=== PATIENT | female | born 1955 | race Caucasian/White ===

== ENCOUNTER → 2017-11-02 17:24 | Outpatient (CLI) | payer OTHER, SELFPAY ==
[2017-11-02 14:15] VITALS: BP 120/72; BMI 31.2
== END ==
PROVIDERS: Family Provider Family Medicine; PCP Family Medicine; Visit Provider Nurse Practitioner Women's Health
DX: Z12.4 Encounter for screening for malignant neoplasm of cervix (principal)

== ENCOUNTER → 2017-12-07 10:39 | Outpatient (CLI) | payer OTHER, SELFPAY ==
--- NOTE | 2017-12-07 10:42 | HPBI_ITS ---
MAMMOGRAPHY - BILATERAL SCREENING REASON FOR EXAM: Female, 62 years old. Routine annual screening examination. PERTINENT HISTORY: Non-contributory. TECHNIQUE: Digital bilateral breast linda (3D mammographic acquisition) in the CC and MLO projections. 2-D mediolateral oblique (MLO) and craniocaudad (CC) views of both breasts were obtained. CAD: Full Field Digital Mammography with Computer Added Detection was performed. COMPARISON: Comparison is made with prior outside examination dated October 29, 2016. FINDINGS: Breast Composition: The breasts are heterogeneously dense, which may obscure small masses. There are no dominant masses or suspicious calcifications. No other significant abnormalities are identified. There has been no significant change since the prior study. HPBI/SCREENING MAMM (CAD), BILAT IMPRESSION: Stable bilateral screening mammogram. Yearly follow-up mammogram recommended. (A) ASSESSMENT CATEGORY: BIRADS Category 1: Negative. A letter regarding these results will be sent to the patient by the facility within 30 days. Approximately 10% of breast cancers are not detected by mammography. A normal mammogram should not delay biopsy of a clinically suspicious abnormality. [id number] Electronically Signed: Rajinder Vega MD at 12:47 EDT Tel [phone], Service support ,
== END ==
PROVIDERS: Visit Provider Nurse Practitioner Women's Health
DX: Z12.31 Encounter for screening mammogram for malignant neoplasm of breast (principal)
CPT/HCPCS: 77063; 77067

== ENCOUNTER → 2018-12-26 12:40 | Outpatient (CLI) | payer OTHER, SELFPAY ==
[2018-11-22 09:48] VITALS: BMI 31.2
--- NOTE | 2018-12-26 12:44 | BI_ITS ---
MAMMOGRAPHY - BILATERAL SCREENING REASON FOR EXAM: Female, 63 years old. Routine annual screening examination. PERTINENT HISTORY: Non-contributory. TECHNIQUE: Digital bilateral breast jhonny (3D mammographic acquisition) in the CC and MLO projections. 2-D mediolateral oblique (MLO) and craniocaudad (CC) views of both breasts were obtained. CAD: Full Field Digital Mammography with Computer Added Detection was performed. COMPARISON: Comparison is made with prior study of December 07, 2017. FINDINGS: Breast Composition: The breasts are heterogeneously dense, which may obscure small masses. There are no dominant masses or suspicious calcifications. No other significant abnormalities are identified. There has been no significant change since the prior study. BI/SCREEN MAMM (CAD) W/JHONNY BILAT IMPRESSION: Stable bilateral screening mammogram. Yearly follow-up mammogram recommended. (A) ASSESSMENT CATEGORY: BIRADS Category 1: Negative. A letter regarding these results will be sent to the patient by the facility within 30 days. Approximately 10% of breast cancers are not detected by mammography. A normal mammogram should not delay biopsy of a clinically suspicious abnormality. [id number] Electronically Signed: Rajinder Vega, at 14:28 EDT , Service support ,
== END ==
PROVIDERS: Referring Provider Nurse Practitioner Women's Health; Visit Provider Nurse Practitioner Women's Health
DX: Z12.31 Encounter for screening mammogram for malignant neoplasm of breast (principal)
CPT/HCPCS: 77063; 77067

== ENCOUNTER → 2020-03-28 09:55 | Outpatient (CLI) | payer OTHER, SELFPAY ==
[2018-11-22 09:48] VITALS: BMI 31.2
[2019-12-12 10:32] VITALS: BMI 31.2
--- NOTE | 2020-03-28 09:55 | BI_ITS ---
MAMMOGRAPHY - BILATERAL SCREENING REASON FOR EXAM: Female, 65 years old. Routine annual screening examination. PERTINENT HISTORY: Non-contributory. TECHNIQUE: Digital bilateral breast jhonny (3D mammographic acquisition) in the CC and MLO projections. 2-D mediolateral oblique (MLO) and craniocaudad (CC) views of both breasts were obtained. CAD: Full Field Digital Mammography with Computer Added Detection was performed. COMPARISON: Comparison is made with prior examination dated December 26, 2018 and December 07, 2017. FINDINGS: Breast Composition: The breasts are heterogeneously dense, which may obscure small masses. There are no dominant masses or suspicious calcifications. No other significant abnormalities are identified. There has been no significant change since the prior study. BI/SCREEN MAMM (CAD) W/JHONNY BILAT IMPRESSION: Stable bilateral screening mammogram. Yearly follow-up mammogram recommended. (A) ASSESSMENT CATEGORY: BIRADS Category 1: Negative. A letter regarding these results will be sent to the patient by the facility within 30 days. Approximately 10% of breast cancers are not detected by mammography. A normal mammogram should not delay biopsy of a clinically suspicious abnormality. [id number] Electronically Signed: Rajinder Vega, at 10:47 EDT , Service support ,
== END ==
PROVIDERS: Referring Provider Nurse Practitioner Women's Health; Visit Provider Nurse Practitioner Women's Health
DX: Z12.31 Encounter for screening mammogram for malignant neoplasm of breast (principal)
CPT/HCPCS: 77063; 77067

== ENCOUNTER → 2020-10-23 16:43 | Outpatient (CLI) | payer OTHER, SELFPAY ==
[2019-12-12 10:32] VITALS: BMI 31.2
--- NOTE | 2020-10-23 16:50 | US_ITS ---
STUDY: SUPERFICIAL ULTRASOUND - LEFT NECK. REASON FOR EXAM: Female, 65 years old. PALPABLE LEFT NECK MASS INFERIOR TO LEFT EAR X 3 MONTHS. PT C/O OF TENDERNESS AND INCREASE IN SIZE. TECHNIQUE: A superficial ultrasound was performed with real-time and static blackwell-scale imaging. COMPARISON: None. FINDINGS: There are at least 4 heterogeneous hypoechoic solid masses in the left side of the neck. The largest mass measures 3.3 cm x 2.1 cm x 2.5 cm. This corresponds the palpable abnormality and most likely represents a neoplastic process. Correlation with the CT scan of the neck is recommended. US/Head/Neck Soft Tissue IMPRESSION: Multiple masses seen in the left-sided neck for which the largest measures 3.3 cm x 2.1 cm x 2.5 cm. Correlation with the CT scan of the neck is recommended for further evaluation. Electronically Signed: Rajinder Vega MD at 8:32 EST , Service support ,
== END ==
PROVIDERS: PCP Family Medicine; Referring Provider Family Medicine; Visit Provider Family Medicine
DX: R59.1 Generalized enlarged lymph nodes (principal)
CPT/HCPCS: 76536

== ENCOUNTER → 2020-11-04 09:00 | Outpatient (CLI) | payer OTHER, SELFPAY ==
[2019-12-12 10:32] VITALS: BMI 31.2
--- NOTE | 2020-11-04 | ASPOS_PTH ---
PATIENT: RODNEY PICHARDO LOC: LAB U#:[id number] AGE/SX: 70/F ROOM: RE11/04/[address]: Dr. Jan Romano MD : 1955 BED: DIS: SPEC #: [id number] RECD: 11/04/20 09:00 STATUS: PONCE ELOY #: [id number] NGOZI: 11/04/20 00:[address]: Jan Romano DEPT: CYTOLOGY RECD BY: Kayla Jane ENTERED: 11/04/20 10:56 SP TYPE: ASP HERE OTHR DR: Dr. Lacho Leavitt MD Tissues: Parotid gland, NOS Procedures: Surgery Specimen Level IV Cytology Other Fine Needle Asp on Site HEADER OPERATION: Left parotid mass FNA PRE-OP DIAGNOSIS: Left parotid mass TISSUE SUBMITTED: Left parotid mass FNA DIAGNOSIS CYTOLOGY Fine needle aspiration, left parotid mass (smears and cell block): Oncocytic neoplasm. See comment. AM:nandini 11/05/2020 COMMENT The specimen is evaluated at the time of FNA by Dr. Mccarthy. Immediate Evaluation = Consistent with oncocytic neoplasm. A Warthin's tumor is favored. Clinical correlation is suggested. Case has been reviewed in consultation with Dr. Deleon who concurs with the above diagnosis. IDC:SJ CYTOLOGY STUDY Slides are reviewed. CYTOLOGY GROSS Received is 0.25 ml of reddish-denton fluid labeled with the patient's name, and designated left parotid mass. Five imprints and one pap are made from the submitted fluid and the rest is added to CytoLyt for cell block preparation. Submitted for cytology study. / nandini 11/04/2020 TC:5 CPT: 27961, 11454, 97483, 89370 ADDENDUM ADDENDUM ADDENDUM ADDENDUM ADDENDUM ADDENDUM ADDENDUM ADDENDUM ADDENDUM ADDENDUM 10/24/2021 09:42 ADDENDUM 10/24/2021 09:42 ADDENDUM 10/24/2021 09:42 ADDENDUM 10/24/2021 09:42 ADDENDUM 10/24/2021 09:42 This addendum is added to incorporate an outside pathology consultation report. The case was examined at [facility] (#[id number]) and the following diagnosis was rendered. Left parotid mass, fine needle aspiration: Oncocytic neoplasm. Please see complete above mentioned consultation report in EMR
== END ==
PROVIDERS: PCP Family Medicine; Referring Provider Otolaryngology; Visit Provider Otolaryngology
DX: D11.0 Benign neoplasm of parotid gland (principal)
CPT/HCPCS: 10021; 88161; 88305

== ENCOUNTER 2020-12-06 20:15 | Outpatient (RCR) | payer OTHER, SELFPAY ==
[2019-12-12 10:32] VITALS: BMI 31.2
[2020-12-06] MEDS: COVID-19 VACC, MRNA(PFIZER)/PF 30 MCG/0.3 ML SYRINGE IM (14:55)
[2020-12-27] MEDS: COVID-19 VACC, MRNA(PFIZER)/PF 30 MCG/0.3 ML SYRINGE IM (14:28)
== END 2021-03-04 23:59 ==
LOC: IMMUN 20:15
PROVIDERS: PCP Family Medicine; Visit Provider Family Medicine
DX: Z23 Encounter for immunization (principal)
CPT/HCPCS: 0001A; 0002A; 91300

== ENCOUNTER → 2020-12-25 13:14 | Outpatient (CLI) | payer OTHER, SELFPAY ==
[2020-12-16 10:24] VITALS: BMI 30.9
[2020-12-18 11:35] VITALS: BMI 30.8
--- NOTE | 2020-12-25 13:22 | CT_ITS ---
STUDY: CT CHEST WITH CONTRAST REASON FOR EXAM: Female, 65 years old. Staging salivary gland cancer. RADIATION DOSAGE (If Supplied By Facility): CTDIvol = ( 12.88 ) mGy, DLP = ( 418.07 ) mGycm TECHNIQUE: Transaxial imaging was performed following intravenous administration of IV 100ML ISOVUE 300. Multiplanar coronal and sagittal images were reformatted. Individualized dose optimization techniques were used for this CT. COMPARISON: None. FINDINGS: There is a 2.7 mm noncalcified nodule in the anterior aspect of the right upper lobe as seen on axial image #56. A similar-appearing well-defined nodule measuring 3.3 mm is seen in the medial aspect of the right upper lobe as seen on axial image #54. There is evidence of a 2.7 cm x 1 cm linear nodular density along the lateral aspect of the left lower lobe. This may represent an area of scarring. This extends into the posteromedial segment of the left lower lobe. Correlation with a PET scan is recommended for further evaluation. There is no demonstrated pleural abnormality. Normal heart and pericardium. Normal mediastinum. Normal hilar regions. Normal enhanced pulmonary arteries. Normal aorta arch and descending thoracic aorta. There are multi-level degenerative changes of the thoracic spine. There is no demonstrated abnormality of the visualized upper abdomen. CT/Chest WITH Contrast IMPRESSION: 2.7 JAQUAN by 1 cm linear nodular density along the lateral aspect of the left lower lobe extending to the posterior medial segment of the left lower lobe. I suspect this to be an area of scarring and atelectasis although correlation with a PET scan is recommended. There are 2 adjacent 3 mm and 2 mm noncalcified nodule is seen in the right upper lobe as described. Electronically Signed: Rajinder Vega MD at 14:10 EDT , Service support ,
== END ==
PROVIDERS: PCP Family Medicine; Referring Provider Student in an Organized Health Care Education/Training Program; Visit Provider Student in an Organized Health Care Education/Training Program
DX: C08.9 Malignant neoplasm of major salivary gland, unspecified (principal)
CPT/HCPCS: 71260; Q9967; A4216

== ENCOUNTER → 2021-01-22 12:57 | Outpatient (CLI) | payer OTHER, SELFPAY ==
[2020-12-16 10:24] VITALS: BMI 30.9
[2021-01-08 10:12] VITALS: BMI 30.7
--- NOTE | 2021-01-22 13:50 | SP.MBSS_ITS ---
Modified Barium Swallow - Patient Information Study Date: 01/22/21 Study Time: 13:00 Direct Billable Minutes: 120 Total Minutes procedure & reportin Diagnosis: dysphagia, unspecified Referring Physician: Herb Saldana Reason for Referral: To assess oropharyngeal musculature and determine presence of aspiration. 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 The pt will be undergoing radiation treatment from 12/30/20-02/12/21, 5X/week. She reported no prior past medical history. She denies difficulty swallowing at this time, although she is consuming soft food textures due to limited ROM opening mouth. She is currently drinking through a straw, as it is hard to deliver bolus and maintain good oral containment via a cup. She is also utilizing R sided bolus placement as she has noted pocketing in L buccal cavity. She first noted food began collecting on the L side of her mouth late June 2020. Current Diet Ordered: soft textures/thin liquids Dentition: WNL Mental Status: WNL Respiratory Status: Oxygenating on Room Air - Study Findings Consistencies: Thin Liquid, [place] Thick Liquid, Honey Thick Liquid, Pudding, Cookie - Penetration-Aspiration Scale Penetration-Aspiration Scale: OBJECTIVE ASSESSMENT OF SWALLOW FUNCTION (QUANTITATIVE ? PER TRIAL): PENETRATION / ASPIRATION SCALE (LYNCH): 1 = does not enter airway 2 = enters airway/above vocal folds/ejected 3 = enters airway/above vocal folds/not ejected 4 = enters airway/contacts vocal folds/ejected 5 = enters airway/contacts vocal folds/not ejected 6 = enters airway/below vocal folds/ejected 7 = enters airway/below vocal folds/not ejected despite effort 8 = enters airway/below vocal folds/no effort - Penetration-Aspiration Scale Score Thin Liquid via teaspoon Result: 1= does not enter airway Thin Liquid via teaspoon Trial 2 Result: 1= does not enter airway Thin Liquid via single sip from straw Result: 1= does not enter airway Thin Liquid via single sip from straw Trial 2 Result: 2= enter airway/above vocal folds/ejected - large single sip via straw with penetration above the cords with ejection Thin Liquid via sequential sips from straw Result: 2= enter airway/above vocal folds/ejected [place] Thick Liquid via large single sip from cup Result: 1= does not enter airway Honey Thick Liquid via large single sip from cup Result: 1= does not enter airway Pudding via teaspoon Result: 1= does not enter airway Cookie Result: 1= does not enter airway Thin Liquid via small single sip from cup Result: 1= does not enter airway - Oral Phase Labial Seal: No Labial Escape Tongue Control During Bolus Hold: Posterior escape of less than half of bolus Bolus Preparation/Mastication: Slow prolonged chewing/mashing with complete recollection Bolus Transport/Lingual Motion: Brisk tongue motion Oral Residue: Trace residue lining oral structures - Pharyngeal Phase Initiation of Pharyngeal Swallow: Bolus head at posterior laryngeal surgace of epiglottis Soft Palate Elevation: No bolus between soft palate and pharyngeal wall Laryngeal Elevation: Partial superior movement thyroid cart/partial apprx aryt- epig petiole Anterior Hyoid Excursion: Complete anterior movement Epiglottic Movement: Complete inversion Laryngeal Vestibule Closure at Height of Swallow: Incomplete; narrow column of air/contrast in laryngeal vestibule Pharyngoesophageal Segment Opening: Parital distension and partial duration; parital obstruction of flow Tongue Base Retraction: Trace column of contrast between tongue base & post. pharyngeal wall Pharyngeal Residue: Trace residue within or on pharyngeal structures - Diagnosis/Impression Diagnosis: mild oropharyngeal dysphagia (R13.12) Impression: Oral phase primarily significant for decreased ROM of jaw for mastication. With 1/4 of solid Giselle Doone cookie patient very minimally able to open mouth to consume cookie and begin mastication. Mastication slow but effective requiring three swallows to clear oral residue. Pharyngeal phase marked by slightly incomplete laryngeal vestibule closure at height of swallow. With large single sip and sequential sips of thin liquids via straw patient presented with penetration above the vocal cords with ejection. No aspiration found at this date and time. Recommending continued skilled ST intervention at outpatient level and repeat MBS to be considered 3 months post radiation. - Recommendations Diet: Thin Liquids Comment: soft and bite sized textures Compensatory Strategies: Small Bites, Small Sips - single sips only, Sips by straw only, Alternate bites/solids and sips/liquids, Sitting upright Supervision: Assist as needed Recommend Repeat Modified Barium Swallow: Yes - 3 months post radiation Need for Skilled Speech Therapy Services: Yes - Outpatient skilled ST every other week Education Completed: 1. Described result of evaluation., 2. Pt understands evaluation & agrees with goals and treatment plan. - Status Active ST Patient: Active - Contact Information [facility] Speech Therapy:: Anjelica Carlos MA, CCC-BISQUE KILN DRAWER [address] [address] [email or web address]
== END ==
PROVIDERS: PCP Family Medicine; Referring Provider Student in an Organized Health Care Education/Training Program; Visit Provider Student in an Organized Health Care Education/Training Program
DX: C07 Malignant neoplasm of parotid gland (principal)
CPT/HCPCS: 74230; 92611

== ENCOUNTER 2021-04-16 12:30 | Outpatient (RCR) | payer OTHER, SELFPAY ==
[2020-12-16 10:24] VITALS: BMI 30.9
[2020-12-18 11:35] VITALS: BMI 30.8
--- NOTE | 2021-01-07 11:28 | HP.PTEVAL_ITS ---
Patient's Visit Information RODNEY PICHARDO is a 65 year old F referred to Physical Therapy by Out of Town Doctor with a diagnosis of L spinal accessory nerve pathology. Date of Evaluation: 01/07/21 Physical Therapist: Lui West, PT, ATC - Visit Plan Frequency: 2-3x /Week Duration: 4 Weeks Plan: L shoulder AROM, L shoulder stretching and strengthening (rot cuff, UT, serratus), scap stab ex's, UBE, and HEP - Subjective Pt is R hand dominant. She states that she had a malignant tumor taken out of saliva gland and out of her facial nerve, which in turn affected her accessory nerve of her left side. She has trouble abducting left arm. She has some pain with abducting and elevating arm. She started radiation 01/06/2021 for 6 weeks. Her sx was 11/28/2020 to take out the tumor. Her mouth is also affected, she cannot open it very wide but she has been given exercises. No previous hx of cancer in the past. She is retired. The weakness is affecting how she is getting dressed. Her biggest form of exercise is taking walks. Sleep isnt affected. She desribes the pain as feeling like a pulled muscle. the L side of her face is still numb. She has been masssaging her posterior neck and shoulder which she says helps. Patient just began gardening again and isnt sure if this will affect it yet. Her pain is the worst when she is getting an arm through a sleeve when shes getting dressed. Patient is getting radiation every day, 5 days a week. - Pain L arm Pain Intensity (Out of 10): 0 Pain Intensity Range: 0, 5 - Objective Neuro: B UE sensation is WNL to lgiht touch. B bicepital reflex 2/3. ROM: R shoulder flex= 165, abd= 170, IR WNL, ER= 85: L shoulder flex= 82, abd= 67, IR WNL, ER= 72. MMT: R shoulder 5/5 throughout: L shoulder flex= 3+/5, abd= 3/5, ER= 4-/5, IR 5/5. Observation: L shoulder is lower than the right - Goals Goal 1:: Decrease L shoulder pain x 50% to aid with IADL's Goal Time Frame: 4-6 Weeks Goal 2:: Increase L shoulder flex and abd ROM x 30 degrees to aid with overhead lifting Goal Time Frame: 4-6 Weeks Goal 3:: Increase L shoulder strength x 1 grade to aid with IADL's Goal Time Frame: 4-6 Weeks Goal 4:: I with HEP Goal Time Frame: 4-6 Weeks - Rehabilitation Potential Physical Therapy Diagnosis: Pt has L shoulder weakness, limited ROM, and pain secondary to L accessory nerve pathology Rehabilitation Potential: Good - Anticipated Interventions Patient/Client Instruction: Educate patient on: Condition, Plan of Care For the Purpose of:: To improve self management Therapeutic Exercise to Include: Strength training, Endurance training, Postural training, Flexibilty training, Active ROM, Scapular Strength/Stabilization For the Purpose of:: To decrease pain, To increase ROM, To improve muscle perfor rachelle and motor function Cryotherapy (ice pack, ice massage): Yes For the Purpose of:: To decrease pain Thank you for the opportunity to evaluate your patient. For Medicare and Medicare HMO plans, please review the plan of care and approve it. It will need to be FAXED BACK to us at [phone] for Medicare purposes. For Medicare only, by signing this I certify the plan of care. Please let me know if there are questions or concerns regarding this plan of care. Physician Signature: Date:
--- NOTE | 2021-03-12 10:03 | HP.PTREVAL ---
Dr. Tyrel Bernal MD, It has been my pleasure to treat RODNEY PICHARDO over the last 7 visits for L spinal accessory nerve pathology. Please see the progress note below for an update on the physical therapy plan of care! Subjective: Pain is still there Objective/Function: L shoulder pain 10/06. L shoulder ROM: flex= 100, abd= 60 degrees. L shoulder MMT: IR 5/5, all other measurements 4/5 throughout. Pt is progressing well toward Rx goals Plan Plan: Cont with POC Goals Goal 1:: Decrease L shoulder pain x 50% to aid with IADL's Goal Time Frame: 4-6 Weeks Goal Progress: Progressing Goal 2:: Increase L shoulder flex and abd ROM x 30 degrees to aid with overhead lifting Goal Time Frame: 4-6 Weeks Goal Progress: Progressing Goal 3:: Increase L shoulder strength x 1 grade to aid with IADL's Goal Time Frame: 4-6 Weeks Goal Progress: Progressing Goal 4:: I with HEP Goal Time Frame: 4-6 Weeks Goal Progress: Progressing Anticipated Interventions Patient/Client Instruction: Educate patient on: Condition, Plan of Care For the Purpose of:: To improve self management Therapeutic Exercise to Include: Strength training, Endurance training, Postural training, Flexibilty training, Active ROM, Scapular Strength/Stabilization For the Purpose of:: To decrease pain, To increase ROM, To improve muscle performance and motor function Cryotherapy (ice pack, ice massage): Yes For the Purpose of:: To decrease pain Please do not hesitate to contact me at [phone] by phone or if you have questions or concerns regarding this new plan of care! Sincerely, Lui West, PT, ATC
--- NOTE | 2021-06-30 15:29 | HP.PTDCNRP_ITS ---
RODNEY PICHARDO was seen in my office for initial evaluation on 01/07/21. The following Plan of Care was established for this patient: Initial Frequency: 2-3x /Week Initial Duration: 4 Weeks Patient/Client Instruction: Educate patient on: Condition, Plan of Care For the Purpose of:: To improve self management Therapeutic Exercise to Include: Strength training, Endurance training, Postural training, Flexibilty training, Active ROM, Scapular Strength/Stabilization For the Purpose of:: To decrease pain, To increase ROM, To improve muscle performance and motor function Cryotherapy (ice pack, ice massage): Yes For the Purpose of:: To decrease pain This patient was last seen in our office . Pertinent comments regarding their Physical therapy will appear below: Pt was treated for 16 visits for L shoulder disfunction through the date of 04/16/21. Pt has not returned through todays date and is discontinued at this time. At this point I will be discontinuing this patient from physical therapy. I would be happy to see this patient again in the future if found appropriate by the physician. Thank you! Lui West, PT, ATC Balance/Gait/Functional tests - Balance/Special Test Scores Quick DASH Score: [phone]
== END 2021-04-16 19:00 | disposition home or self-care (01) ==
LOC: PT 12:30
PROVIDERS: PCP Family Medicine; Referring Provider Otolaryngology; Visit Provider Otolaryngology
DX: G52.8 Disorders of other specified cranial nerves (principal)
CPT/HCPCS: 97110; 97161; 97164

== ENCOUNTER → 2021-05-14 12:04 | Outpatient (CLI) | payer OTHER, SELFPAY ==
[2020-12-16 10:24] VITALS: BMI 30.9
[2021-01-23 10:12] VITALS: BMI 30.1
--- NOTE | 2021-05-14 12:07 | BI_ITS ---
MAMMOGRAPHY - BILATERAL SCREENING REASON FOR EXAM: Female, 66 years old. Routine annual screening examination. PERTINENT HISTORY: Non-contributory. TECHNIQUE: Digital bilateral breast jhonny (3D mammographic acquisition) in the CC and MLO projections. 2-D mediolateral oblique (MLO) and craniocaudad (CC) views of both breasts were obtained. CAD: Full Field Digital Mammography with Computer Added Detection was performed. COMPARISON: Comparison is made with prior study dated 03/28/2020 and 12/26/2018. FINDINGS: Breast Composition: The breasts are heterogeneously dense, which may obscure small masses. There are no dominant masses or suspicious calcifications. No other significant abnormalities are identified. There has been no significant change since the prior study. BI/SCRN MAMM (CAD)W/JHONNY BILAT IMPRESSION: Stable bilateral screening mammogram. Yearly follow-up mammogram recommended. (A) ASSESSMENT CATEGORY: BIRADS Category 1: Negative. A letter regarding these results will be sent to the patient by the facility within 30 days. Approximately 10% of breast cancers are not detected by mammography. A normal mammogram should not delay biopsy of a clinically suspicious abnormality. [id number] Electronically Signed: Rajinder Vega MD at 12:53 EDT , Service support ,
== END ==
PROVIDERS: PCP Family Medicine; Referring Provider Nurse Practitioner Women's Health; Visit Provider Nurse Practitioner Women's Health
DX: Z12.31 Encounter for screening mammogram for malignant neoplasm of breast (principal)
CPT/HCPCS: 77063; 77067

== ENCOUNTER → 2021-05-19 12:55 | Outpatient (CLI) | payer OTHER, SELFPAY ==
[2020-12-16 10:24] VITALS: BMI 30.9
[2021-01-23 10:12] VITALS: BMI 30.1
--- NOTE | 2021-05-19 14:17 | SP.MBSS_ITS ---
Modified Barium Swallow - Patient Information Study Date: 05/19/21 Study Time: 13:00 Direct Billable Minutes: 105 Total Minutes procedure & reportin Diagnosis: Primary parotid gland malignancy (C07) Referring Physician: Herb Saldana Reason for Referral: Objectively reassess swallow function and aspiration risk 3 months s/p radiation treatment. 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 The underwent radiation treatment from 12/30/20-02/12/21, 5X/week. She reports no prior past medical history. She denies difficulty swallowing at this time, although she continues with trismus and has to eat small bites. She additionally has L facial paresis and prefers drinking through a straw to maintain good oral containment. She is also utilizing R sided bolus placement to decrease pocketing in L buccal cavity. Current Diet Ordered: Soft and Bite Sized Textures / Thin Liquids Dentition: WNL Mental Status: WNL Respiratory Status: Oxygenating on Room Air - Penetration-Aspiration Scale Penetration-Aspiration Scale: OBJECTIVE ASSESSMENT OF SWALLOW FUNCTION (QUANTITATIVE ? PER TRIAL): PENETRATION / ASPIRATION SCALE (LYNCH): 1 = does not enter airway 2 = enters airway/above vocal folds/ejected 3 = enters airway/above vocal folds/not ejected 4 = enters airway/contacts vocal folds/ejected 5 = enters airway/contacts vocal folds/not ejected 6 = enters airway/below vocal folds/ejected 7 = enters airway/below vocal folds/not ejected despite effort 8 = enters airway/below vocal folds/no effort VIDEOFLOROSCOPIC SCALE SCORE (LYNCH): Grade I = aspiration of material that has penetrated into the laryngeal vestibule, intact cough reflex Grade II = aspiration < 10 % of the bolus, intact cough reflex Grade III = aspiration of < 10 % of the bolus, reduced cough reflex or aspiration of > 10 % of the bolus, intact cough reflex Grade IV = aspiration of > 10 % of the bolus, reduced cough reflex - Penetration-Aspiration Scale Score Thin Liquid via teaspoon Result: 1= does not enter airway Thin Liquid via teaspoon Trial 2 Result: 1= does not enter airway Thin Liquid via small single sip from cup Result: 1= does not enter airway Thin Liquid via sequential sips from cup Result: 2= enter airway/above vocal folds/ejected [place] Thick Liquid via small single sip from cup Result: 1= does not enter airway Honey Thick Liquid via small single sip from cup Result: 1= does not enter airway Pudding with esophageal screen Result: 1= does not enter airway Cookie (09/30 Giselle Doone) Result: 1= does not enter airway Thin Liquid via single sip from straw Result: 2= enter airway/above vocal folds/ejected Thin Liquid via single sip from straw Trial 2 Result: 2= enter airway/above vocal folds/ejected Comment: SENIOR ASIC DESIGN ENGINEER cued pt to decrease sip size, resulting in decreased amount of contrast penetrated in laryngeal vestibule. Thin Liquid via sequential sips from straw Result: 2= enter airway/above vocal folds/ejected Thin Liquid via small single sip from cup Trial 2 Result: 2= enter airway/above vocal folds/ejected - Oral Phase Labial Seal: No Labial Escape Tongue Control During Bolus Hold: Posterior escape of less than half of bolus Bolus Preparation/Mastication: Slow prolonged chewing/mashing with complete recollection Bolus Transport/Lingual Motion: Repetitive/disorganized tongue motion - Observed with piecemeal deglutition of cookie. Oral Residue: Residue collection on oral structures - Piecemeal deglutition of pudding and cookie noted. Pt independently cleared oral cavity of residue by initiating second swallow. - Pharyngeal Phase Initiation of Pharyngeal Swallow: Bolus head at posterior laryngeal surgace of epiglottis Soft Palate Elevation: No bolus between soft palate and pharyngeal wall Laryngeal Elevation: Partial superior movement thyroid cart/partial apprx aryt- epig petiole Anterior Hyoid Excursion: Partial anterior movement Epiglottic Movement: Partial inversion Laryngeal Vestibule Closure at Height of Swallow: Incomplete; narrow column of air/contrast in laryngeal vestibule Pharyngeal Stripping Wave: Present - complete Pharyngoesophageal Segment Opening: Parital distension and partial duration; parital obstruction of flow Tongue Base Retraction: Trace column of contrast between tongue base & post. pharyngeal wall Pharyngeal Residue: Trace residue within or on pharyngeal structures - Esophageal Phase Esophageal Clearance: Esophageal retention - Min retention of contrast noted in upper esophagus. No retrograde flow observed. - Treatment Strategies Effects of treatment strategies attemped:: Decreased bolus rate = Effective in decreasing amount/depth of laryngeal penetration. Decreased bolus size = Effective in decreasing amount/depth of laryngeal penetration. - Diagnosis/Impression Diagnosis: Mild oropharyngeal phase dysphagia (R13.12) Impression: The oral phase primarily marked by decreased ROM of jaw for mastication. She presented with prolonged but effective mastication of 1/4 Giselle Doone cookie. She had piecemeal deglutition with pudding and cookie, but was able to effectively clear oral residues with a second swallow. She had mild deficits in bolus control with posterior escape of thin liquid boluses, particularly with large or sequential sips via straw. The pharyngeal phase was marked by mildly decreased laryngeal elevation and anterior hyoid excursion resulting in decreased airway closure primarily observed with thin liquid trials. Across various thin liquid trials, the patient presented with penetration above the vocal cords with ejection. Penetration increased with large sips via straw and sequential sips. No aspiration observed during the study. - Recommendations Diet: Regular Textures - Easy to Chew, Thin Liquids Compensatory Strategies: Small Bites, Small Sips, Slow Rate - Sips one at a time., Alternate bites/solids and sips/liquids, Sitting upright Recommend Repeat Modified Barium Swallow: Yes - Will plan for follow-up MBS study in 6-12 months pending adherence to oropharyngeal exercise program and continued monitoring of swallow function in OP speech therapy. Need for Skilled Speech Therapy Services: Yes Comment: Would recommend continued outpatient speech therapy for continued ongoing assessment of diet tolerance, training in recommended strategies to decrease aspiration risk, continued management of trismus, and continued training in oropharyngeal strengthening program with emphasis on exercises to improve anterior hyoid excursion and laryngeal elevation. SENIOR ASIC DESIGN ENGINEER encouraged increasing repetitions of Zahra, Donald, and Effortful swallows when completing exercise program 3-5X daily. Additionally, will monitor voice as pt notes persisting episodes of hoarseness s/p radiation. Will continue to train masseter-driven smile for optimal labial ROM and function. Education Completed: 1. Described result of evaluation., 2. Pt understands evaluation & agrees with goals and treatment plan., 7. Pt requires further education on strategies & risks. - Status Active ST Patient: Active - Contact Information [facility] Speech Therapy:: Effie Templeton M.A. CCC-SENIOR ASIC DESIGN ENGINEER Speech-Language Pathologist [facility] [address] [place] [address] [email or web address] [phone] 05/19/21 14:56
== END ==
PROVIDERS: PCP Family Medicine; Referring Provider Student in an Organized Health Care Education/Training Program; Visit Provider Student in an Organized Health Care Education/Training Program
DX: C07 Malignant neoplasm of parotid gland (principal)
CPT/HCPCS: 74230; 92611

== ENCOUNTER 2021-05-21 10:00 | Outpatient (RCR) | payer OTHER, SELFPAY ==
[2019-12-12 10:32] VITALS: BMI 31.2
[2020-12-16 10:24] VITALS: BMI 30.9
[2020-12-18 11:35] VITALS: BMI 30.8
--- NOTE | 2020-12-25 13:54 | HP.SP.AD_ITS ---
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 The pt will be undergoing radiation treatment from 12/30/20-02/12/21, 5X/week. She reported no prior past medical history. She denies difficulty swallowing at this time, although she is consuming soft food textures due to limited ROM opening mouth. She is currently drinking through a straw, as it is hard to deliver bolus and maintain good oral containment via a cup. She is also utilizing R sided bolus placement as she has noted pocketing in L buccal cavity. She first noted food began collecting on the L side of her mouth late June 2020. 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 Patient Allergies - Allergies Allergies aspirin Adverse Reaction (Mild, Verified 12/18/20 11:32) Hives Objective Oral Motor - Oral Status Dentition: WNL - Labial Impairment: Severe Observation at Rest: Left Droop Pucker: Moderate Retraction: Severe Alternating Pucker/Retraction: Severe Involuntary Movement noted: No - Lingual Impairment: Mild Protrusion: WNL Retraction: WNL Lateralization: Moderate Involuntary Movement: No - Lingual Comments Comments: The pt presents with mild-moderate lingual weakness when assessing tongue resistance bilaterally. - Jaw Impairment: Moderate Opening: Moderate Closing: WNL Involuntary Movement: No - Jaw Comments Comments: The pt presents with left facial droop, ipsilateral to facial nerve sacrifice from left total parotidectomy. Pt presented with moderately restricted jaw ROM. - Oral Motor Comments Comments: The pt denies change in taste or sensation to any part of the oral cavity. She notes decreased facial sensation progressing to numbness at the jaw from the outside of cheek. She denies changes in vocal quality at this time, but did note impaired articulation. The pt presents with mild dysarthria characterized by mildly slurred speech due to L sided facial paralysis negatively impacting pt's ability to clearly produce stop consonants consistently in conversation. CRANIAL NERVE EXAMINATION: TRIGEMINAL NERVE (V) ? impaired; mildly decreased hyolaryngeal elevation. FACIAL NERVE (VII) ? 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 VAGUS NERVE (X) ? no clinical abnormalities observed. HYPOGLOSSAL NERVE (XII) ? impaired; lingual weakness laterally when assessing L and R sided tongue resistance. - Respiratory Status Respiratory Status: Room Air Other Impressions - Comments Bedside Swallow Evluation -: The pt consumed all trials of po intake self-administered. She reported she has been avoiding tough to chew meats, such as pork chops and steak at this time due to difficulty opening mouth sufficiently. The pt consumes liquids only by straw due to difficutly with jaw opening, as well. She consumes bites and sips on R side of her mouth due to L sided facial paralysis, as she notes that pocketing can occur on the L side. Trialed sips of liquids via straw. Pt presents with mildly decreased laryngeal elevation, no anterior spillage, timely swallow, no overt s/s of aspiration, and no changes in vocal quality post deglutition. The pt consumed bites of applesauce with good oral containment, no overt s/s of aspiration, and no oral residue or buccal pocketing noted. Trialed bites of regular-textured Giselle Doone cookie. The pt independently consumed bites with small bites, prolonged but adequate mastication, no overt s/s of aspiration, and no oral residue noted after the swallow. Will recommend pt for Regular (Easy to Chew) textures / Thin liquids with aspiration precautions for liquids by straw only, deliver bolus to R side of oral cavity, small bites/sips, alternate liquids and solids, upright 90 degrees. Pt and verbalized unde rstanding and are agreeable to recommendations. Education -: Additional education provided for impact of radiation treatment on swallow function during and post treatment, including effects such as mucositis, radiation fibrosis, and trismus. Provided pt handout of prophlactic home exercise program with goal to maintain swallow function, maintain oral intake, and reduce side effects of treatment on swallow mechanism. The pt completed repetitions of each exercises with minimal verbal instruction and demonstration. The pt and , [place], verbalized understanding of purpose of exercise program, as well as recommended frequency. Additionally, RADIOLOGICAL ENGINEER recommended MBS study to objectively assess swallow function, aspiration risk, and establish further recommendations for diet textures, compensatory strategies, and aspiration precautions. Pt and agreeable to recommendation. Swallowing Scales -: Functional Oral Intake Scale: 6 - Total oral intake of multiple consistencies, but must avoid specific foods or liquid items. Performance Status Scale for Head and Neck Cancer Patients: Normalcy of Diet - 60 - Dry Bread and crackers. Public Eating - 75 - No restriction of place, but restricts diet when in public. Understandability of Speech - 75 - Understandable most of the time; occasional repetition if necessary. Plan - Plan Plan: Will recommend pt for dysphagia therapy to address oropharyngeal dysphagia related to parotid gland cancer and to provide pt further education re: prophylactic exercise program, ongoing diet assessment, aspiration precautions, and compensatory strategies to decrease risk for aspiration. Without skilled ST services, the pt is at risk for aspiration, choking, and weight loss. Additionally, will provide pt compenstory strategies to improve speech clarity due to mild dysarthria. - Recommendations MBS: Yes Treatment Warranted: Yes - Frequency Frequency: Every Other Week Duration: 12 Months - Prognosis Prognosis: Good - Goals that are Established: Determination:: Goals will be added/modified as deemed necessary and appropriate. Therapy will be discontinued when results of re-evaluation indicate therapy is no longer needed or lack of progress has been documented. - Goal #1-5 Goal #1: The pt will consume least restrictive diet textures without overt s/s of aspiration with 90% accuracy with minimal verbal cues for use of compensatory strategies to decrease risk for aspiration. Goal #2: The pt will complete an oropharyngeal exercise program during and post radiation treatment X10 repetitions, 3-5X daily independently to improve and maintain strength, ROM, and coordination of swallowing mechanism. Goal #3: The pt will complete jaw strength, coordination, and ROM exercises during and post radiation treatment X10 repetitions, 3-5X daily independently to improve and maintain mastication abilities. Goal #4: The pt will participate in MBS study to objectively assess swallow function and provide recommendations for safest, least restricitive diet and compensatory strategies to reduce risk for aspiration. Education - Patient has Indicated that the Following Identified Educational Needs: None The Patient has indicated that they have no educational or learning abilities that may effect their care.: Yes - Patient Instruction Patient Education: Diagnosis, Treatment Plan, Goals, Safety Precautions, Diet Level, Home Exercise Program Other Education: SEE Education Note above. Person Taught: Patient, Family Teaching Method: Discussion, Handout, Teach back Response to teaching: Return demonstration, Verbalize understanding
== END 2021-05-21 19:00 | disposition home or self-care (01) ==
LOC: SP 10:00
PROVIDERS: PCP Family Medicine; Referring Provider Student in an Organized Health Care Education/Training Program; Visit Provider Student in an Organized Health Care Education/Training Program
DX: C08.9 Malignant neoplasm of major salivary gland, unspecified (principal)
CPT/HCPCS: 92526; 92610

== ENCOUNTER 2021-09-09 12:25 | Day surgery (SDC) | payer OTHER, SELFPAY ==
[2020-12-16 10:24] VITALS: BMI 30.9
[2021-09-09] VITALS (7 sets, daily range): BP systolic 101–121; BP diastolic 59–73; PULSE 60–74; RESP 16; TEMP 35.9–36.6; O2SAT 97–100; BMI 25.5
[2021-09-09] MEDS: Lactated Ringers 1,000 ML 15 ML IV (13:27)
--- NOTE | 2021-09-09 13:30 | COLBX_PTH ---
PATIENT: RODNEY PICHARDO LOC: EN U#:[id number] AGE/SX: 66/F ROOM: RE09/09/[address]: Dr. Sukhi Wallis DO : 1955 BED: DIS: 09/09/2021 SPEC #: [id number] RECD: 09/09/21 16:17 STATUS: PONCE REGabbi #: [id number] NGOZI: 09/09/21 13:[address]: Sukhi Wallis DEPT: SURGICAL PATHOLOGY RECD BY: Kayla Jane ENTERED: 09/10/21 10:03 SP TYPE: COLON BX OTHR DR: Dr. Maldonado Dash MD Tissues: Sigmoid colon biopsy Procedures: Surgery Specimen Level IV HEADER OPERATION: Colonoscopy, open access PRE-OP DIAGNOSIS: Screening colonoscopy TISSUE SUBMITTED: Sigmoid colon polyp biopsy MICROSCOPIC DIAGNOSIS Sigmoid colon polyp, biopsy: Tubular adenoma. AM:nandini 09/11/2021 MICROSCOPIC DESCRIPTION Slides are reviewed. GROSS DESCRIPTION Received in fixative is one container labeled with the patient's name and designated polyp sigmoid colon biopsy. The specimen consists of one irregular fragment of light denton soft tissue that measures 0.5 x 0.3 x 0.1 cm. The specimen is totally submitted in one cassette. / AM:nandini 09/10/21 TC:5 CPT: 27350
--- NOTE | 2021-09-09 13:47 | HP.PCM_ITS ---
History and Physical Date of Admission: 09/09/21 RODNEY PICHARDO, is a 66 F who presents to the office today to establish care. No acute concerns at this time. She has a history of primary parotid gland malignancy status post surgery and radiotherapy. Currently in speech therapy to help with swallowing. There is also plan for reconstructive facial surgery due to facial nerve sacrifice following parotid gland surgery. For the most part, up-to-date with her age-appropriate screening. She states that she is due for colon cancer screening and believes that her last colon cancer screening was [facility]. ROS Const Constitutional: No body ache, chills, excessive sweating, fatigue, fever(s), frequent falls, headache(s), snoring, weakness, weight change, sleep problems or change in appetite Eyes Eyes: No blurry vision, change in vision, eye pain or Light sensitivity ENT ENT: No abnormal hearing, ear or mastoid pain, tinnitus, nasal congestion, headache(s) or neck pain Resp Respiratory: No cough, shortness of breath, snoring or wheezing Cardio Cardiology: No chest pain at rest, chest pain with exertion, excessive sweating, shortness of breath, dyspnea on exertion, lightheadedness, orthopnea or palpitations Gastro GI: No abdominal pain, change in bowel habits, constipation, cramping, diarrhea, nausea/dyspepsia or vomiting Genitourinary-Female: No burning urination, painful urination, urinary incontinence, urinary frequency or abnormal vaginal bleeding Musc Musculoskeletal: No abnormal gait, joint pain, back pain, limited range of motion, neck pain, numbness or tingling Skin Skin: No dry skin, redness, lesions, itchy eyes, rash or wounds Neuro Neurology: No abnormal gait, abnormal hearing, abnormal speech, dizziness, weakness, frequent falls, headache(s), memory loss, numbness or tingling Psych Psychiatric: No anxiety, No change in appetite, No depression, No memory loss and No Thoughts of harming yourself/Others Endo Endocrine: No cold intolerance, excessive sweating, fatigue, flushing, heat intolerance, increased thirst/drinking, increased hunger or weight change Aller/Imm Allergy/Immunologic: No itchy eyes, seasonal allergy symptoms, hives or wheezing Kayden/Lymp Hematologic/Lymphatic: No easy bleeding, easy bruising or enlarged lymph nodes Exam Const General: cooperative and comfortable Orientation: alert, awake and oriented x3 [facility] Head: normal to inspection, normocephalic and atraumatic Ears: hearing grossly normal bilaterally Neck Neck: normal visual inspection, full ROM, no lymphadenopathy and supple Neck mass: No Thyroid: thyroid normal Resp Effort & Inspection: normal respiratory effort and able to speak in complete sentences Auscultation: Bilateral: Clear to Auscultation Cardio Rate: regular rate Rhythm: regular rhythm Heart Sounds: S1 normal and S2 normal GI Palpation: soft (Nontender, no palpable organomegaly) Neuro General: patient alert, patient awake, patient oriented x3, moves all extremities and CN's II-XI intact bilaterally Extrem General: no clubbing, cyanosis or edema Psych Appearance: grossly normal Mental Status: mental status grossly normal Mood: congruent mood Affect: normal affect Assessment and Plan (1) screening colonoscopy. She was explained alternatives, risk, benefits including not withstanding bleeding, infection, sepsis, perforation, need for emergent . She will have an ASA of 1.
--- NOTE | 2021-09-09 14:21 | OP.COLON_ITS ---
Patient Name: Kymberly Sahu Procedure Date: 09/09/2021 1:52 PM Date of : 1955 Age: 66 Procedure: Colonoscopy Indications: Screening for colorectal malignant neoplasm Providers: Sukhi Wallis DO Medicines: See the Anesthesia note for documentation of the administered medications Patient Profile: This is a 66 year old female. Refer to note in patient chart for documentation of history and physical. Last Colonoscopy: 5 years ago. Complications: No immediate complications. Procedure: Pre-Anesthesia Assessment: - Prior to the procedure, a History and Physical was performed, and patient medications and allergies were reviewed. The patient is competent. The risks and benefits of the procedure and the sedation options and risks were discussed with the patient. All questions were answered and informed consent was obtained. Patient identification and proposed procedure were verified by the physician in the pre-procedure area. Mental Status Examination: alert and oriented. Airway Examination: normal oropharyngeal airway and neck mobility. Respiratory Examination: clear to auscultation. CV Examination: normal. Prophylactic Antibiotics: The patient does not require prophylactic antibiotics. Prior Anticoagulants: The patient has taken no previous anticoagulant or antiplatelet agents. ASA Grade Assessment: II - A patient with mild systemic disease. After reviewing the risks and benefits, the patient was deemed in satisfactory condition to undergo the procedure. The anesthesia plan was to use moderate sedation / analgesia (conscious sedation). Immediately prior to administration of medications, the patient was re-assessed for adequacy to receive sedatives. The heart rate, respiratory rate, oxygen saturations, blood pressure, adequacy of pulmonary ventilation, and response to care were monitored throughout the procedure. The physical status of the patient was re-assessed after the procedure. After I obtained informed consent, the scope was passed under direct vision. Throughout the procedure, the patient's blood pressure, pulse, and oxygen saturations were monitored continuously. The Colonoscope was introduced through the anus and advanced to the cecum, identified by appendiceal orifice and ileocecal valve. The colonoscopy was performed without difficulty. The patient tolerated the procedure well. The quality of the bowel preparation was good. Moderate Sedation: Moderate (conscious) sedation was administered by the endoscopy nurse and supervised by the endoscopist. The patient's oxygen saturation, heart rate, blood pressure and response to care were monitored. Total physician intraservice time was 15 minutes. Moderate (conscious) sedation was administered by the endoscopy nurse and supervised by the endoscopist. The patient's oxygen saturation, heart rate, blood pressure and response to care were monitored. Total physician intraservice time was 15 minutes. Scope In: 2:00:22 PM Scope Withdrawal Time 0 hours 9 minutes 7 seconds Scope Out: 2:13:06 PM Total Procedure Duration Time 0 hours 12 minutes 44 seconds Findings: A 5 mm polyp was found in the sigmoid colon. The polyp was sessile. The polyp was removed with a jumbo cold forceps. Resection and retrieval were complete. Verification of patient identification for the specimen was done. Estimated blood loss was minimal. The exam was otherwise without abnormality on direct and retroflexion views. Impression: - One 5 mm polyp in the sigmoid colon, removed with a jumbo cold forceps. Resected and retrieved. - The examination was otherwise normal on direct and retroflexion views. Recommendation: - Discharge patient to home. - Resume previous diet. - Continue present medications. - Await pathology results. - Return to my office PRN. - Repeat colonoscopy in 5 years for surveillance based on pathology results. Procedure Code(s): --- Professional --- 52081, Colonoscopy, flexible; with biopsy, single or multiple G0500, Moderate sedation services provided by the same physician or other qualified health rn care manager performing a gastrointestinal endoscopic service that sedation supports, requiring the presence of an independent trained observer to assist in the monitoring of the patient's level of consciousness and physiological status; initial 15 minutes of intra-service time; patient age 5 years or older (additional time may be reported with 44215, as appropriate) G0500, Moderate sedation services provided by the same physician or other qualified health rn care manager performing a gastrointestinal endoscopic service that sedation supports, requiring the presence of an independent trained observer to assist in the monitoring of the patient's level of consciousness and physiological status; initial 15 minutes of intra-service time; patient age 5 years or older (additional time may be reported with 13983, as appropriate) CPT copyright 2017 [employer]. All rights reserved. The codes documented in this report are preliminary and upon thread pulling machine attendant review may be revised to meet current compliance requirements. Sukhi aWllis DO 09/09/2021 2:21:29 PM This report has been signed electronically. Number of Addenda: 1 Note Initiated On: 09/09/2021 1:52 PM Addendum Number: 1 Addendum Date: 06/03/2022 7:11:03 AM MAC was used instead of moderate sedation for the patient. Sukhi Wallis DO 06/03/2022 7:11:07 AM This report has been signed electronically.
--- NOTE | 2021-09-09 14:22 | OP.CCLET_ITS ---
06/03/2022 Maldonado Dash MD [address] [place] [address] [place] [address] Re : Colonoscopy procedure for Kymberly Sahu Dear Dr. Dash This procedure was performed on Thursday, September 09, 2021. My impressions and recommendations are as follows: Impressions : - One 5 mm polyp in the sigmoid colon, removed with a jumbo cold forceps. Resected and retrieved. - The examination was otherwise normal on direct and retroflexion views. Recommendations : - Discharge patient to home. - Resume previous diet. - Continue present medications. - Await pathology results. - Return to my office PRN. - Repeat colonoscopy in 5 years for surveillance based on pathology results. My findings are described in the full procedure note, which is enclosed. If I can be of further assistance, please feel free to contact me at . Sincerely, Sukhi Friend, 09/09/2021 2:21:29 PM This report has been signed electronically.
== END 2021-09-09 15:24 | disposition home or self-care (01) ==
LOC: EN 12:26 → AC 12:27
PROVIDERS: PCP Internal Medicine; Referring Provider Internal Medicine; Visit Provider Internal Medicine Gastroenterology
PROC: 0DJD8ZZ Inspection of Lower Intestinal Tract, Via Natural or Artificial Opening Endoscopic (ICD-10-PCS; CPT 45378; principal; 2021-09-09 13:25)
DX: Z12.11 Encounter for screening for malignant neoplasm of colon (principal); D12.5 Benign neoplasm of sigmoid colon
CPT/HCPCS: 45380; 88305; J7120; J2405

== ENCOUNTER 2021-11-11 10:00 | Outpatient (RCR) | payer OTHER, SELFPAY ==
[2020-12-16 10:24] VITALS: BMI 30.9
== END 2021-11-11 19:00 | disposition home or self-care (01) ==
LOC: SP 10:00
PROVIDERS: PCP Internal Medicine; Referring Provider Student in an Organized Health Care Education/Training Program; Visit Provider Student in an Organized Health Care Education/Training Program
DX: C08.9 Malignant neoplasm of major salivary gland, unspecified (principal); C07 Malignant neoplasm of parotid gland
CPT/HCPCS: 92526

== ENCOUNTER 2022-02-10 10:35 | Outpatient (RCR) | payer OTHER, SELFPAY ==
[2020-12-16 10:24] VITALS: BMI 30.9
== END 2022-02-10 10:37 | disposition home or self-care (01) ==
LOC: SP 10:35
PROVIDERS: PCP Internal Medicine; Visit Provider Student in an Organized Health Care Education/Training Program
DX: Z00.00 Encounter for general adult medical examination without abnormal findings (principal)

== ENCOUNTER → 2022-05-18 | Outpatient (CLI) | payer MEDICARE, SELFPAY ==
[2020-12-16 10:24] VITALS: BMI 30.9
--- NOTE | 2022-05-18 10:02 | BI_ITS ---
MAMMOGRAPHY - BILATERAL SCREENING REASON FOR EXAM: Female, 67 years old. Routine annual screening examination. PERTINENT HISTORY: Non-contributory. TECHNIQUE: Digital bilateral breast jhonny (3D mammographic acquisition) in the CC and MLO projections. 2-D mediolateral oblique (MLO) and craniocaudad (CC) views of both breasts were obtained. CAD: Full Field Digital Mammography with Computer Added Detection was performed. COMPARISON: Comparison is made with prior study 05/14/2021 and 03/28/2020. FINDINGS: Breast Composition: The breasts are heterogeneously dense, which may obscure small masses. There are no dominant masses or suspicious calcifications. No other significant abnormalities are identified. There has been no significant change since the prior study. BI/SCRN MAMM (CAD)W/JHONNY BILAT IMPRESSION: Stable bilateral screening mammogram. Yearly follow-up mammogram recommended. (A) ASSESSMENT CATEGORY: BIRADS Category 1: Negative. A letter regarding these results will be sent to the patient by the facility within 30 days. Approximately 10% of breast cancers are not detected by mammography. A normal mammogram should not delay biopsy of a clinically suspicious abnormality. [id number] Electronically Signed: Rajinder Vega MD at 11:23 EDT ,
== END | disposition home or self-care (01) ==
LOC: OPBI 10:01
PROVIDERS: PCP Internal Medicine; Visit Provider Nurse Practitioner Women's Health
DX: Z12.31 Encounter for screening mammogram for malignant neoplasm of breast (principal)
CPT/HCPCS: 77063; 77067

== ENCOUNTER → 2022-05-26 | Outpatient (CLI) | payer MEDICARE, SELFPAY ==
[2020-12-16 10:24] VITALS: BMI 30.9
--- NOTE | 2022-05-26 15:40 | SP.MBSS_ITS ---
Modified Barium Swallow - Patient Information Study Date: 05/26/22 Study Time: 13:00 Direct Billable Minutes: 65 Total Minutes procedure & reportin Diagnosis: Primary parotid gland malignancy (C07) Referring Physician: Herb Saldana Reason for Referral: Objectively assess swallow function, risk for aspiration, and determine recommendations for least restrictive diet textures and compensatory strategies to improve safety of swallow. 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 The underwent radiation treatment from 12/30/20-02/12/21, 5X/week. She reports no prior past medical history. She denies difficulty swallowing at this time, although she continues with trismus and has to eat small bites. She additionally has L facial paresis and prefers drinking through a straw to maintain good oral containment. She is also utilizing R sided bolus placement to decrease pocketing in L buccal cavity. 05/19/2021 was most recent MBSS. She was recommended for Easy to Chew textures / Thin liquids, continued dysphagia therapy to train in oropharyngeal exercise program. She followed quarterly with OP ST and we referred for repeat MBSS to monitor pt's risk for worsening dysphagia and aspiration risk s/p radiation treatment. Current Diet Ordered: Regular textures / Thin liquids Dentition: WNL Mental Status: WNL Respiratory Status: Oxygenating on Room Air - Penetration-Aspiration Scale Penetration-Aspiration Scale: OBJECTIVE ASSESSMENT OF SWALLOW FUNCTION (QUANTITATIVE ? PER TRIAL): PENETRATION / ASPIRATION SCALE (LYNCH): 1 = does not enter airway 2 = enters airway/above vocal folds/ejected 3 = enters airway/above vocal folds/not ejected 4 = enters airway/contacts vocal folds/ejected 5 = enters airway/contacts vocal folds/not ejected 6 = enters airway/below vocal folds/ejected 7 = enters airway/below vocal folds/not ejected despite effort 8 = enters airway/below vocal folds/no effort VIDEOFLOROSCOPIC SCALE SCORE (LYNCH): Grade I = aspiration of material that has penetrated into the laryngeal vestibule, intact cough reflex Grade II = aspiration < 10 % of the bolus, intact cough reflex Grade III = aspiration of < 10 % of the bolus, reduced cough reflex or aspiration of > 10 % of the bolus, intact cough reflex Grade IV = aspiration of > 10 % of the bolus, reduced cough reflex - Penetration-Aspiration Scale Score Thin Liquid via teaspoon Result: 1= does not enter airway Thin Liquid via teaspoon Trial 2 Result: 1= does not enter airway Thin Liquid via small single sip from cup Result: 1= does not enter airway [place] Thick Liquid via small single sip from cup Result: 1= does not enter airway [place] Thick Liquid via small single sip from cup Result: 1= does not enter airway Pudding via teaspoon with esophageal screen Result: 1= does not enter airway 1/2 Cookie Result: 1= does not enter airway Thin Liquid via single sip from straw Result: 2= enter airway/above vocal folds/ejected - trace Thin Liquid via sequential sips from straw Result: 2= enter airway/above vocal folds/ejected - Oral Phase Labial Seal: No Labial Escape Tongue Control During Bolus Hold: Posterior escape of less than half of bolus Bolus Preparation/Mastication: Slow prolonged chewing/mashing with complete recollection Bolus Transport/Lingual Motion: Delayed initiation of tongue motion Oral Residue: Residue collection on oral structures - Pharyngeal Phase Initiation of Pharyngeal Swallow: Bolus head in pyriforms Soft Palate Elevation: No bolus between soft palate and pharyngeal wall Laryngeal Elevation: Partial superior movement thyroid cart/partial apprx aryt- epig petiole Anterior Hyoid Excursion: Partial anterior movement Epiglottic Movement: Complete inversion Laryngeal Vestibule Closure at Height of Swallow: Incomplete; narrow column of air/contrast in laryngeal vestibule Pharyngeal Stripping Wave: Present - complete Pharyngoesophageal Segment Opening: Parital distension and partial duration; parital obstruction of flow Tongue Base Retraction: Trace column of contrast between tongue base & post. pharyngeal wall Pharyngeal Residue: Trace residue within or on pharyngeal structures - Esophageal Phase Esophageal Clearance: Complete clearance - Diagnosis/Impression Diagnosis: Mild oropharyngeal phase dysphagia (R13.12) Impression: The oral phase is primarily marked by... -Moderate-severe trismus, which impacts bite size. The patient demonstrated adequate mastication of regular textured cookie. -Decreased bolus control with premature posterior loss to the pyriform sinuses prior to swallow onset for certain trials. -Mildly delayed tongue motion for A-P transport, improved from disorganized/repetitive tongue motion observed on previous MBSS. The pharyngeal phase is primarily marked by... -Mildly decreased airway closure during the swallow due to decreased laryngeal elevation and anterior hyoid excursion. Improved epiglottic inversion from previous MBSS. -Trace pharyngeal residue. -Laryngeal penetration of thin liquids by straw with full ejection from the laryngeal vestibule. The patient had improved PAS scores with thin liquid trial by cup as compared to previous MBSS. -No aspiration observed during the study. - Recommendations Diet: Regular Textures - Solids prepared small bite size due to persisting trismus, Thin Liquids Comment: Continue sips by straw per pt preference due to deficits in labial seal Compensatory Strategies: Small Bites, Small Sips, Slow Rate - Sips one at a time, Sitting upright Recommend Repeat Modified Barium Swallow: Yes - Repeat MBSS in 12 months to monitor swallow function s/p radiation, as pt is at increased risk for worsening dysphagia and aspiration risk related to chcf effects of radiation. Need for Skilled Speech Therapy Services: Yes Comment: Will recommend continuing with home oropharyngeal exercise program 3-5X daily from OP speech therapy. Pt plans to continue to follow with OP speech therapy for rehabilitation of facial muscles 1X/quarter. Education Completed: 1. Described result of evaluation., 2. Pt understands evaluation & agrees with goals and treatment plan., 5. Patient demonstrates recommended strategies. - Status Active ST Patient: Active - Contact Information [facility] Speech Therapy:: Effie Templeton M.A. [facility] ENGAG[facility] MANAGER Speech-Language Pathologist [facility] [address] [place] [address] [email or web address] [phone] 05/26/22 16:01
== END | disposition home or self-care (01) ==
LOC: RAD 12:44
PROVIDERS: PCP Internal Medicine; Referring Provider Student in an Organized Health Care Education/Training Program; Visit Provider Student in an Organized Health Care Education/Training Program
DX: C07 Malignant neoplasm of parotid gland (principal)
CPT/HCPCS: 74230; 92611

== ENCOUNTER → 2022-08-06 | Outpatient (CLI) | payer MEDICARE, SELFPAY ==
[2020-12-16 10:24] VITALS: BMI 30.9
--- NOTE | 2022-08-06 09:17 | BD_ITS ---
STUDY: DUAL ENERGY X-RAY ABSORPTIOMETRY / DXA REASON FOR EXAM: Female, 67 years old. Postmenopausal TECHNIQUE: Bone Mineral Density (BMD) measurements of lumbar spine and bilateral hips were obtained. COMPARISON: None. FINDINGS: Lumbar Spine (L1-L4): g/cm2 (1.048) / T-score (0.0) / Z-score (1.8) Findings are suggestive of normal bone density with a low fracture risk. Left Femur Total: g/cm2 (0.824) / T-score (-1.0) / Z-score (0.3) Left Femoral Neck: g/cm2 (0.6 by) / T-score (-1.7) / Z-score (-0.2) Right Femur Total: g/cm2 (0.854) / T-score (-0.7) / Z-score (0.5) Right Femoral Neck: g/cm2 (0.683) / T-score (-1.5) / Z-score (0.0) BD/Dexa Bone Density Study IMPRESSION: The patient is considered osteopenic as outlined below according to World Shane Organization (WHO) criteria with a moderate fracture risk. Reference Information: The T-score is the number of standard deviations above or below the standard which is normal for young adults at their peak bone mineral density. The World Health Organization (WHO) interprets the T-scores as follows: Above -1 Normal bone density Between -1 and -2.5 Osteopenia Equal to / or below -2.5 Osteoporosis As a practical clinical guideline, osteopenia may be graded as follows: Mild -1 through -1.5 Moderate -1.6 through -2.0 Severe -2.1 through -2.4 The Z-score is the number of standard deviations above or below age-matched controls. A Z-score of less than -1.5 would be considered abnormal. References: 1. NIH Osteoporosis and Related Bone Diseases www osteo.org 2. International Society for Clinical Densitometry www iscd.org 3. National Osteoporosis Foundation www nof.org Electronically Signed: Rajinder Vega MD at 9:01 EST ,
== END | disposition home or self-care (01) ==
LOC: OPBD 09:16
PROVIDERS: PCP Internal Medicine; Referring Provider Nurse Practitioner Women's Health; Visit Provider Nurse Practitioner Women's Health
DX: Z78.0 Asymptomatic menopausal state (principal)
CPT/HCPCS: 77080

== ENCOUNTER 2022-10-26 10:30 | Outpatient (RCR) | payer MEDICARE, SELFPAY ==
[2020-12-16 10:24] VITALS: BMI 30.9
--- NOTE | 2022-04-06 17:11 | HP.SP.REEV ---
History - History Date of Eval: 04/06/22 Smoking Status: Never smoker Hx Tobacco Use: No - Pain Is pain an issue with your current prescribed condition?: No Patient Allergies - Allergies Allergies aspirin Adverse Reaction (Mild, Verified 12/22/21 10:12) Hives Previous/Current Goals - Goals 1-5 Previous Goal #1: The pt will consume least restrictive diet textures without overt s/s of aspiration with 90% accuracy with minimal verbal cues for use of compensatory strategies to decrease risk for aspiration. Goal 1 Status: PROGRESSING - The patient is tolerating a Regular textured / Thin liquids diet with use of compensatory strategies to decrease aspiration risk. She does present with mild mastication deficits due to severity of trismus. She also requires liquids by straw due to poor lip seal with cups with L facial palsy. Previous Goal #2: The pt will complete an oropharyngeal exercise program during and post radiation treatment X10 repetitions, 3-5X daily independently to improve and maintain strength, ROM, and coordination of swallowing mechanism. Goal 2 Status: PROGRESSING - Pt continues with phone alarms as an external reminder to do oropharyngeal exercises. She reports completing 2-3X daily. Pt completed effortful X10 reps, Zahra X10 reps, Donald X10 reps. She required sips of water between repetitions intermittently to complete exercises. Previous Goal #3: The pt will complete jaw strength, coordination, and ROM exercises during and post radiation treatment X10 repetitions, 3-5X daily independently to improve and maintain mastication abilities. Goal 3 Status: LIMITED PROGRESS - Pt utilizes jaw opening device to maintain jaw opening. Due to recent facial surgery for raising L eyebrow, cheek, and lip she has not been able to use the device. The patient currently has 14mm of jaw opening from teeth to teeth. Previous Goal #4: The pt will participate in MBS study to objectively assess swallow function and provide recommendations for safest, least restrictive diet and compensatory strategies to reduce risk for aspiration. Goal 4 Status: Planned for 05/11/2022. Frequency of upcoming dysphagia sessions TBD following MBS study. Previous Goal #5: The patient will engage light bite down to smile during simple conversational samples (e.g. greetings, basic exchanges) in 80% of trials to promote participation in social exchanges in the patient?s home and community environments. Goal 5 Status: PROGRESSING - 40% acc for achieving symmetrical and equal timing for lip retraction/smile. 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 Without skilled ST services, the patient is at increased risk for aspiration, weight loss, and malnutrition. - Recommendations MBS: Yes Treatment Warranted: Yes Treatment Warranted: Dysphagia - Progress Prognosis: Good - Frequency Frequency: 1x/Week Duration: 12 Months Visits in this POC: No visit limit based on medical necessity - Patient/Family Goal Patient/Family Goal: Improve lip retraction for improved smile symmetry and labial seal for consuming liquids. - Goal #1-5 Goal #1: The pt will consume least restrictive diet textures without overt s/s of aspiration with 90% accuracy with minimal verbal cues for use of compensatory strategies to decrease risk for aspiration. Goal #2: The pt will complete an oropharyngeal exercise program during and post radiation treatment X10 repetitions, 3-5X daily independently to improve and maintain strength, ROM, and coordination of swallowing mechanism. Goal #3: The pt will complete jaw strength, coordination, and ROM exercises during and post radiation treatment X10 repetitions, 3-5X daily independently to improve and maintain mastication abilities. Goal #4: The pt will participate in MBS study to objectively assess swallow function and provide recommendations for safest, least restrictive diet and compensatory strategies to reduce risk for aspiration. Goal #5: The patient will engage light bite down to smile during simple conversational samples (e.g. greetings, basic exchanges) in 80% of trials to promote participation in social exchanges in the patient?s home and community environments.
--- NOTE | 2022-11-02 13:02 | HP.SP.DC_ITS ---
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 The underwent radiation treatment from 12/30/20-02/12/21, 5X/week. She followed with ST during and following radiation treatment for management of diet textures, implementation of oropharyngeal and jaw exercises, and implementation of strategies to improve oral phase and decrease risk for aspiration. She has participated in 3 MBSS, most recently 04/2022 which recommended Regular textures / Thin liquids and continued use of home exercise program. She was also seen during POC for facial rehabilitation with training in masseter-driven smile. Pt is currently managing trismus and able to complete exercises independently, although she admits to not always completing oropharyngeal strengthening. She wishes to discontinue ST at this time. 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 Will plan for yearly MBSS to monitor risk for worsening dysphagia s/p radiation treatment for parotid cancer.
== END 2022-10-26 19:00 | disposition home or self-care (01) ==
LOC: SP 10:30
PROVIDERS: PCP Internal Medicine; Referring Provider Student in an Organized Health Care Education/Training Program; Visit Provider Student in an Organized Health Care Education/Training Program
DX: C07 Malignant neoplasm of parotid gland; R13.12 Dysphagia, oropharyngeal phase
CPT/HCPCS: 92526

== ENCOUNTER → 2023-04-12 | Outpatient (CLI) | payer MEDICARE, SELFPAY ==
[2020-12-16 10:24] VITALS: BMI 30.9
--- NOTE | 2023-04-12 13:30 | ST.MBS ---
Modified Barium Swallow Patient Information Study Date: 04/12/23 Study Time: 13:00 Direct Billable Minutes: 62 Total Minutes procedure & reportin Diagnosis: Primary parotid gland malignancy (C07) Referring Physician: Herb Saldana Reason for Referral: Objectively assess swallow function, risk for aspiration, and determine recommendations for least restrictive diet textures and compensatory strategies to improve safety of swallow. 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 The underwent radiation treatment from 12/30/20-02/12/21, 5X/week. She reports no prior past medical history. Previously, alpesh reported hx of trismus, resulting in use of small bites. Patient denies difficulty swallowing at this time, and no longer uses small bites as compensatory atrategy. She additionally has L facial paresis and prefers drinking through a straw to maintain good oral containment. She is also utilizing R sided bolus placement to decrease pocketing in L buccal cavity. 05/26/2022 was most recent MBSS. She was recommended for Regular textures / Thin liquids, continued dysphagia therapy to train in oropharyngeal exercise program. She followed quarterly with OP ST and we referred for repeat MBSS to monitor pt's risk for worsening dysphagia and aspiration risk s/p radiation treatment. Patient discharged from speech therapy in October,, as pt felt she could manage trismus and complete oropharyngeal exercise program independently. Patient reported she has since not completed exercise program as much as she should. Current Diet Ordered: Regular Textures/ Thin Liquids Dentition: WNL Mental Status: WNL Respiratory Status: Oxygenating on Room Air Penetration-Aspiration Scale Penetration-Aspiration Scale: OBJECTIVE ASSESSMENT OF SWALLOW FUNCTION (QUANTITATIVE ? PER TRIAL): PENETRATION / ASPIRATION SCALE (LYNCH): 1 = does not enter airway 2 = enters airway/above vocal folds/ejected 3 = enters airway/above vocal folds/not ejected 4 = enters airway/contacts vocal folds/ejected 5 = enters airway/contacts vocal folds/not ejected 6 = enters airway/below vocal folds/ejected 7 = enters airway/below vocal folds/not ejected despite effort 8 = enters airway/below vocal folds/no effort VIDEOFLOROSCOPIC SCALE SCORE (LYNCH): Grade I = aspiration of material that has penetrated into the laryngeal vestibule, intact cough reflex Grade II = aspiration < 10 % of the bolus, intact cough reflex Grade III = aspiration of < 10 % of the bolus, reduced cough reflex or aspiration of > 10 % of the bolus, intact cough reflex Grade IV = aspiration of > 10 % of the bolus, reduced cough reflex Penetration-Aspiration Scale Score Thin Liquid via teaspoon: Result: 1= does not enter airway Thin Liquid via teaspoon Trial 2: Result: 1= does not enter airway Thin Liquid via single cup sip: Result: 1= does not enter airway [place] Thick Liquid by single cup sip: Result: 1= does not enter airway Thin Liquid by single straw sip: Result: 2= enter airway/above vocal folds/ejected Pudding by tsp w/esophageal screen : Result: 1= does not enter airway 1/2 Cookie: Result: 1= does not enter airway Thin Liquid by sequential straw sip : Result: 2= enter airway/above vocal folds/ejected Oral Phase Labial Seal: Escape progressing to mid-chin Tongue Control During Bolus Hold: Posterior escape of less than half of bolus Bolus Preparation/Mastication: Timely and efficient chewing and mashing Bolus Transport/Lingual Motion: Delayed initiation of tongue motion Oral Residue: Residue collection on oral structures Pharyngeal Phase Initiation of Pharyngeal Swallow: Bolus head in pyriforms Soft Palate Elevation: No bolus between soft palate and pharyngeal wall Laryngeal Elevation: Partial superior movement thyroid cart/partial apprx aryt-epig petiole Anterior Hyoid Excursion: Partial anterior movement Epiglottic Movement: Complete inversion Laryngeal Vestibule Closure at Height of Swallow: Incomplete; narrow column of air/contrast in laryngeal vestibule Pharyngeal Stripping Wave: Present - complete Pharyngoesophageal Segment Opening: Parital distension and partial duration; parital obstruction of flow Tongue Base Retraction: Trace column of contrast between tongue base & post. pharyngeal wall Pharyngeal Residue: Trace residue within or on pharyngeal structures Esophageal Phase Esophageal Clearance: Complete clearance Diagnosis/Impression Diagnosis: Mild Oropharyngeal Dysphagia (R13.12) Impression: The oral phase is primarily marked by... -Moderate L-sided facial weakness, with resulting moderately decreased labial seal. -Decreased bolus control with premature posterior loss to the pyriform sinuses prior to swallow onset for certain trials. -Mildly delayed tongue motion for A-P transport. The pharyngeal phase is primarily marked by... -Mildly decreased airway closure during the swallow due to decreased laryngeal elevation and anterior hyoid excursion. -Trace pharyngeal residue. -Laryngeal penetration of thin liquids by straw with full ejection from the laryngeal vestibule. -No aspiration observed during the study. The esophageal phase is grossly within normal limits. Recommendations Diet: Regular Textures and Thin Liquids Comment: Continue sips by straw per pt preference due to deficits in labial seal. Compensatory Strategies: Small Bites, Small Sips, Slow Rate and Sitting upright Recommend Repeat Modified Barium Swallow: Yes Comment: Repeat MBSS in 12 months to monitor swallow function s/p radiation, as pt is at increased risk for worsening dysphagia and aspiration risk related to detention effects of radiation. Need for Skilled Speech Therapy Services: No Comment: Skilled speech therapy services not warranted at this time, as patient feels she can manage trismus, and oropharyngeal exercise program independently. Will recommend patient re-consult with speech therapy if worsening symptoms occur. Will recommend pt continue strict at home otopharyngeal exercise program to manage dysphagia and aspiration risk related to technician terminal and repeater effects of radiation. Education Completed: 1. Described result of evaluation., 2. Pt understands evaluation & agrees with goals and treatment plan. and 5. Patient demonstrates recommended strategies. Status Active ST Patient: Active Contact Information [facility] Speech Therapy:: Marshall Sepulveda M.A. [employer] Speech-Language Pathologist [facility] [address] [place] [address]
== END | disposition home or self-care (01) ==
PROVIDERS: PCP Internal Medicine; Referring Provider Student in an Organized Health Care Education/Training Program; Visit Provider Student in an Organized Health Care Education/Training Program
DX: C07 Malignant neoplasm of parotid gland (principal)
CPT/HCPCS: 74230; 92611

== ENCOUNTER → 2023-05-25 | Outpatient (CLI) | payer MEDICARE, SELFPAY ==
[2020-12-16 10:24] VITALS: BMI 30.9
--- NOTE | 2023-05-25 09:54 | BI_ITS ---
MAMMOGRAPHY - BILATERAL SCREENING REASON FOR EXAM: Female, 68 years old. Routine annual screening examination. PERTINENT HISTORY: Non-contributory. TECHNIQUE: Digital bilateral breast jhonny (3D mammographic acquisition) in the CC and MLO projections. 2-D mediolateral oblique (MLO) and craniocaudad (CC) views of both breasts were obtained. CAD: Full Field Digital Mammography with Computer Added Detection was performed. COMPARISON: Comparison is made with prior study May 18, 2022 and May 14, 2021. FINDINGS: Breast Composition: The breasts are heterogeneously dense, which may obscure small masses. There are no dominant masses or suspicious calcifications. No other significant abnormalities are identified. There has been no significant change since the prior study. BI/SCRN MAMM (CAD)W/JHONNY BILAT IMPRESSION: Stable bilateral screening mammogram. Yearly follow-up mammogram recommended. (A) ASSESSMENT CATEGORY: BIRADS Category 1: Negative. A letter regarding these results will be sent to the patient by the facility within 30 days. Approximately 10% of breast cancers are not detected by mammography. A normal mammogram should not delay biopsy of a clinically suspicious abnormality. [id number] Electronically Signed: Rajinder Vega MD at 9:09 EDT ,
== END | disposition home or self-care (01) ==
LOC: OPBI 09:51
PROVIDERS: PCP Internal Medicine; Referring Provider Nurse Practitioner Women's Health; Visit Provider Nurse Practitioner Women's Health
DX: Z12.31 Encounter for screening mammogram for malignant neoplasm of breast (principal)
CPT/HCPCS: 77063; 77067

== ENCOUNTER → 2023-07-02 | Outpatient (CLI) | payer MEDICARE, SELFPAY ==
[2020-12-16 10:24] VITALS: BMI 30.9
[2023-07-02 12:16] LABS: Absolute Neutrophil Count 2.9 X10^3/uL (2.0-7.7); Basophil# 0.03 X10^3/uL; Basophil% 0.7 % (0-1); Eosinophil# 0.27 X10^3/uL; Hematocrit 39.9 % (37-47); Hemoglobin 12.6 g/dL (12.0-15.0); Mean Corp Hgb Conc 31.6 g/dL (32-36); Mean Corpuscular Hgb 30.3 pg (27.0-32.0); Mean Corpuscular Volume 95.9 fL (81-99); Mean Platelet Vol. 10.1 fl (6.2-12.0); Monocyte# 0.44 X10^3/uL; Monocyte% 9.8 % (0-10); NRBC Flagged by Analyzer 0 % (0-5); Neutrophil # 2.85 X10^3/uL (2.7-7.7); Neutrophil % 63.3 % (47-70); Platelet Count 274 K/mm3 (150-450); RBC Distribution Width CV 13.1 % (11.6-14.6); RBC Distribution Width SD 46.5 fl (35.1-43.9); Red Blood Count 4.16 M/mm3 (4.2-5.4); White Blood Count 4.5 K/mm3 (4.4-11.0)
[2023-07-02 13:09] LABS: ALB/GLOB Ratio 0.9 RATIO (0.9-2.4); AST(SGOT) 10 U/L (15-37); Alanine Aminotransfer ALT/SGPT 20 U/L (13-56); Albumin, Serum 3.5 g/dL (3.2-5.0); Alkaline Phosphatase 86 U/L (45-117); Anion Gap 3 (5-15); BUN 13 mg/dL (7-18); BUN/Creat Ratio 13.8 RATIO (10-20); Calcium,Total 9.4 mg/dL (8.5-10.1); Chloride 109 mmol/L (98-107); Cholesterol 238 mg/dL (200); Creatinine, Serum 0.94 mg/dL (0.55-1.02); EST Glomerular Filtration Rate 63 mL/min (>60); Est Glom Filt Rate - Afr Amer 76 mL/min (>60); Globulin 3.8 g/dL (2.2-4.2); Glucose 95 mg/dL (74-106); High Density Lipoprotein 85 mg/dL; Potassium 4.2 mmol/L (3.5-5.1); Protein, Total 7.3 g/dL (6.4-8.2); Sodium Level 140 mmol/L (136-145); Triglycerides 85 mg/dL; Very Low Density Lipoprotein 17 mg/dL (5-40)
== END | disposition home or self-care (01) ==
LOC: BIMLAB 09:51
PROVIDERS: PCP Internal Medicine; Referring Provider Internal Medicine; Visit Provider Internal Medicine
DX: E78.5 Hyperlipidemia, unspecified (principal)
CPT/HCPCS: 36415; 80053; 80061; 85025

== ENCOUNTER → 2024-04-26 | Outpatient (CLI) | payer MEDICARE, SELFPAY ==
[2020-12-16 10:24] VITALS: BMI 30.9
--- NOTE | 2024-04-26 13:45 | SP.MBSS_ITS ---
Modified Barium Swallow Patient Information Study Date: 04/26/24 Study Time: 13:00 Direct Billable Minutes: 70 Total Minutes procedure & reportin Diagnosis: Primary parotid gland malignancy C07 Referring Physician: Herb Saldana Reason for Referral: Objectively assess swallow function, risk for aspiration, and determine recommendations for least restrictive diet textures and compensatory strategies to improve safety of swallow. 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 The patient underwent radiation treatment from 12/30/20-02/12/21. Patient followed with ST during and following cancer treatment to address dysph agia and trismus secondary to L parotid gland malignancy, surgery, and cancer treatment. Several MBSS have been completed during and following treatment to monitor risk for worsening dysphagia (01/22/2021, 05/19/2021, 05/26/2022, 04/12/2023). Most recent MBSS on 04/12/2023 recommended Diet: Regular Textures and Thin Liquids; Comment: Continue sips by straw per pt preference due to deficits in labial seal. Compensatory Strategies: Small Bites, Small Sips, Slow Rate and Sitting upright; Recommend Repeat Modified Barium Swallow: Yes; Comment: Repeat MBSS in 12 months to monitor swallow function s/p radiation, as pt is at increased risk for worsening dysphagia and aspiration risk related to technician terminal and repeater effects of radiation. She returns for annual MBSS to monitor swallow function. Patient denies current difficulty swallowing; however, she continues to use small bites d/t continued trismus, which she manages with a jaw opening device used 3-4X/week. She additionally has L facial paresis and prefers drinking through a straw to maintain good oral containment. She is also utilizing R sided bolus placement to decrease pocketing in L buccal cavity. She has mild dysgeusia. Current Diet Ordered: Regular textures / Thin liquids Dentition: WNL and Natural Teeth Mental Status: WNL Respiratory Status: Oxygenating on Room Air Penetration-Aspiration Scale Penetration-Aspiration Scale: OBJECTIVE ASSESSMENT OF SWALLOW FUNCTION (QUANTITATIVE ? PER TRIAL): PENETRATION / ASPIRATION SCALE (LYNCH): 1 = does not enter airway 2 = enters airway/above vocal folds/ejected 3 = enters airway/above vocal folds/not ejected 4 = enters airway/contacts vocal folds/ejected 5 = enters airway/contacts vocal folds/not ejected 6 = enters airway/below vocal folds/ejected 7 = enters airway/below vocal folds/not ejected despite effort 8 = enters airway/below vocal folds/no effort VIDEOFLOROSCOPIC SCALE SCORE (LYNCH): Grade I = aspiration of material that has penetrated into the laryngeal vestibule, intact cough reflex Grade II = aspiration < 10 % of the bolus, intact cough reflex Grade III = aspiration of < 10 % of the bolus, reduced cough reflex or aspiration of > 10 % of the bolus, intact cough reflex Grade IV = aspiration of > 10 % of the bolus, reduced cough reflex Penetration-Aspiration Scale Score Thin Liquid via teaspoon: Result: 2= enter airway/above vocal folds/ejected Thin Liquid via teaspoon Trial 2: Result: 1= does not enter airway Thin Liquid via small single sip: cup: Result: 2= enter airway/above vocal folds/ejected [place] Thick Liquid via small single sip: cup: Result: 1= does not enter airway Pudding via teaspoon: Result: 1= does not enter airway Comment: Esophageal screen - Complete clearance. 1/2 Cookie: Result: 1= does not enter airway Thin Liquid via sequential sips:straw: Result: 2= enter airway/above vocal folds/ejected Oral Phase Labial Seal: No Labial Escape Tongue Control During Bolus Hold: Posterior escape of less than half of bolus Bolus Preparation/Mastication: Timely and efficient chewing and mashing Bolus Transport/Lingual Motion: Repetitive/disorganized tongue motion Oral Residue: Residue collection on oral structures Pharyngeal Phase Initiation of Pharyngeal Swallow: Bolus head in pyriforms Soft Palate Elevation: No bolus between soft palate and pharyngeal wall Laryngeal Elevation: Comp. Superior move thyroid cart w/comp. apprx arytenoid cart-epig pet Anterior Hyoid Excursion: Partial anterior movement Epiglottic Movement: Complete inversion Laryngeal Vestibule Closure at Height of Swallow: Incomplete; narrow column of air/contrast in laryngeal vestibule Pharyngeal Stripping Wave: Present - complete Pharyngoesophageal Segment Opening: Parital distension and partial duration; parital obstruction of flow (trace retention of thin and mildly thick barium in the UES, no retrograde flow) Tongue Base Retraction: Trace column of contrast between tongue base & post. pharyngeal wall Pharyngeal Residue: Trace residue within or on pharyngeal structures Esophageal Phase Esophageal Clearance: Complete clearance (trace retention of thin and mildly thick barium in the UES, no retrograde flow) Diagnosis/Impression Diagnosis: Mild oral dysphagia R13.11 Impression: The oral phase is primarily marked by... -Decreased bolus control with premature posterior loss of liquids to the pharynx prior to swallow onset. -Delayed and repetitive tongue motion for A-P transport. -Mild oral residues, which fully cleared with independent initiation of a second swallow as needed. The pharyngeal phase is grossly WNL. Mildly delayed swallow onset, trace retention of liquids in UES, mildly decreased anterior hyoid excursion. However, the patient maintains good airway closure throughout the study with only trace laryngeal penetration of thin liquids 3X, which fully ejected. No aspiration. Pt has excellent pharyngeal contraction with only trace pharyngeal residues after the swallow. Recommendations Diet: Regular Textures and Thin Liquids Comment: R sided bolus placement Compensatory Strategies: Small Bites, Small Sips, Sips by straw only (Patient preference), Slow Rate and Sitting upright Recommend Repeat Modified Barium Swallow: Yes Need for Skilled Speech Therapy Services: No Comment: [employer]PER[employer]OR recommended continued use of jaw opening device, as well as continued completion of maintenance oropharyngeal exercises 3-5X/week. Pt verbalized good understanding of recommendations and further dysphagia treatment is not recommended at this time. Education Completed: 1. Described result of evaluation. Status Active ST Patient: Active Contact Information [facility] Speech Therapy:: Effie Templeton M.A. [facility]3]-[employer] SUPER[employer] Speech-Language Pathologist [facility] [address] [place] [address] [email or web address] [phone]
== END | disposition home or self-care (01) ==
LOC: RAD 13:05
PROVIDERS: PCP Internal Medicine; Referring Provider Student in an Organized Health Care Education/Training Program; Visit Provider Student in an Organized Health Care Education/Training Program
DX: C07 Malignant neoplasm of parotid gland (principal)
CPT/HCPCS: 74230; 92611

== ENCOUNTER → 2024-07-04 | Outpatient (CLI) | payer MEDICARE, SELFPAY ==
[2020-12-16 10:24] VITALS: BMI 30.9
--- NOTE | 2024-07-04 09:53 | BI_ITS ---
MAMMOGRAPHY - BILATERAL SCREENING REASON FOR EXAM: Female, 69 years old. Routine annual screening examination. PERTINENT HISTORY: Non-contributory. TECHNIQUE: Digital bilateral breast jhonny (3D mammographic acquisition) in the CC and MLO projections. 2-D mediolateral oblique (MLO) and craniocaudad (CC) views of both breasts were obtained. CAD: Full Field Digital Mammography with Computer Added Detection was performed. COMPARISON: Comparison is made with prior study May 25, 2023 and May 18, 2022. FINDINGS: Breast Composition: The breasts are heterogeneously dense, which may obscure small masses. There are no dominant masses or suspicious calcifications. No other significant abnormalities are identified. There has been no significant change since the prior study. BI/SCRN MAMM (CAD)W/JHONNY BILAT IMPRESSION: Stable bilateral screening mammogram. Yearly follow-up mammogram recommended. (A) ASSESSMENT CATEGORY: BIRADS Category 1: Negative. A letter regarding these results will be sent to the patient by the facility within 30 days. Approximately 10% of breast cancers are not detected by mammography. A normal mammogram should not delay biopsy of a clinically suspicious abnormality. [id number] Electronically Signed: Rajinder Vega MD at 11:08 EDT ,
== END | disposition home or self-care (01) ==
LOC: OPBI 09:53
PROVIDERS: PCP Internal Medicine; Referring Provider Nurse Practitioner Women's Health; Visit Provider Nurse Practitioner Women's Health
DX: Z12.31 Encounter for screening mammogram for malignant neoplasm of breast (principal)
CPT/HCPCS: 77063; 77067

== ENCOUNTER → 2024-08-10 | Outpatient (CLI) | payer MEDICARE, SELFPAY ==
[2020-12-16 10:24] VITALS: BMI 30.9
[2024-08-04 08:29] VITALS: BMI 30.9
== END | disposition home or self-care (01) ==
LOC: OPBD 10:25
PROVIDERS: PCP Internal Medicine; Referring Provider Nurse Practitioner Women's Health; Visit Provider Nurse Practitioner Women's Health
DX: Z78.0 Asymptomatic menopausal state (principal); E78.5 Hyperlipidemia, unspecified
CPT/HCPCS: 77080

== ENCOUNTER → 2025-06-04 | Outpatient (CLI) | payer MEDICARE, SELFPAY ==
[2024-08-04 08:29] VITALS: BMI 30.9
[2025-06-04 12:13] LABS: Hematocrit 38.7 % (37-47); Hemoglobin 12.7 g/dL (12.0-15.0); Immature Granulocytes Count 0.020 X10^3/uL (0.0-0.0); Mean Corp Hgb Conc 32.8 g/dL (32-36); Mean Corpuscular Volume 91.7 fL (81-99); Mean Platelet Vol. 10.4 fl (6.2-12.0); NRBC Flagged by Analyzer 0 % (0-5); Platelet Count 283 K/mm3 (150-450); RBC Distribution Width CV 13.5 % (11.6-14.6); RBC Distribution Width SD 45.6 fl (35.1-43.9); Red Blood Count 4.22 M/mm3 (4.2-5.4); White Blood Count 4.2 K/mm3 (4.4-11.0)
[2025-06-04 13:01] LABS: AST(SGOT) 14 U/L (<=31); Alanine Aminotransfer ALT/SGPT 13 U/L (<=34); Albumin, Serum 4.1 g/dL (3.4-4.8); Alkaline Phosphatase 81 U/L (35-104); Anion Gap 12 (5-15); BUN 15 mg/dL (4-19); BUN/Creat Ratio 15.5 RATIO (10-20); Calcium,Total 9.5 mg/dL (7.6-11.0); Carbon Dioxide 22.0 mmol/L (21.0-32.0); Chloride 107 mmol/L (98-108); Cholesterol 228 mg/dL (<=200); Globulin 2.8 g/dL (2.2-4.2); Glucose 108 mg/dL (70-99); Low Density Lipoprotein Calc. 125 mg/dL; Potassium 4.0 mmol/L (3.3-5.1); Triglycerides 77 mg/dL; Very Low Density Lipoprotein 15 mg/dL (5-40); Vitamin D,25 Hydroxy 25.2 ng/mL (30-100); cholesterol:hdl ratio screen 2.60
== END | disposition home or self-care (01) ==
LOC: BIMLAB 08:27
PROVIDERS: PCP Internal Medicine; Referring Provider Internal Medicine; Visit Provider Internal Medicine
DX: E78.5 Hyperlipidemia, unspecified (principal); M85.80 Other specified disorders of bone density and structure, unspecified site
CPT/HCPCS: 36415; 80053; 80061; 82306; 85025

== ENCOUNTER → 2025-06-11 | Outpatient (CLI) | payer MEDICARE, SELFPAY ==
[2024-08-04 08:29] VITALS: BMI 30.9
--- NOTE | 2025-06-11 12:58 | SP.MBSS_ITS ---
Modified Barium Swallow Patient Information Study Date: 06/11/25 Study Time: 13:00 Direct Billable Minutes: 60 Total Minutes procedure & reportin Diagnosis: Primary parotid gland malignancy C07 Referring Physician: Herb Saldana Reason for Referral: Objectively assess swallow function, risk for aspiration, and determine recommendations for least restrictive diet textures and compensatory strategies to improve safety of swallow. 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 From 01/06/2021 ? 02/19/2021 she received adjuvant radiation therapy. 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 Pt also participated in facial rehabilitation for training in masseter-driven smile. Several MBSS have been completed during and following treatment to monitor risk for worsening dysphagia (01/22/2021, 05/19/2021, 05/26/2022, 04/12/2023, 04/26/2024). Most recent MBSS 04/26/2024 revealed, Mild oral dysphagia...Diet: Regular Textures and Thin Liquids; Comment: R sided bolus placement; Compensatory Strategies: Small Bites, Small Sips, Sips by straw only (Patient preference), Slow Rate and Sitting upright. She is planned for this repeat MBSS to monitor risk for aspiration and worsening dysphagia s/p radiation treatment for hx of HNC. Of note, pt denies current difficulty swallowing Regular textures / Thin liquids. She denies changes in taste, odynophagia, or xerostomia. She reports continued use of jaw opening device and participation in weekly massage to maintain trismus. Current Diet Ordered: Regular textures / Thin liquids Dentition: WNL and Natural Teeth Mental Status: WNL Respiratory Status: Oxygenating on Room Air Penetration-Aspiration Scale Penetration-Aspiration Scale: OBJECTIVE ASSESSMENT OF SWALLOW FUNCTION (QUANTITATIVE ? PER TRIAL): PENETRATION / ASPIRATION SCALE (LYNCH): 1 = does not enter airway 2 = enters airway/above vocal folds/ejected 3 = enters airway/above vocal folds/not ejected 4 = enters airway/contacts vocal folds/ejected 5 = enters airway/contacts vocal folds/not ejected 6 = enters airway/below vocal folds/ejected 7 = enters airway/below vocal folds/not ejected despite effort 8 = enters airway/below vocal folds/no effort VIDEOFLOROSCOPIC SCALE SCORE (LYNCH): Grade I = aspiration of material that has penetrated into the laryngeal vestibule, intact cough reflex Grade II = aspiration < 10 % of the bolus, intact cough reflex Grade III = aspiration of < 10 % of the bolus, reduced cough reflex or aspiration of > 10 % of the bolus, intact cough reflex Grade IV = aspiration of > 10 % of the bolus, reduced cough reflex Penetration-Aspiration Scale Score Thin Liquid via teaspoon: Result: 1= does not enter airway Thin Liquid via teaspoon Trial 2: Result: 1= does not enter airway Thin Liquid via small single sip: cup: Result: 2= enter airway/above vocal folds/ejected [place] Thick Liquid via small single sip: cup: Result: 1= does not enter airway Pudding via teaspoon: Result: 1= does not enter airway Comment: Esophageal screen - Complete clearance. 09/28 Cookie: Result: 1= does not enter airway Thin Liquid via sequential sips:straw: Result: 2= enter airway/above vocal folds/ejected Oral Phase Labial Seal: No Labial Escape Tongue Control During Bolus Hold: Posterior escape of less than half of bolus Bolus Preparation/Mastication: Timely and efficient chewing and mashing Bolus Transport/Lingual Motion: Repetitive/disorganized tongue motion Oral Residue: Residue collection on oral structures Pharyngeal Phase Initiation of Pharyngeal Swallow: Bolus head in pyriforms Soft Palate Elevation: Trace column of contrast/air between soft palate and pharyngeal wall Laryngeal Elevation: Comp. Superior move thyroid cart w/comp. apprx arytenoid cart-epig pet Anterior Hyoid Excursion: Partial anterior movement Epiglottic Movement: Complete inversion Laryngeal Vestibule Closure at Height of Swallow: Incomplete; narrow column of air/contrast in laryngeal vestibule Pharyngeal Stripping Wave: Present - complete Pharyngoesophageal Segment Opening: Complete distension and complete duration; no obstruction of flow Tongue Base Retraction: Narrow column of contrast between tongue base & post. pharyngeal wall Pharyngeal Residue: Trace residue within or on pharyngeal structures Esophageal Phase Esophageal Clearance: Complete clearance Diagnosis/Impression Diagnosis: Mild oral dysphagia R13.11 MBS Impressions: The oral phase is primarily marked by... -Mildly decreased bolus control with premature posterior loss of <1/2 of some thin liquid trials to the pharynx prior to swallow onset. -Repetitive tongue motion for A-P transport of cookie. -Mild oral residue of cookie, which fully cleared with independent initiation of a second swallow. The pharyngeal phase is grossly WNL. Recommendations Diet: Regular Textures and Thin Liquids Compensatory Strategies: Small Bites, Small Sips (By straw per pt preference), Slow Rate and Sitting upright Recommend Repeat Modified Barium Swallow: Yes Comment: Repeat MBSS recommended in 12 months to monitor risk for worsening dysphagia s/p radiation treatment for parotid gland malignancy. Need for Skilled Speech Therapy Services: No Comment: Continue maintenance home exercise programs to maintain optimal swallow function and to address chronic trismus. Education Completed: 1. Described result of evaluation. Status Active ST Patient: Active Contact Information [facility] Speech Therapy:: Effie Templeton M.A. [facility] [employer] Speech-Language Pathologist [facility] [address] [place] [address] [email or web address] [phone]
== END | disposition home or self-care (01) ==
LOC: RAD 12:52
PROVIDERS: PCP Internal Medicine; Referring Provider Student in an Organized Health Care Education/Training Program; Visit Provider Student in an Organized Health Care Education/Training Program
DX: C07 Malignant neoplasm of parotid gland (principal)
CPT/HCPCS: 74230; 92611

== ENCOUNTER 2025-06-17 09:54 | Emergency (ER) | payer MEDICARE, SELFPAY ==
[2024-08-04 08:29] VITALS: BMI 30.9
[2025-06-17 09:54] VITALS: BP 137/69; PULSE 72; RESP 18; TEMP 36.2; O2SAT 98; BMI 30.9
--- NOTE | 2025-06-17 10:07 | ED.VIS.LOWEX ---
HPI History of Present Illness Chief Complaint: Lower Extremity Injury Narrative Narrative: Patient is a 70-year-old female presenting to the emergency department for acute on chronic left knee pain. Patient has a past medical history of hyperlipidemia, parotid gland malignancy, HLD. Patient states that she has had issues with her left knee since she was young. States a few weeks ago she twisted her knee and it caused pain for a few days. States wednesday when she was getting out of the pool she started to have left lateral knee pain again. Tried to rest yesterday and use crutches with continued pain. Has been taking childrens tylenol for pain control at home. [facility] Medical History Health care maintenance Hyperlipidemia Osteopenia Alcohol use Trismus Non-smoker Head and neck cancer Back pain Knee pain Home Medications ?Medication ?Instructions ?Recorded ?Last Taken ?Type calcium 600 mg (as 1 cap PO DAILY 11/22/18 Unknown History carbonate)-vitamin D3 10 mcg (400 unit) capsule (Calcium with Vitamin D3) multivitamin 1 tab PO DAILY 11/22/18 Unknown History Allergy/AdvReac Type Severity Reaction Status Date / Time aspirin AdvReac Mild Hives Verified 06/17/25 09:54 Family History Mother Diabetes Colon cancer Father Leukemia Surgical History S/P colonoscopy H/O plastic surgery History of parotidectomy Social History adopted: No household members: spouse number of children: 3 current occupational status: retired pets and animals: Yes (1,2) pets and animals: cat(s) and dog(s) sexually active: Yes Smoking Status: Never smoker alcohol intake: current alcohol intake frequency: a few times a week Alcohol type: beer and wine details: social, <5 in 1 sitting substance use type: does not use caffeine: Yes (2qd) Type: coffee and tea what type of physical activity do you participate in: walking frequency: 1-2 times per week seatbelt use: always do you feel safe at home: Yes additional social history: 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 ROS ROS ED ROS Narrative see HPI EXAM Physical Exam Narrative Exam Narrative: Vital signs: Reviewed General: Alert and orientedx3. No acute distress HEENT: Head is normocephalic and atraumatic, sinuses nontender, pupils equal round and reactive. Nares are patent. Oropharynx and throat exams normal. Neck: Supple without lymphadenopathy nontender Cardiovascular: Regular rate and rhythm, no murmurs. No rubs or gallops. Normal S1 and S2 Respiratory: Clear to auscultation bilaterally. No wheezes, rales, rhonchi Abdominal: Soft and nontender. Normal bowel sounds. No guarding or rebound. Nonsurgical abdomen Extremities: No tenderness to palpation of the left femur, anterior or posterior knee, medial or lateral knee, tib fib, ankle or foot. DP and PT pulses intact bilaterally. Sensation intact. Able to flex and extend the knee actively without significant pain. No erythema, warmth or swelling of the knee. No posterior calf tenderness to palpation, no swelling of the calf. Negative anterior and posterior drawer test. Negative Tamara test. Soft compartments. Skin: No rash or redness. The rest of the physical exam is unremarkable Const Vital Signs: 06/17/25 09:54 06/17/25 11:03 Temperature 97.1 F L 97.9 F Temperature Source Temporal Pulse Rate 72 84 Respiratory Rate 18 16 Blood Pressure 137/69 H 139/74 H Blood Pressure Mean 91 95 Pulse Ox 98 100 MDM MDM MDM Narrative Medical decision making narrative: Patient is a 70-year-old female presenting to the emergency department for left knee pain. Patient was seen and examined. Vitals are stable. Patient resting bed comfortably no acute distress. Differential includes but is not limited to: Knee sprain, fracture, less likely dislocation, septic joint, gout Based on the history it seems patient has acute on chronic left knee pain after an injury about 3 weeks ago her knee pain worsened again. She is able to ambulate with crutches that she had at home. She is able to actively range the knee with flexion and extension, no erythema, warmth or swelling of the knee. I do not think this is a septic joint. Do not think it is gout. There is no obvious abnormality, no evidence of dislocation. No calf pain or tenderness do not think this is DVT. X-ray ordered to evaluate for any fracture. Knee x-ray reviewed by myself and shows degenerative changes. Radiology read with no acute findings, degenerative osteoarthrosis. Patient and at bedside updated on the negative knee x-rays. I explained that I will give orthopedic follow-up for patient to have an MRI if she continues to have pain and orthopedics thinks this is necessary. She has crutches and she has an Ricardo bandage for comfort at home. Encouraged take Tylenol for pain control. Patient discharged from the Emergency Department. I do not feel that the patient's evaluation reveals any acute reason for admission at this time. I instructed them to either follow-up with their primary care physician or promptly return to the Emergency Department for reevaluation should symptoms worsen or new symptoms develop. I explained what symptoms would indicate the need to return to the emergency department. Shared decision making was used. The patient voiced understanding of the treatment plan and is agreeable with it. Clinical impression Acute on chronic left knee pain History & Record Review Discussion w/independent historian: Patient and Significant other Additional record(s) reviewed:: Prior outpatient record Radiography X-Ray: Read by ED Physician and No Fracture Diagnostic Testing: Clinical Impression(s) from Imaging Studies Knee X-Ray 06/17/25 10:15 IMPRESSION: DEGENERATIVE OSTEOARTHROSIS. NO ACUTE FINDINGS. Reading Location: [facility] Discharge Plan Triage Chief Complaint: Lower Extremity Injury ED Provider: Julia Pollard Dx/Rx/DC Orders Clinical Impression: Pain in left knee Instructions: ED RICE, ED Knee Sprain Ligaments Prescriptions: No Action calcium carbonate-vitamin D3 [Calcium 600 with Vitamin D3] 600 mg(1,500mg) -400 unit capsule 1 cap PO DAILY multivitamin tablet 1 tab PO DAILY Primary Care Provider: Maldonado Dash Referrals: Maldonado Dash MD [Primary Care Provider, Internal Medicine] Karlos Gomes MD [Med Staff - Active Staff, Orthopedics] - As soon as possible Activity Restrictions/Additional Instructions: Please refer to the [facility] instructions on pain and swelling control. Please follow-up with the orthopedic doctor below as soon as possible, call the office tomorrow morning to schedule. Your evaluation in the Emergency Department did not reveal any acute reason for admission. However, I want to emphasize that you may be early in the course of a disease process or illness even if it is not present. For this reason you should follow-up within 24 hours for reevaluation with either your primary care physician or if necessary back here in the Emergency Department. You should return to the Emergency Department immediately if your symptoms worsen or new symptoms develop. Print Language: Emirati Disposition Disposition: Home, Self Care Discharge Date/Time: 06/17/25 11:05
--- NOTE | 2025-06-17 10:15 | RAD_ITS ---
PROCEDURE: KNEE 4 OR MORE VIEWS 06/17/2025 REASON FOR EXAM: PAIN TECHNIQUE: Procedure Code: RADKN Modality: DX Procedure: KNEE 4 OR MORE VIEWS Laterality: Left COMPARISON: None. FINDINGS: BONES: No acute fracture or focal osseous lesion. Small superior patellar enthesophyte. JOINTS: No significant joint effusion. No dislocation. Arthritic changes in the patellofemoral joint. Tricompartmental marginal osteophytes. SOFT TISSUES: The soft tissues are unremarkable. RAD/Knee 4 or More Views IMPRESSION: DEGENERATIVE OSTEOARTHROSIS. NO ACUTE FINDINGS. Reading Location: [id number]
--- OUTSIDE RECORDS SUMMARY | 2025-06-17 10:35 | XMS RPT_ITS | CCD ---
Author Organization [facility] Providers Care Medicinal Plant Picker Name Role Phone AnisaAzul Unavailable Unavailable Breezy Huddleston Unavailable Unavailable Lacho Leavitt Unavailable Unavailable Contreras Smart Unavailable Unavailable Lele Saldana Unavailable Unavailable Jan Romano Unavailable Unavailable Lacho Leavitt Unavailable Unavailable Unavailable Dr. Lacho Leavitt Referring Provider Dr. Herb Saldana Attending Provider Dr. Maldonado Dash Primary Care Provider [phone] Maldonado Dash Unavailable Unavailable Unavailable Dr. Maldonado Dash Primary Care Provider [phone] Dr. Maldonado Dash Referring Provider [phone] Dr. Herb Saldana Attending Provider Reinaldo CORNELL, DREW Ray Attending Provider Dr. Maldonado Dash Primary Care Provider [phone] Dr. Maldonado Dash Referring Provider [phone] Dr. Herb Saldana Attending Provider Ashley, Dr. Jc Linares Referring Unava ilable Ashley, Dr. Jc Linares Attending Unava ilable Dr. Maldonado Dash Primary Care Unavailable Ashley, Dr. Jc Linares Admitting Unava ilable Ashley, Dr. Jc Linares Attending Unava ilable MD CONTRERAS SMART Referring Unavailable Hardy, Dr. Maldonado Johnson Primary Care Unavailable Ashley, Dr. Jc Linares Attending Unava ilable Oleghe, Dr. Maldonado Johnson Primary Care Unavailable Oleghe, Dr. Maldonado Johnson Primary Care Unavailable LAVERTRiki, MD TYREL Conde Attending Unavailable LAVERTU, MD TYREL Conde Referring Unavailable LAVERTU, MD TYREL Conde Attending Unavailable LAVMATY, MD TYREL Conde Referring Unavailable Oleghe, Dr. Maldonado Johnson Primary Care Unavailable Ashley, Dr. Jc Linares Referring Unava ilable Ashley, Dr. Jc Linares Attending Unava ilable Oleghe, Dr. Maldonado Johnson Primary Care Unavailable Thuener, Dr. Breezy Lopez Attending Unavaila ble Thuener, Dr. Breezy Lopez Referring Unavaila ble Oleghe, Dr. Maldonado Johnson Primary Care Unavailable Tree, Dr. Lacho Carreno Primary Care Unava ilable LAVMATY, MD TYREL Conde Attending Unavailable LAVERTU, MD TYREL Conde Referring Unavailable LAVERTRiki, MD TYREL Conde Attending Unavailable Oleghe, Dr. Maldonado Johnson Primary Care Unavailable Ashley, Dr. Jc Linares Referring Unava ilable Tree, Dr. Lacho Carreno Primary Care Unava ilable Ashley, Dr. Jc Linares Attending Unava ilable Oleeboniee Maldonado NEGRON Primary Care Prov ider [facility] Karlos A Unavailable Jan Romano MD Unavailable Ronny Mcguire MD Unavailable [facility], Karlos A Unavailable Maldonado Dash MD Primary Care Prov ider [facility], Karlos A Unavailable [phone] Jan Romano MD Unavailable Ronny Mcguire MD Unavailable TYREL CHRISTINA Referring Unavailable OLEGHE, EFEWONGBE HENRY Primary Care Unav ailable TYREL CHRISTINA Attending Unavailable OLEGHE, EFEWONGBE HENRY Primary Care Unav ailable Hardy NEGRON, Dr. Okeefe Primary Care Provider Nick NEGRON, Dr. Ferrell Attending Provider Hardy NEGRON, Dr. Okeefe Referring Provider [phone] Alise CATTLE DEALER-CSimran Attending Provider [phone] Nick NEGRON, Dr. Ferrell Attending Provider Hardy NEGRON, Dr. Okeefe Attending Provider [phone] Hardy NEGRON, Dr. Okeefe Primary Care Physician Nick NEGRON, Dr. Ferrell Attending Physician Alise CATTLE DEALER-C, Simran Attending Physician Hardy NEGRON, Dr. Okeefe Attending Physician [phone] Dr. Herb Saldana DO Attending Physician Dr. Herb Saldana DO Referring Provider Herb Saldana Referring Unavailable Herb Saldana Attending Unavailable Oleghe, Efewongbe Primary Care Unavailable Oleghe, Efewongbe Primary Care Unavailable Oleghe, Efewongbe Referring Unavailable Maikel Martin Attending Unavailable Flor Najera Attending Unavailable Oleghe, Efewongbe Primary Care Unavailable Oleghe, Efewongbe Referring Unavailable Herb Saldana Attending Unavailable Oleghe, Efewongbe Primary Care Unavailable Oleghe, Efewongbe Referring Unavailable Oleghe, Efewongbe Attending Unavailable Oleghe, Efewongbe Primary Care Unavailable Oleghe, Efewongbe Referring Unavailable Oleghe, Efewongbe Primary Care Unavailable Simran Carrero Attending Unavailable Oleghe, Efewongbe Primary Care Unavailable Flor Najera Referring Unavailable Flor Najera Attending Unavailable Oleghe, Efewongbe Referring Unavailable Oleghe, Efewongbe Attending Unavailable Oleghe, Efewongbe Primary Care Unavailable Flor Najera Attending Unavailable Maldonado Dash Primary Care Unavailable Flor Najera Referring Unavailable Allergies Allergy Classification Reported Allergen(s) Allergy Type Date of Onset Reaction(s) Facility Aspirin (4 sources) Aspirin; Translations: [aspirin] Drug Allergy [facility]Otolaryngolo [facility] Work Phone: (20 sources) Aspirin; Translations: [aspirin] Drug Allergy 12-22-2021 [facility] (5 sources) Azithromycin; Translations: [AZITHROMYCIN] Drug Allergy 07-21-2006 Unknown [facility] Medications Current Medications Medication Drug Class(es) Dates Sig (Normalized) Sig (Original) Calcium (20 sources) Phosphate Binder, Calcium CALCIUM ORAL Take by mouth. Active CALCIUM ORAL Neptali e by mouth. 0 Active Calcium TABS Alvaro ntity: 0 Refills: 0 Ordered: 15-Nov-2020 DO Active Calcium TABS Ref ills: 0 Active calcium carbonate 1500 mg / cholecalciferol 0.01 mg oral capsule (7 sources) Vitamin D Start: 11-22-2018 Start: 11-22-2018 take 1 capsule by mo [facility] once daily Calcium Carbonate-Vitamin D3 (Calcium 600 With Vitamin D3) 600 mg(1,500mg) -400 unit capsule Active 1 CAP PO DAILY November 22, 2018 12:00am Multivitamin preparation (4 sources) Start: 11-22-2018 take 1 tablet by mouth once daily Multivitamin Active 1 TABLET PO DAILY November 22, 2018 10:36am Start: 11-22-2018 take 1 tablet by ele once daily Multivitamin Active 1 TABLET PO DAILY November 22, 2018 12:00am Start: 11-22-2018 take 1 tablet by ele th once daily Multivitamin Active 1 TABLET PO DAILY November 22, 2018 1:00am Multivitamin tablet (3 sources) Start: 11-22-2018 Start: 11-22-2018 Multivitamin t ablet Active 1 {tbl} PO DAILY November 22, 2018 1:00am mv-min/iron/folic/calcium/vi tK (WOMEN'S MULTIVITAMIN ORAL) (4 sources) mv-min/iron/foli c/calcium/vitK (WOMEN'S MULTIVITAMIN ORAL) Take by mouth. Active mv-min/iron/foli c/calcium/vitK (WOMEN'S MULTIVITAMIN ORAL) Take by mouth. 0 Active Completed/Discontinued Medications Medication Drug Class(es) Dates Sig (Normalized) Sig (Original) Multivitamin Women TABS (1 source) Vitamin C Multivitamin Wom en TABS Refills: 0 Active chlorhexidine gluconate 40 mg/ml medicated liquid soap (10 sources) Start: 03-02-2022 End: 03-27-2022 Hibiclens 4 % External Liquid USE DIRECTED. Quantity: 1 Refills: 0 Ordered: 02-Mar-2022 Giselle Calloway Start : 02-Mar-2022 End : 27-Mar-2022 Complete Start: 03-02-2022 End: 03-27-2022 take 15 mL by mouth in the morning Chlorhexidine Gluconate 0.12 % Mouth/Throat Solution RINSE MOUTH WITH 15ML (1 CAPFUL) FOR 30 SECONDS AM AND PM AFTER TOOTHBRUSHING. EXPECTORATE AFTER RINSING, DO NOT SWALLOW Quantity: 473 Refills: 0 Ordered: 02-Mar-2022 Giselle Calloway Start : 02-Mar-2022 End : 27-Mar-2022 Complete Multivitamin Women TABS (20 sources) Multivitamin Wom en TABS Quantity: 0 Refills: 0 Ordered: 15-Nov-2020 DO Active mupirocin 0.02 mg/mg topical ointment (2 sources) RNA Synthetase Inhibitor Antibacterial Start: 11-15-2020 Mupirocin 2 % External Ointment APPLY SPARINGLY TO AFFECTED AREA(S) TWICE DAILY Quantity: 1 Refills: 0 Ordered: 15-Nov-2020 Azul Dillard Start : 15-Nov-2020 Active Start: 11-15-2020 Mupirocin 2 % External Ointment APPLY SPARINGLY TO AFFECTED AREA(S) TWICE DAILY Quantity: 1 Refills: 0 Azul Dillard Start : 15-Nov-2020 Active 15 GM Tube oxyCODONE hydrochloride 5 mg oral tablet (3 sources) Opioid Agonist Start: 03-10-2022 End: 03-27-2022 oxyCODONE HCl - 5 MG Oral Tablet Quantity: 28 Refills: 0 Ordered: 10-Mar-2022 DO Start : 10-Mar-2022 End : 27-Mar-2022 Complete triamcinolone acetonide 40 mg/ml injectable suspension (1 source) Corticosteroid Start: 02-14-2018 End: 02-14-2018 inject 40 mg by intramuscular injection once Kenalog (triamcinolone acetonide) 10 mg/mL suspension for injection Discontinued 40 MG IM ONCE 1 February 14, 2018 2:02pm February 14, 2018 2:29pm Problems Active Problems Problem Classification Problem Date Documented Date Episodic/Chronic Allergic reactions (5 sources) Contact dermatitis; Translations: [Unspecified contact dermatitis, unspecified cause] 05-03-2025 Episodic Cancer of head and neck (20 sources) Malignant tumor of parotid gland; Translations: [Malignant neoplasm of parotid gland] Onset: 07-21-2022 Chronic Disorders of lipid metabolism (5 sources) Hyperlipidemia; Translations: [Hyperlipidemia, unspecified] Onset: 06-13-2025 07-02-2023 Chronic Menopausal disorders (2 sources) Postmenopausal atrophic vaginitis; Translations: [Postmenopausal atrophic vaginitis] Chronic Other bone disease and musculoskeletal deformities (6 sources) Osteopenia; Translations: [Other specified disorders of bone density and structure, unspecified site] 08-10-2022 Episodic Other bone disease and musculoskeletal deformities (1 source) Other specified disorders of bone density and structure, unspecified site; Translations: [Other specified disorders of bone density and structure, unspecified site] Onset: 06-04-2025 Episodic Other congenital anomalies (14 sources) Facial asymmetry; 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, face, and jaw] Onset: 06-20-2023 06-20-2023 Chronic Other ear and sense organ disorders (20 sources) Impacted cerumen; Translations: [Impacted cerumen] Episodic Other hereditary and degenerative nervous system conditions (14 sources) Blepharospasm; 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] Onset: 06-20-2023 06-20-2023 Chronic Other hereditary and degenerative nervous system conditions (1 source) Blepharospasm; 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] Onset: 03-02-2022 Chronic Other injuries and conditions due to external causes (1 source) Radiation injury; Translations: [Radiation sickness, unspecified, sequela] 01-18-2024 Episodic Other nervous system disorders (10 sources) Seventh cranial nerve finding; Translations: [Other facial nerve disorders] Episodic Other upper respiratory infections (3 sources) Nasopharyngitis; Translations: [Acute nasopharyngitis [common cold]] 08-04-2024 Episodic Residual codes; unclassified (20 sources) History finding; Translations: [Other specified conditions influencing health status] Episodic Residual codes; unclassified (7 sources) Family history of cancer of colon; Translations: [Family history of malignant neoplasm of digestive organs] 12-18-2020 Episodic Residual codes; unclassified (5 sources) History of cosmetic plastic surgery; Translations: [Other specified postprocedural states] 07-20-2022 Episodic Comment on above: Facial surgery follo wing tumor removal. Residual codes; unclassified (3 sources) Viral syndrome; Translations: [Other general symptoms and signs] 08-04-2024 Episodic Residual codes; unclassified (3 sources) Postmenopausal state; Translations: [Asymptomatic menopausal state] 08-02-2024 Episodic Thyroid disorders (1 source) Disorder of thyroid gland; Translations: [Other specified disorders of thyroid] 01-18-2024 Episodic Past or Other Problems Problem Classification Problem Date Documented Da te Episodic/Chronic Cancer; other and unspecified primary (1 source) Personal history of malignant neoplasm of other organs and systems; Translations: [Personal history of malignant neoplasm of organs and systems] Onset: 07-21-2022 Episodic Neoplasms of unspecified nature or uncertain behavior (20 sources) Neoplasm of parotid gland; Translations: [Neoplasm of unspecified nature of digestive system] Onset: 06-20-2023 06-20-2023 Episodic Other connective tissue disease (20 sources) Trismus; Translations: [Abnormal involuntary movements] Onset: 06-20-2023 06-20-2023 Episodic Other ear and sense organ disorders (6 sources) Impacted cerumen in left ear; Translations: [Impacted cerumen, left ear] Onset: 06-20-2023 06-20-2023 Episodic Other eye disorders (14 sources) Disorder of eyelid; Translations: [Lid retraction or lag] Onset: 06-20-2023 06-20-2023 Episodic Other eye disorders (15 sources) Ptosis of left eyebrow; Translations: [Other specified hypertrophic and atrophic conditions of skin] Onset: 03-10-2022 Episodic Other eye disorders (1 source) Brow ptosis, left; Translations: [Brow ptosis, left] Onset: 03-10-2022 Episodic Other injuries and conditions due to external causes (15 sources) Adverse effect of radiation therapy; Translations: [Effects of radiation, unspecified] Onset: 06-20-2023 06-20-2023 Episodic Other injuries and conditions due to external causes (2 sources) Radiation sickness, unspecified, initial encounter; Translations: [Effects of radiation, unspecified] Onset: 06-20-2023 06-20-2023 Episodic Other nervous system disorders (20 sources) Disorder of accessory nerve; Translations: [Disorders of accessory [11th] nerve] Onset: 06-20-2023 06-20-2023 Episodic Other nervous system disorders (20 sources) Facial palsy; 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] Onset: 06-20-2023 06-20-2023 Episodic Other nervous system disorders (14 sources) Synkinesis; Translations: [Abnormal involuntary movements] Onset: 06-20-2023 06-20-2023 Episodic Other nervous system disorders (4 sources) Jurado's palsy; 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] Onset: 03-10-2022 Episodic Other nervous system disorders (2 sources) Disorder of facial nerve, unspecified; Translations: [Disorder of facial nerve, unspecified] Onset: 03-10-2022 Episodic Other nervous system disorders (4 sources) Seventh cranial nerve abnormal; Translations: [Disorder of facial nerve, unspecified] Onset: 06-20-2023 06-20-2023 Episodic Other screening for suspected conditions (not mental disorders or infectious disease) (7 sources) Suspected malignancy; Translations: [Observation for suspected malignant neoplasm] Onset: 07-21-2022 Episodic Residual codes; unclassified (1 source) Asymptomatic menopausal state; Translations: [Asymptomatic menopausal state] Onset: 08-28-2024 Episodic Residual codes; unclassified (1 source) Other general symptoms and signs; Translations: [Other general symptoms and signs] Onset: 08-04-2024 Episodic Unclassified (1 source) History finding; Translations: [History of No pertinent past surgical history] Unclassified (20 sources) History of No significant past medical history; Translations: [No significant past medical history] Unclassified (4 sources) Onset: 07-20-2023 07-20-2023 NEGATED: Highlighted row has not occurred!Residual codes; unclassified (5 sources) Disease Episodic Results Test Name Value Interpretation Reference Range Facility Modified Barium Swallow Stud [facility] 06-11-2025 Modified Barium Swallow Study [facility] Speech Pathology [address] [place] [address] Modified Barium Swallow Study MR#: [id number] Acct: [id number] Name: KYMBERLY PICHARDO Rep #: [id number] : [id number] 70 From: Effie Templeton M.A., [facility]NA[facility] Modified Barium Swallow Patient Information Study Date: 06/11/25 Study Time: 13:00 Direct Billable Minutes: 60 Total Minutes procedure reportin Diagnosis: Primary parotid gland malignancy C07 Referring Physician: Herb Saldana Reason for Referral: Objectively assess swallow function, risk for aspiration, and determine recommendations for least restrictive diet textures and compensatory strategies to improve safety of swallow. 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 From 01/06/2021 ??? 02/19/2021 she received adjuvant radiation therapy. 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 Pt also participated in facial rehabilitation for training in masseter-driven smile. Several MBSS have been completed during and following treatment to monitor risk for worsening dysphagia (01/22/2021, 05/19/2021, 05/26/2022, 04/12/2023, 04/26/2024). Most recent MBSS 04/26/2024 revealed, Mild oral dysphagia...Diet: Regular Textures and Thin Liquids; Comment: R sided bolus placement; Compensatory Strategies: Small Bites, Small Sips, Sips by straw only (Patient preference), Slow Rate and Sitting upright. She is planned for this repeat MBSS to monitor risk for aspiration and worsening dysphagia s/p radiation treatment for hx of HNC. Of note, pt denies current difficulty swallowing Regular textures / Thin liquids. She denies changes in taste, odynophagia, or xerostomia. She reports continued use of jaw opening device and participation in weekly massage to maintain trismus. Current Diet Ordered: Regular textures / Thin liquids Dentition: WNL and Natural Teeth Mental Status: WNL Respiratory Status: Oxygenating on Room Air Penetration-Aspiration Scale Penetration-Aspiration Scale: OBJECTIVE ASSESSMENT OF SWALLOW FUNCTION (QUANTITATIVE ??? PER TRIAL): PENETRATION / ASPIRATION SCALE (LAYTON): 1 = does not enter airway 2 = enters airway/above vocal folds/ejected 3 = enters airway/above vocal folds/not ejected 4 = enters airway/contacts vocal folds/ejected 5 = enters airway/contacts vocal folds/not ejected 6 = enters airway/below vocal folds/ejected 7 = enters airway/below vocal folds/not ejected despite effort 8 = enters airway/below vocal folds/no effort VIDEOFLOROSCOPIC SCALE SCORE (LAYTON): Grade I = aspiration of material that has penetrated into the laryngeal vestibule, intact cough reflex Grade II = aspiration < 10 % of the bolus, intact cough reflex Grade III = aspiration of < 10 % of the bolus, reduced cough reflex or aspiration of > 10 % of the bolus, intact cough reflex Grade IV = aspiration of > 10 % of the bolus, reduced cough reflex Penetration-Aspiration Scale Score Thin Liquid via teaspoon: Result: 1= does not enter airway Thin Liquid via teaspoon Trial 2: Result: 1= does not enter airway Thin Liquid via small single sip: cup: Result: 2= enter airway/above vocal folds/ejected Mabel Thick Liquid via small single sip: cup: Result: 1= does not enter airway Pudding via teaspoon: Result: 1= does not enter airway Comment: Esophageal screen - Complete clearance. /2 Cookie: Result: 1= does not enter airway Thin Liquid via sequential sips:straw: Result: 2= enter airway/above vocal folds/ejected Oral Phase Labial Seal: No Labial Escape Tongue Control During Bolus Hold: Posterior escape of less than half of bolus Bolus Preparation/Mastication : Timely and efficient chewing and mashing Bolus Transport/Lingual Motion: Repetitive/disorganized tongue motion Oral Residue: Residue collection on oral structures Pharyngeal Phase Initiation of Pharyngeal Swallow: Bolus head in pyriforms Soft Palate Elevation: Trace column of contrast/air between soft palate and pharyngeal wall Laryngeal Elevation: Comp. Superior move thyroid cart w/comp. apprx arytenoid cart-epig pet Anterior Hyoid Excursion: Partial anterior movement Epiglottic Movement: Complete inversion Laryngeal Vestibule Closure at Height of Swallow: Incomplete; narrow column of air/contrast in laryngeal vestibule Pharyngeal Stripping Wave: Present - complete Pharyngoesophageal Segment Opening: Complete distension and complete duration; no obstruction of flow Tongue Base Retraction: Narrow column of contrast between tongue base (more content not included)... Normal [facility] Absolute lymphocyte countOrd ered By: Maldonado Dash on 06-04-2025 Lymphocytes Auto (Unsp spec) [#/Vol] 1.06 10*3/uL 0.83-4.51 [facility] Absolute neutrophil countOrd ered By: mariajoserichfieldjohnny Dash on 06-04-2025 Neutrophils (Bld) [#/Vol] 2.3 10*3/uL 2.0-7.7 [facility] Anion gap in Serum or Plasma Ordered By: Maldonado Dash on 06-04-2025 Anion gap [Moles/Vol] 12 mmol/L 5-15 [facility] Automated lymphocyte count a s percentage of total leukocytesOrdered By: josé miguel Dash on 06-04-2025 Lymphocytes/100 WBC Auto (Unsp spec) 25.1 % 19-41 [facility] BUN/creatinine ratioOrdered By: mariajoserichfieldjohnny Dash on 06-04-2025 Urea nitrogen/Creatinine [Mass ratio] 15.5 mg/mg 10-20 [facility] Basophil percentageOrdered B y: Maldonado Dash on 06-04-2025 Basophils/100 WBC (Bld) 0.7 % 0-1 [facility] Bilirubin, totalOrdered By: mariajoserichfieldjohnny Dash on 06-04-2025 Bilirubin [Mass/Vol] 0.64 mg/dL 0.00-1.30 [facility] CBC W/Diff, Automatedon Absolute Lymph 1.06 X10 3/uL Normal 0.83-4.51 [facility] Comment on above: Performed By: #### L 506.1001, L500.4100, L100.0100, L500.4050 #### [facility] Laboratory [address] [place], [address] Absolute Neut 2.3 X10 3/uL Normal 2.0-7.7 [facility] Comment on above: Performed By: #### L 506.1001, L500.4100, L100.0100, L500.4050 #### [facility] [address] [place], [address] Basophils/100 WBC (Bld) 0.7 % Normal 0-1 [facility] Comment on above: Performed By: #### L 506.1001, L500.4100, L100.0100, L500.4050 #### [facility] [address] [place], [address] Eosinophils/100 WBC (Bld) 8.0 % High 0-5 [facility] Comment on above: Performed By: #### L 506.1001, L500.4100, L100.0100, L500.4050 #### [facility] [address] [place], [address] Erythrocyte distribution width (RBC) [Ratio] 13.5 % Normal 11.6-14.6 [facility] Comment on above: Performed By: #### L 506.1001, L500.4100, L100.0100, L500.4050 #### [facility] [address] [place], [address] Hematocrit (Bld) [Volume fraction] 38.7 % Normal 37-47 [facility] Comment on above: Performed By: #### L 506.1001, L500.4100, L100.0100, L500.4050 #### [facility] [address] [place], [address] Hemoglobin (Bld) [Mass/Vol] 12.7 g/dL Normal 12.0-15.0 [facility] Comment on above: Performed By: #### L 506.1001, L500.4100, L100.0100, L500.4050 #### [facility] [address] [place], [address] IG% 0.500 Normal 0.0-0.9 [facility] Comment on above: Result Comment: IG% - Immature Granulocytes (promyelocytes, myelocytes and metamyelocytes) > 1% indicates that a LEFT SHIFT is Present. Performed By: #### L 506.1001, L500.4100, L100.0100, L500.4050 #### [facility] [address] [place], [address] Lymphocytes/100 WBC (Bld) 25.1 % Normal 19-41 [facility] Comment on above: Performed By: #### L 506.1001, L500.4100, L100.0100, L500.4050 #### [facility] [address] [place], [address] MCH (RBC) [Entitic mass] 30.1 pg Normal 27.0-32.0 [facility] Comment on above: Performed By: #### L 506.1001, L500.4100, L100.0100, L500.4050 #### [facility] [address] [place], [address] MCHC (RBC) [Mass/Vol] 32.8 g/dL Normal 32-36 [facility] Comment on above: Performed By: #### L 506.1001, L500.4100, L100.0100, L500.4050 #### [facility] [address] [place], [address] MCV (RBC) [Entitic vol] 91.7 fL Normal 81-99 [facility] Comment on above: Performed By: #### L 506.1001, L500.4100, L100.0100, L500.4050 #### [facility] [address] [place], [address] Monocytes/100 WBC (Bld) 10.4 % High 0-10 [facility] Comment on above: Performed By: #### L 506.1001, L500.4100, L100.0100, L500.4050 #### [facility] [address] [place], [address] Neutrophils/100 WBC (Bld) 55.3 % Normal 47-70 [facility] Comment on above: Performed By: #### L 506.1001, L500.4100, L100.0100, L500.4050 #### [facility] [address] [place], [address] Nucleated RBC (Bld) [#/Vol] 0 10*3/uL Normal 0-5 [facility] Comment on above: Performed By: #### L 506.1001, L500.4100, L100.0100, L500.4050 #### [facility] [address] [place], [address] Platelet mean volume (Bld) [Entitic vol] 10.4 fL Normal 6.2-12.0 [facility] Comment on above: Performed By: #### L 506.1001, L500.4100, L100.0100, L500.4050 #### [facility] [address] [place], [address] Platelets (Bld) [#/Vol] 283 10*3/uL Normal 150-450 [facility] Comment on above: Performed By: #### L 506.1001, L500.4100, L100.0100, L500.4050 #### [facility] [address] [place], [address] RBC (Bld) [#/Vol] 4.22 10*6/uL Normal 4.2-5.4 [facility] Comment on above: Performed By: #### L 506.1001, L500.4100, L100.0100, L500.4050 #### [facility] [address] [place], [address] RDW SD 45.6 fl High 35.1-43.9 [facility] Comment on above: Performed By: #### L 506.1001, L500.4100, L100.0100, L500.4050 #### [facility] [address] [place], [address] WBC (Bld) [#/Vol] 4.2 10*3/uL Low 4.4-11.0 [facility] Comment on above: Performed By: #### L 506.1001, L500.4100, L100.0100, L500.4050 #### [facility] [address] [place], [address] Calculated very low density lipoprotein (VLDL) cholesterol measurementOrdered By: Maldonado Dash on 06-04-2025 Calculated very low density lipoprotein (VLDL) cholesterol measurement 15 mg/dL 5-40 [facility] Carbon dioxide, total [Moles /volume] in Central venous bloodOrdered By: Maldonado Dash on 06-04-2025 CO2 [Moles/Vol] 22.0 mmol/L 21.0-32.0 [facility] Chloride assayOrdered By: Joceline Dash on 06-04-2025 Chloride [Moles/Vol] 107 mmol/L 98-108 [facility] Comprehensive Metabolic Prof ilon 06-04-2025 Albumin [Mass/Vol] 4.1 g/dL Normal 3.4-4.8 [facility] Comment on above: Performed By: #### L 506.1001, L500.4100, L100.0100, L500.4050 #### [facility] [address] [place], [address] Albumin/Globulin [Mass ratio] 1.4 {ratio} Normal 0.9-2.4 [facility] Comment on above: Performed By: #### L 506.1001, L500.4100, L100.0100, L500.4050 #### [facility] [address] [place], [address] ALK PHOS 81 U/L Normal 35-104 [facility] Comment on above: Performed By: #### L 506.1001, L500.4100, L100.0100, L500.4050 #### [facility] [address] [place], [address] ALT [Catalytic activity/Vol] 13 U/L Normal <=34 [facility] Comment on above: Performed By: #### L 506.1001, L500.4100, L100.0100, L500.4050 #### [facility] [address] [place], [address] AST [Catalytic activity/Vol] 14 U/L Normal <=31 [facility] Comment on above: Performed By: #### L 506.1001, L500.4100, L100.0100, L500.4050 #### [facility] [address] [place], [address] Bilirubin [Mass/Vol] 0.64 mg/dL Normal 0.00-1.30 [facility] Comment on above: Performed By: #### L 506.1001, L500.4100, L100.0100, L500.4050 #### [facility] [address] [place], [address] BUN/CRE 15.5 RATIO Normal 10-20 [facility] Comment on above: Performed By: #### L 506.1001, L500.4100, L100.0100, L500.4050 #### [facility] [address] [place], [address] Calcium [Mass/Vol] 9.5 mg/dL Normal 7.6-11.0 [facility] Comment on above: Performed By: #### L 506.1001, L500.4100, L100.0100, L500.4050 #### [facility] [address] [place], [address] Chloride [Moles/Vol] 107 mmol/L Normal 98-108 [facility] Comment on above: Performed By: #### L 506.1001, L500.4100, L100.0100, L500.4050 #### [facility] [address] [place], [address] CO2 [Moles/Vol] 22.0 mmol/L Normal 21.0-32.0 [facility] Comment on above: Performed By: #### L 506.1001, L500.4100, L100.0100, L500.4050 #### [facility] [address] [place], [address] Creatinine [Mass/Vol] 0.97 mg/dL Normal 0.70-1.20 [facility] Comment on above: Performed By: #### L 506.1001, L500.4100, L100.0100, L500.4050 #### [facility] [address] [place], [address] GAP 12 Normal 5-15 [facility] Comment on above: Performed By: #### L 506.1001, L500.4100, L100.0100, L500.4050 #### [facility] [address] [place], [address] GFR/1.73 sq M.predicted among non-blacks MDRD (S/P/Bld) [Vol rate/Area] 64 mL/min/{1.73_m2} Normal >60 [facility] Comment on above: Result Comment: mL/m in/1.73m2 CKD-EPI Creatinine Equation (2020) Performed By: #### L 506.1001, L500.4100, L100.0100, L500.4050 #### [facility] [address] [place], [address] Globulin (S) [Mass/Vol] 2.8 g/dL Normal 2.2-4.2 [facility] Comment on above: Performed By: #### L 506.1001, L500.4100, L100.0100, L500.4050 #### [facility] [address] [place], [address] Glucose [Mass/Vol] 108 mg/dL High 70-99 [facility] Comment on above: Performed By: #### L 506.1001, L500.4100, L100.0100, L500.4050 #### [facility] [address] [place], [address] Potassium [Moles/Vol] 4.0 mmol/L Normal 3.3-5.1 [facility] Comment on above: Performed By: #### L 506.1001, L500.4100, L100.0100, L500.4050 #### [facility] [address] [place], [address] Sodium [Moles/Vol] 140 mmol/L Normal 133-145 [facility] Comment on above: Performed By: #### L 506.1001, L500.4100, L100.0100, L500.4050 #### [facility] [address] [place], [address] T PROT 6.9 g/dL Normal 5.9-8.4 [facility] Comment on above: Performed By: #### L 506.1001, L500.4100, L100.0100, L500.4050 #### [facility] [address] [place], [address] Urea nitrogen [Mass/Vol] 15 mg/dL Normal 4-19 [facility] Comment on above: Performed By: #### L 506.1001, L500.4100, L100.0100, L500.4050 #### [facility] [address] [place], [address] Eosinophil percentageOrdered By: josé miguel Dash on 06-04-2025 Eosinophils/100 WBC (Bld) 8.0 % High 0-5 [facility] Erythrocyte distribution wid th ratioOrdered By: [facility] Mikegonzalo on 06-04-2025 Erythrocyte distribution width (RBC) [Ratio] 13.5 % 11.6-14.6 [facility] Erythrocyte distribution wid th standard deviationOrdered By: [facility] Center[facility]ny Dash on 06-04-2025 Erythrocyte distribution width (RBC) [Ratio] 45.6 fl High 35.1-43.9 [facility] Glomerular filtration rate ( GFR) estimation/1.73 sq m using serum, plasma, or whole bOrdered By: mariajoserichfieldjohnny Dash on 06-04-2025 GFR/1.73 sq M.predicted among non-blacks MDRD (S/P/Bld) [Vol rate/Area] 64 mL/min/{1.73_m2} >60 [facility] Comment on above: mL/min/1.73m2 CKD-EP I Creatinine Equation (2020) Hematocrit Auto (Bld) [Volum e fraction]Ordered By: mariajoserichfieldjohnny Mckeongonzalo on 06-04-2025 Hematocrit (Bld) [Volume fraction] 38.7 % 37-47 [facility] Hemoglobin measurementOrdere d By: mariajoserichfieldjohnny Dash on 06-04-2025 Hemoglobin (Bld) [Mass/Vol] 12.7 g/dL 12.0-15.0 [facility] Immature granulocytes/100 WB C Auto (Bld)Ordered By: Maldonado Dash on 06-04-2025 Immature granulocytes/100 WBC (Bld) 0.500 % 0.0-0.9 [facility] Comment on above: IG% - Immature Granu locytes (promyelocytes, myelocytes and metamyelocytes) > 1% indicates that a LEFT SHIFT is Present. Internal Medicine Office Vis itoamaya 06-04-2025 Internal Medicine Office Visit [facility] [address] [place] [address] [place] [address] OFFICE VISIT Date of Service: 06/04/25 MR#: [id number] Acct: [id number] Name: KYMBERLY PICHARDO Rep #: [id number] : 1955 Provider: Dr. Maldonado canales MD Age/Sex: 70/F Location: [facility] [place] Status: Signed Intake Vital Signs 05/03/25 16:11 06/04/25 08:11 Height 5 ft 10 in 5 ft 10 in Weight: 216 lb 210 lb BMI 30.9 30.1 BP 118/74 118/70 Blood Pressure Location Lt brachial Lt brachial Position Sitting Sitting Respiration 14 16 Pulse 72 64 Pulse Source Monitor Monitor Temp 97.9 F 97.1 F L Temp Source Temporal Temporal Pulse Oximetry (%) 98 96 Oxygen Delivery Method room air room air Intake Visit Reasons: YEARLY Chief Complaint: Follow-up chronic conditions/yearly Senior Software Analyst Required: No Is patient in pain?: No Allergies aspirin Adverse Reaction (Mild, Verified 06/04/25 08:03) Hives Medications ???Medication ???Instructions ???Recorded ???Confirmed ???Type calcium 600 mg (as 1 cap PO DAILY 11/22/18 06/04/25 H istory carbonate)-vitamin D3 10 mcg (400 unit) capsule (Calcium with Vitamin D3) multivitamin 1 tab PO DAILY 11/22/18 06/04/25 H istory Have you fallen in the past year?: No PFSH Medical History (Updated 06/04/25 @ 16:[address] Maldonado Dash MD) Health care maintenance Hyperlipidemia Osteopenia Alcohol use Trismus Non-smoker Head and neck cancer Back pain Knee pain Surgical History (Updated 06/04/25 @ 08:08 by Madelin Rosen MA) S/P colonoscopy H/O plastic surgery History of parotidectomy Family History Mother Diabetes Colon cancer Father Leukemia Social History (Updated 06/04/25 @ 08:10 by Madelin Rosen MA) adopted: No household members: spouse number of children: 3 current occupational status: retired pets and animals: Yes (1,2) pets and animals: cat(s) and dog(s) sexually active: Yes Smoking Status: Never smoker alcohol intake: current alcohol intake frequency: a few times a week Alcohol type: beer and wine details: social, <5 in 1 sitting substance use type: does not use caffeine: Yes (2qd) Type: coffee and tea what type of physical activity do you participate in: walking frequency: 1-2 times per week seatbelt use: always do you feel safe at home: Yes 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 HPI HPI Chief Complaint: Follow-up chronic conditions/yearly Details: KYMBERLY PICHARDO, is a 70-year-old female presenting for her yearly visit/follow-up. Her last physical examination was approximately two years ago. She reports a history of encountering poison bob, for which she received appropriate treatment, and has since completely resolved. Additionally, the patient has been diagnosed with osteopenia, with a moderate fracture risk, identified during a bone density scan in July of the previous year. There were no new complaints relevant to this condition. Prior history of elevated cholesterol, currently not on medication for this. She has had a mamogram last June, with no noted changes in her family medical history. Furthermore, she received a pneumonia vaccine in 2021 and a shingles vaccine previously as well. Her last colonoscopy was completed in 2020, and she reports no current gastrointestinal symptoms. Attestation: Documentation on this patient encounter was supported using ambient scribe technology/ voice AI technology. The patient consented to recording for the purpose of documenting the encounter. Provider reviewed content of the generated note prior to signature. ROS Const Constitutional: No body ache, chills, excessive sweating, fatigue, fever(s), frequent falls, headache(s), snoring, weakness, sleep problems or change in appetite Eyes Eyes: No blurry vision, change in vision, vision loss, dry eyes, eye pain or Light sensitivity ENT ENT: No abnormal hearing, ear or mastoid pain, tinnitus, nasal congestion, headache(s), neck pain or sore throat Resp Respiratory: No cough, excessive phlegm production, hemoptysis, shortness of breath, snoring or wheezing Cardio Cardiology: No chest pain at rest, chest pain with exertion, excessive sweating, shortness of breath, dyspnea on exertion, lightheadedness, orthopnea or palpitations Gastro GI: No abdominal pain, change in bowel habits, constipation, cramping, diarrhea, nausea/dyspepsia or vomiting Genitourinary-Female: No burning urination, painful urination, urinary incontinence, urinary frequency, abnormal vaginal bleeding or pelvic pain Musc Musculoskeletal: No abnormal gait, joint pain, back pain, limited range of motion, neck pain or numbness Skin Skin: No dry skin, redness, lesions, i (more content not included)... Normal [facility] LDL calc ser/plasOrdered By: Maldonado Dash on 06-04-2025 Cholesterol in LDL [Mass/Vol] 125 mg/dL [facility] Comment on above: Fwnvagbhxf=238-219 m g/dL & Higher Ewbf=950 mg/dL or greaterFriedwald Equation for LDL-C Laboratory - Chemistry and C hemistry - challengeOrdered By: Maldonado Dash on 06-04-2025 AST [Catalytic activity/Vol] 14 U/L <32 [facility] Lipid Profileon 06-04-2025 CHOL:HDL 2.60 Normal [facility] Comment on above: Performed By: #### L 506.1001, L500.4100, L100.0100, L500.4050 #### [facility] [address] [place], [place], [id number] Cholesterol [Mass/Vol] 228 mg/dL High <=200 [facility] Comment on above: Result Comment: Chol esterol level, Desirable <200 mg/dL Borderline high cholesterol 200-239 mg/dL High cholesterol >=240 mg/dL Recommendations of the NCEP Adult Treatment Panel for the following risk-cutoff thresholds for the [place] population. Performed By: #### L 506.1001, L500.4100, L100.0100, L500.4050 #### [facility] [address] [place], [place], [address] Cholesterol in HDL [Mass/Vol] 88 mg/dL Normal [facility] Comment on above: Result Comment: [place]ow onal Cholesterol Education Program (NCEP) guidelines: <40 mg/dL: Low HDL-cholesterol (major risk factor for CHD) >= 60 mg/dL: High HDL-cholesterol (negative risk factor for CHD) HDL-cholesterol is affected by a number of factors, e.g. smoking, exercise, hormones, sex and age. Performed By: #### L 506.1001, L500.4100, L100.0100, L500.4050 #### [facility] [address] [place], [address] Cholesterol in LDL [Mass/Vol] 125 mg/dL Normal [facility] Comment on above: Result Comment: Bord olikvc=647-839 mg/dL Higher Kynk=880 mg/dL or greater Friedwald Equation for LDL-C Performed By: #### L 506.1001, L500.4100, L100.0100, L500.4050 #### [facility] [address] [place], [address] Cholesterol in VLDL [Mass/Vol] 15 mg/dL Normal 5-40 [facility] Comment on above: Performed By: #### L 506.1001, L500.4100, L100.0100, L500.4050 #### [facility] [address] [place], [address] Triglyceride [Mass/Vol] 77 mg/dL Normal [facility] Comment on above: Result Comment: The drugs N-Acetylcysteine and Metamizole may falsely depress this assay. Normal range: <150 mg/dL Borderline High: 150-199 mg/dL High: 200-499 mg/dL Very High: >500 mg/dL Performed By: #### L 506.1001, L500.4100, L100.0100, L500.4050 #### [facility] [address] [place], [address] MCV (mean corpuscular volume ) determinationOrdered By: Maldonado Dash on 06-04-2025 MCV (RBC) [Entitic vol] 91.7 fL 81-99 [facility] Mean corpuscular hemoglobin (MCH) determinationOrdered By: Maldonado Dash on 06-04-2025 MCH (RBC) [Entitic mass] 30.1 pg 27.0-32.0 [facility] Mean corpuscular hemoglobin concentration (MCHC) determinationOrdered By: Maldonado Dash on 06-04-2025 MCHC (RBC) [Mass/Vol] 32.8 g/dL 32-36 [facility] Mean platelet volume determi nationOrdered By: Maldonado Dash on 06-04-2025 Platelet mean volume (Bld) [Entitic vol] 10.4 fL 6.2-12.0 [facility] Monocyte percentageOrdered B y: Maldonado Dash on 06-04-2025 Monocytes/100 WBC (Bld) 10.4 % High 0-10 [facility] Neutrophil percentageOrdered By: Maldonado Dash on 06-04-2025 Neutrophils/100 WBC (Bld) 55.3 % 47-70 [facility] Nucleated red blood cell per centageOrdered By: Maldonado Dash on 06-04-2025 Nucleated RBC/100 WBC (Bld) [Ratio] 0 % 0-5 [facility] Platelet countOrdered By: Joceline Dash on 06-04-2025 Platelets (Bld) [#/Vol] 283 10*3/uL 150-450 [facility] Potassium measurement (mass/ volume)Ordered By: Maldonado Dash on 06-04-2025 Potassium (Unsp spec) [Mass/Vol] 4.0 mmol/L 3.3-5.1 [facility] RBC Auto (Bld) [#/Vol]Ordere d By: Maldonado Dash on 06-04-2025 RBC (Bld) [#/Vol] 4.22 10*6/uL 4.2-5.4 [facility] Screening total cholesterol/ high density lipoprotein (HDL) cholesterol ratioOrdered By: Maldonado Dash on 06-04-2025 Cholesterol.total/Cho lesterol in HDL [Mass ratio] 2.60 {ratio} [facility] Serum creatinine measurement (mass/volume)Ordered By: Maldonado Dash on 06-04-2025 Creatinine [Mass/Vol] 0.97 mg/dL 0.70-1.20 [facility] Serum globulin measurementOr dered By: Maldonado Dash on 06-04-2025 Globulin (S) [Mass/Vol] 2.8 g/dL 2.2-4.2 [facility] Serum glucose measurement (m ass/volume)Ordered By: Maldonado Dash on 06-04-2025 Glucose [Mass/Vol] 108 mg/dL High 70-99 [facility] Serum or plasma alanine jules otransferase (ALT) measurementOrdered By: Maldonado Dash on 06-04-2025 ALT [Catalytic activity/Vol] 13 U/L <35 [facility] Serum or plasma albumin rufino urement (mass/volume)Ordered By: Maldonado Dash on 06-04-2025 Albumin [Mass/Vol] 4.1 g/dL 3.4-4.8 [facility] Serum or plasma albumin/glob ulin mass ratioOrdered By: Maldonado Dash on 06-04-2025 Albumin/Globulin [Mass ratio] 1.4 {ratio} 0.9-2.4 [facility] Serum or plasma alkaline abraham sphatase measurementOrdered By: Maldonado Dash on 06-04-2025 ALP [Catalytic activity/Vol] 81 U/L 35-104 [facility] Serum or plasma calcium rufino urement (mass/volume)Ordered By: Maldonado Dash on 06-04-2025 Calcium [Mass/Vol] 9.5 mg/dL 7.6-11.0 [facility] Serum or plasma cholesterol in HDL measurement (mass/volume)Ordered By: Maldonado Dash on 06-04-2025 Cholesterol in HDL [Mass/Vol] 88 mg/dL >40 [facility] Comment on above: National Cholesterol Education Program (NCEP) guidelines:<40 mg/dL: Low HDL-cholesterol (major risk factor for CHD)>= 60 mg/dL: High HDL-cholesterol (negative risk factor for CHD)HDL-cholesterol is affected by a number of factors, e.g. smoking, exercise, hormones, sex and age. Serum or plasma cholesterol measurement (mass/volume)Ordered By: Maldonado Dash on 06-04-2025 Cholesterol [Mass/Vol] 228 mg/dL High <201 [facility] Comment on above: Cholesterol level, D esirable <200 mg/dLBorderline high cholesterol 200-239 mg/dLHigh cholesterol >=240 mg/dLRecommendations of the NCEP Adult Treatment Panel for the following risk-cutoff thresholds for the [place] population. Serum or plasma urea nitroge n measurement (mass/volume)Ordered By: Maldonado Dash on 06-04-2025 Urea nitrogen [Mass/Vol] 15 mg/dL 4-19 [facility] Sodium levelOrdered By: Benito kemplisethgonzalo Dash on 06-04-2025 Sodium [Moles/Vol] 140 mmol/L 133-145 [facility] Total proteinOrdered By: Casper Dash on 06-04-2025 Protein [Mass/Vol] 6.9 g/dL 5.9-8.4 [facility] Triglycerides measurementOrd ered By: Maldonado Dash on 06-04-2025 Triglyceride [Mass/Vol] 77 mg/dL <199 [facility] Comment on above: The drugs N-Acetylcy steine and Metamizole may falsely depress this assay. Normal range: <150 mg/dLBorderline High: 150-199 mg/dLHigh: 200-499 mg/dLVery High: >500 mg/dL Vitamin D,25 Hydroxyon 06-04 Vitamin D 25-OH 25.2 ng/mL Low 30-100 [facility] Comment on above: Result Comment: Faye min D Status Deficiency: <20 ng/mL (50nmol/L) Insufficiency: 20-30 ng/mL (50-75 nmol/L) Sufficiency: 30-100 ng/mL (75-250 nmol/L) Toxicity: >100 ng/mL (>250 nmol/L) Performed By: #### L 506.1001, L500.4100, L100.0100, L500.4050 #### [facility] [address] [place], [address] White blood cell (WBC) count Ordered By: Maldonado Dash on 06-04-2025 WBC (Bld) [#/Vol] 4.2 10*3/uL Low 4.4-11.0 [facility] Internal Medicine Office Vis iton 05-03-2025 Internal Medicine Office Visit [facility] [address] [place] [address] OFFICE VISIT Date of Service: 05/03/25 MR#: [id number] Acct: [id number] Name: KYMBERLY PICHARDO Rep #: [id number] : 1955 Provider: DREW muniz Age/Sex: 70/F Location: [facility] [place] Status: Signed Intake Vital Signs 08/04/24 08:29 05/03/25 16:11 Height 5 ft 10 in 5 ft 10 in Weight: 210 lb 8 oz 216 lb BMI 30.2 30.9 BP 120/60 118/74 Blood Pressure Location Lt brachial Lt brachial Position Sitting Sitting Respiration 16 14 Pulse 70 72 Pulse Source Monitor Monitor Temp 97.8 F 97.9 F Temp Source Temporal Temporal Pulse Oximetry (%) 98 98 Oxygen Delivery Method room air room air Intake Visit Reasons: POISON BOB - ARM AND STOMACH Senior Software Analyst Required: No Is patient in pain?: No Allergies aspirin Adverse Reaction (Mild, Verified 05/03/25 16:06) Hives Medications ???Medication ???Instructions ???Recorded ???Confirmed ???Type calcium 600 mg (as 1 cap PO DAILY 11/22/18 05/03/25 H istory carbonate)-vitamin D3 10 mcg (400 unit) capsule (Calcium with Vitamin D3) multivitamin 1 tab PO DAILY 11/22/18 05/03/25 H istory Have you fallen in the past year?: No PFSH Medical History Hyperlipidemia Osteopenia Alcohol use Trismus Non-smoker Head and neck cancer Back pain Knee pain Surgical History H/O plastic surgery History of parotidectomy Family History Mother Diabetes Colon cancer Father Leukemia Social History Smoking Status: Never smoker alcohol intake: current details: social substance use type: does not use caffeine: Yes what type of physical activity do you participate in: walking frequency: 1-2 times per week seatbelt use: always do you feel safe at home: Yes 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 HPI HPI Details: KYMBERLY PICHARDO, is a 70 F who presents to the office today for evaluation of a rash. Pt states she thinks she got into poison bob about a week ago while doing yardwork, she states it is spreading, it is on torso, both arms, on L side of face causing redness and swelling. Pt has been using antihistamines, calamine, and hydrocortisone. Pt states she has gotten this in the past and typically needs a shot and prednisone. It is red, swollen and very itchy. No fever or chills no shortness of breath. ROS Const Constitutional: No body ache, chills, excessive sweating, fatigue, fever(s), frequent falls, headache(s), snoring, weakness, sleep problems or change in appetite Eyes Eyes: No blurry vision, change in vision, eye pain or Light sensitivity ENT ENT: No abnormal hearing, ear or mastoid pain, tinnitus, nasal congestion, headache(s), neck pain or sore throat Resp Respiratory: No cough, shortness of breath, snoring or wheezing Cardio Cardiology: No chest pain at rest, chest pain with exertion, excessive sweating, shortness of breath, dyspnea on exertion, lightheadedness, orthopnea or palpitations Gastro GI: No abdominal pain, change in bowel habits, constipation, cramping, diarrhea, nausea/dyspepsia or vomiting Genitourinary-Female: No burning urination, painful urination, urinary incontinence, urinary frequency, abnormal vaginal bleeding or pelvic pain Musc Musculoskeletal: No abnormal gait, joint pain, back pain, limited range of motion, neck pain or numbness Skin Skin: Positive for change in skin color, redness, itchy eyes, rash and skin swelling; No dry skin, lesions or wounds Neuro Neurology: No abnormal gait, abnormal hearing, weakness, frequent falls, headache(s), memory loss or numbness Psych Psychiatric: No anxiety, No change in appetite, No depression, No memory loss and No Thoughts of harming yourself/Others Endo Endocrine: No cold intolerance, excessive sweating, fatigue, flushing, heat intolerance, increased thirst/drinking or increased hunger Aller/Imm Allergy/Immunologic: Positive for itchy eyes; No seasonal allergy symptoms, hives or wheezing Kayden/Lymp Hematologic/Lymphatic: No easy bleeding, easy bruising, enlarged lymph nodes or other Exam Const General: cooperative, healthy appearing and well groomed Nutritional Appearance: average body habitus Orientation: alert and oriented x3 HENMT Head: normal to inspection Ears: hearing grossly normal bilaterally, TM's abnormal bilaterally, right TM abnormal and left TM abnormal Nose: mucous membranes and turbinates abnormal Face and sinus: sinuses tender and sinus tenderness Mouth: oral mucosae normal and lip normal 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 Normal [facility] TSHon 01-17-2025 TSH Qn 1.41 m[IU]/L Normal 0.40-4.50 [facility] Comment on above: Performed By: #### 8 [id number] #### [facility] [address], [address] [place] [id number] Ore Feeder: Pa Sheffield MD XR CHEST 2 VIEWSon XR CHEST 2 VIEWS Interpreted By: Abdulkadir Acharya, STUDY: XR CHEST 2 VIEWS; 01/16/2025 12:42 pm INDICATION: Signs/Symptoms:hx head and neck cancer; assess for pulm mets. COMPARISON: 07/20/2023 ACCESSION NUMBER(S): [id number] ORDERING CLINICIAN: TYREL CHRISTINA FINDINGS: Heart size within normal limits. Lungs are clear without consolidation, effusion or pneumothorax. IMPRESSION: No acute cardiopulmonary process. MACRO: None Signed by: Abdulkadir Acharya 01/17/2025 6:57 PM Dictation workstation: [id number] [facility] Dexa Bone Density Studyon Dexa Bone Density Study [facility] Imaging Services [address] [place] [id number] Dexa Bone Density Study MR#: [id number] Acct: [id number] Name: KYMBERLY PICHARDO Rep #: [id number] : 1955 F 69 From: Rajinder rockwell MD PCP: Dr. Maldonado Dash MD Status: [facility] Study: Dexa Bone Density Study Date of Exam: 08/10/24 Exam# [id number] Ordering Dr: Flor Najera NP [place]ATTLE [place] -[id number] STUDY: DUAL ENERGY X-RAY ABSORPTIOMETRY / DXA REASON FOR EXAM: Female, 69 years old. Osteopenia/postmenopaus al TECHNIQUE: Bone Mineral Density (BMD) measurements of lumbar spine and bilateral hips were obtained. COMPARISON: Comparison is made with prior study dated August 06, 2022. FINDINGS: Lumbar Spine (L1-L4): g/cm2 (1.079) / T-score (-0.2) / Z-score (1.8) Findings are suggestive of normal bone density with a low fracture risk. Left Femur Total: g/cm2 (0.885) / T-score (-0.5) / Z-score (0.9) Left Femoral Neck: g/cm2 (0.66) / T-score (-1.6) / Z-score (0.0) Right Femur Total: g/cm2 (0.847) / T-score (-0.8) / Z-score (0.6) Right Femoral Neck: g/cm2 (0.655) / T-score (-1.7) / Z-score (-0.1) The T-Scores on the most recent prior examination were: Lumbar Spine (L1-L4): There has been improvement of bone density since the previous examination. Left Femur Total: which represents an improvement of 7.4%. Right Femur Total: which represents a worsening of 0.9%. BD/Dexa Bone Density Study IMPRESSION: The patient is considered osteopenic as outlined below according to World Shane Organization (WHO) criteria with a moderate fracture risk. There has been improvement of bone density since the previous examination. Reference Information: The T-score is the number of standard deviations above or below the standard which is normal for young adults at their peak bone mineral density. The World Health Organization (WHO) interprets the T-scores as follows: Above -1 Normal bone density Between -1 and -2.5 Osteopenia Equal to / or below -2.5 Osteoporosis As a practical clinical guideline, osteopenia may be graded as follows: Mild -1 through -1.5 Moderate -1.6 through -2.0 Severe -2.1 through -2.4 The Z-score is the number of standard deviations above or below age-matched controls. A Z-score of less than -1.5 would be considered abnormal. References: 1. NIH Osteoporosis and Related Bone Diseases www osteo.org 2. International Society for Clinical Densitometry www iscd.org 3. National Osteoporosis Foundation www nof.org Electronically Signed: Rajinder Vega MD at 13:34 EST Reading Location ID and State: [facility] / [place] , Service support , CC: DREW Najera; Dr. Maldonado Dash MD Public Relations Sales Marketing: Signed Normal [facility] Internal Medicine Office Vis lilliana 08-04-2024 Internal Medicine Office Visit [facility] [place], [place] [address] OFFICE VISIT Date of Service: 08/04/24 MR#: [id number] Acct: [id number] Name: KYMBERLY PICHARDO Rep #: [id number] : 1955 Provider: VIRIDIANA Padron Age/Sex: 69/F Location: [facility] [place] [facility] Status: Signed Intake Vital Signs 08/02/24 09:22 08/04/24 08:29 Height 5 ft 10 in 5 ft 10 in Weight: 210 lb 8 oz BMI 30.2 BP 120/60 Blood Pressure Location Lt brachial Position Sitting Respiration 16 Pulse 70 Pulse Source Monitor Temp 97.8 F Temp Source Temporal Pulse Oximetry (%) 98 Oxygen Delivery Method room air Intake Visit Reasons: ACUTE COLD SYMPTOMS X3 DAYS 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 Accompanied by: Self Is patient in pain?: No Allergies aspirin Adverse Reaction (Mild, Verified 08/04/24 10:56) Hives Medications ???Medication ???Instructions ???Recorded ???Confirmed ???Type calcium 600 mg (as 1 cap PO DAILY 11/22/18 08/04/24 History carbonate)-vitamin D3 10 mcg (400 unit) capsule (Calcium with Vitamin D3) multivitamin 1 tab PO DAILY 11/22/18 08/04/24 History Have you fallen in the past year?: No PFSH Medical History Hyperlipidemia Osteopenia Alcohol use Trismus Non-smoker Head and neck cancer Back pain Knee pain Surgical History H/O plastic surgery History of parotidectomy Family History Mother Diabetes Colon cancer Father Leukemia Social History Smoking Status: Never smoker alcohol intake: current details: social substance use type: does not use caffeine: Yes what type of physical activity do you participate in: walking frequency: 1-2 times per week seatbelt use: always do you feel safe at home: Yes 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 HPI HPI Chief Complaint: cold sx Details: KYMBERLY PICHARDO, is a 69 F who presents to the office today for some URI symptoms x 3-4 days. She states that she started with symptoms wednesday including runny nose and lots of sneezing. She states that she started to cough Wednesday during the evening. She states that the cough sounds deep but she is not getting any production with the cough. She states that she coughs more when she is out in the cold but in the warm at home she is not coughing much. She has not had any fevers or chills and has not noticed any shortness of breath or wheezing. She did do a home covid test and it was negative. She had her flu shot this year as well as the most recent round of covid shots. Her granddaughter had pneumonia at the same time is not around her but only a few hours last week. She has taken some OTC medications which have been somewhat helpful. ROS Const Constitutional: No body ache, chills, excessive sweating, fatigue, fever(s), frequent falls, headache(s), snoring, weakness or change in appetite Eyes Eyes: No blurry vision, change in vision, eye pain or Light sensitivity ENT ENT: Positive for nasal congestion; No abnormal hearing, ear or mastoid pain, tinnitus, headache(s), neck pain or sore throat Resp Respiratory: Positive for cough, chest congestion and wheezing; No shortness of breath or snoring Cardio Cardiology: No chest pain at rest, chest pain with exertion, excessive sweating, dyspnea on exertion, lightheadedness, orthopnea or palpitations Gastro GI: No abdominal pain, change in bowel habits, constipation, cramping, diarrhea, nausea/dyspepsia or vomiting Genitourinary-Female: No burning urination, painful urination, urinary incontinence or urinary frequency Musc Musculoskeletal: No abnormal gait, joint pain, back pain, limited range of motion, muscle weakness, neck pain or numbness Skin Skin: No dry skin, redness, lesions, itchy eyes, rash or wounds Neuro Neurology: No abnormal gait, abnormal hearing, weakness, frequent falls, headache(s), memory loss or numbness Psych Psychiatric: No anxiety, No change in appetite, No depression, No memory loss and No Thoughts of harming yourself/Others Endo Endocrine: No cold intolerance, excessive sweating, fatigue, flushing, heat intolerance, increased thirst/drinking or increased hunger Aller/Imm Allergy/Immunologic: Positive for wheezing; No itchy eyes, seasonal allergy symptoms or hives Kayden/Lymp Hematologic/Lymphatic: No easy bleeding or easy bruising Exam Const General: cooperative, healthy appearing, comfortable, no acute distress and well developed Nutritional Appearance: average body habitus and overweight Orientation: alert, awake and oriented x3 HENMT Ears: external ears normal and TM's normal bilater (more content not included)... Normal [facility] Survey Analyst Office Visit Reporton 08-02-2024 Survey Analyst Office Visit Report [facility] [address], [address] [place] [address] OFFICE VISIT Date of Service: 08/02/24 MR#: [id number] Acct: [id number] Name: KYMBERLY PICHARDO Rep #: [id number] : 1955 Provider: DREW reid Age/Sex: 69/F [place] [facility] [place]: Signed Intake Vital Signs 10/25/23 10:34 07/10/24 10:16 08/02/24 09:18 08/02/24 09:22 Height 5 ft 10 in 5 ft 10 in 5 ft 10 in 5 ft 10 in Weight: 208 lb 4 oz 211 lb BMI 29.9 30.2 BP 127/76 H 122/74 H Blood Pressure Location Rt brachial Position Sitting Respiration 16 Pulse 67 Pulse Source Monitor Temp 97.5 F L Temperature Source Temporal Artery Pulse Oximetry (%) 96 Oxygen Delivery Method room air 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: 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 Is patient in pain?: No Allergies aspirin Adverse Reaction (Mild, Verified 08/02/24 09:18) Hives Medications ???Medication ???Instructions ???Recorded ???Confirmed ???Type calcium 600 mg (as 1 cap PO DAILY 11/22/18 08/02/24 History carbonate)-vitamin D3 10 mcg (400 unit) capsule (Calcium with Vitamin D3) multivitamin 1 tab PO DAILY 11/22/18 08/02/24 History Is last menstrual period known: No Post menopausal: Yes Patient : No : No PFSH Medical History Hyperlipidemia Osteopenia Alcohol use Trismus Non-smoker Head and neck cancer Back pain Knee pain Surgical History H/O plastic surgery History of parotidectomy Family History Mother Diabetes Colon cancer Father Leukemia Social History Smoking Status: Never smoker alcohol intake: current details: social substance use type: does not use caffeine: Yes what type of physical activity do you participate in: walking frequency: 1-2 times per week seatbelt use: always do you feel safe at home: Yes 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 Date Name GA/Weeks Outcome Route Bth Weight Infant Gen Labor Lgth Anesthesia Del Locatn Provider FOB Unknown 1983 Aditya Unknown 1986 Rakesh Unknown 1987 [facility] Encounter for routine gynecological examination Details: KYMBERLY PICHARDO is a 69 year old who presents for annual exam. Denies concerns. Just returned from [facility]. Last PAP: na History of abnormal PAP: no Last mammogram: 06/2024 History of abnormal mammogram: no Colon cancer screenin Other preventative health care screenings: Hardy GOMEZ Const Constitutional: Denies fatigue, weight gain or weight loss Cardio Card: Denies chest pain Resp Resp: Denies cough or dyspnea on exertion GI GI: Denies abdominal pain, bloating, change in stool character, constipation or vomiting : Reports as per HPI; Denies difficulty voiding, pelvic pain, urinary frequency, urinary incontinence, urinary urgency, vaginal discharge or vaginal pruritus Exam Const General: cooperative, healthy appearing, no acute distress and well developed Orientation: alert, oriented to person and oriented to place HENGA Head: normal to inspection Neck Neck: normal visual inspection Thyroid: thyroid normal Lymphatic: no lymphadenopathy noted Chest Breast inspection: normal inspection of the breasts and normal inspection of the axillae Breast palpation: normal palpation of the breasts, normal palpation of the axillae and no axillary lymphadenopathy Resp Effort Inspection: normal respiratory effort GI Palpation: soft, no masses and nontender Rectal Exam: deferred External Female Exam: normal external appearance and normal appearance of the urethra Urethra: normal appearance of the urethra and normal palpation Speculum Exam - Vagina: normal appearance of the vagina and normal vaginal discharge Speculum Exam - Cervix: normal appearance of the cervix Bimanual Exam- Vagina Uterus: normal bimanual exam, uterine size normal, uterine shape normal and non-tender Bimanual Exam- Adnexa, other: normal adnexae, no masses, normal and non-tender Pelvic Support: normal Neuro General: patient alert and patient oriented x3 Psych Affect: normal affect Coding Level of Care Code MC Pelvic/Breast Diagnoses Encounter for gynecological examination without abnormal finding Z01.419 Gynecological examination findings: abnormal findings ABSENT Osteopenia, unspecifi (more content not included)... Normal [facility] Radiation Oncology Visiton 1 Radiation Oncology Visit [facility] [place] [address] OFFICE VISIT Date of Service: 07/10/24 1016 MR#: [id number] Acct: [id number] Name: KYMBERLY PICHARDO Rep #: [id number] : 1955 From: Herb Saldana DO Age/Sex: 69/F Location: [facility] [place] Status: Signed Intake Vital Signs 10/25/23 10:34 07/10/24 10:16 Height 5 ft 10 in 5 ft 10 in Weight: 205 lb 4 oz 208 lb 4 oz BMI 29.4 29.9 BP 121/78 H 127/76 H Blood Pressure Location Rt brachial Rt brachial Position Sitting Sitting Respiration 16 16 Pulse 68 67 Pulse Source Monitor Monitor Temp 97.5 F L 97.5 F L Temperature Source Temporal Artery Temporal Artery Pulse Oximetry (%) 95 96 Oxygen Delivery Method room air room air Intake Visit Reasons: 6 MONTH F/U H/N Chief Complaint: Annual Is patient in pain?: No Allergies aspirin Adverse Reaction (Mild, Verified 07/10/24 10:16) Hives Medications ???Medication ???Instructions ???Recorded ???Confirmed ???Type calcium 600 mg (as 1 cap PO DAILY 11/22/18 07/10/24 History carbonate)-vitamin D3 10 mcg (400 unit) capsule (Calcium with Vitamin D3) multivitamin 1 tab PO DAILY 11/22/18 07/10/24 History Have you fallen in the past year?: No PFSH PFSH Medical History Hyperlipidemia Osteopenia Alcohol use Trismus Non-smoker Head and neck cancer Back pain Knee pain Home Medications ???Medication ???Instructions ???Recorded ???Last Taken ???Type calcium 600 mg (as 1 cap PO DAILY 11/22/18 Unknown History carbonate)-vitamin D3 10 mcg (400 unit) capsule (Calcium with Vitamin D3) multivitamin 1 tab PO DAILY 11/22/18 Unknown History Allergy/AdvReac Type Severity Reaction Status Date / Time aspirin AdvReac Mild Hives Verified 07/10/24 10:16 Family History Mother Diabetes Colon cancer Father Leukemia Surgical History H/O plastic surgery History of parotidectomy Social History Smoking Status: Never smoker alcohol intake: current details: social substance use type: does not use caffeine: Yes what type of physical activity do you participate in: walking frequency: 1-2 times per week seatbelt use: always do you feel safe at home: Yes 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 From 01/06/2021 ??? 02/19/2021 she received adjuvant radiation therapy. History of Present Illness: 10/23/2020: Left neck ultrasound was performed. This demonstrated multiple masses in the left-sided neck with the largest measuring 3.3 x 2.1 x 2.5 cm. 10/29/2020: CT neck with contrast was performed. This demonstrated a lobulated heterogeneously enhancing soft tissue mass located in the superficial and deep left parotid gland measuring 2.3 x 2.8 x 2.9 cm. There are couple mildly enlarged left neck lymph nodes in level 2. No other abnormalities are identified. 11/04/2020: Left parotid mass FNA was completed and pathology was consistent with oncocytic neoplasm. 11/15/2020: Chest x-ray was performed which demonstrated no evidence of abnormality. 11/28/2020: Patient underwent left total parotidectomy with facial nerve sacrifice and left selective neck dissection levels 2 through 4. Pathology demonstrated high-grade salivary duct carcinoma measuring 3.1 cm, lymph vascular invasion present, perineural invasion present, 3/10 lymph nodes were positive within the parotidectomy specimen with extranodal extension focally present, 6/18 lymph nodes were present within the left neck level 2 with focal extranodal extension present, 1/5 lymph nodes contained metastatic disease within the left 1B without evidence of extranodal extension, 0/15 lymph nodes contained metastatic disease in level 3 and 0/18 lymph nodes contained metastatic disease and level 4. Multiple margins are close at 1 mm or less. pT2 pN3b 12/03/2020: Patient was evaluated by ENT. [place] to be healing well following surgery and drains were removed. 12/25/2020: CT chest with contrast was performed. This demonstrated a 2.7 mm noncalcified nodule in the anterior aspect of the right upper lobe. A similar-appearing well-defined nodule measuring 3.3 mm is seen in the medial aspect of the right upper lobe. There is evidence of a 2.7 x 1 cm linear nodular density along the lateral aspect of the left lower (more content not included)... Normal [facility] SCRN MAMM (CAD)W/JHONNY BILATo n 07-04-2024 SCRN MAMM (CAD)W/JHONNY BILAT [facility] Imaging Services [address] [place] [id number] SCRN MAMM (CAD)W/JHONNY BILAT MR#: [id number] Acct: [id number] Name: KYMBERLY PICHARDO Rep #: [id number] : 1955 F 69 From: Rajinder rockwell MD PCP: Dr. 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 Routine annual screening examination. PERTINENT HISTORY: Non-contributory. TECHNIQUE: Digital bilateral breast jhonny (3D mammographic acquisition) in the CC and MLO projections. 2-D mediolateral oblique (MLO) and craniocaudad (CC) views of both breasts were obtained. CAD: Full Field Digital Mammography with Computer Added Detection was performed. COMPARISON: Comparison is made with prior study May 25, 2023 and May 18, 2022. FINDINGS: Breast Composition: The breasts are heterogeneously dense, which may obscure small masses. There are no dominant masses or suspicious calcifications. No other significant abnormalities are identified. There has been no significant change since the prior study. BI/SCRN MAMM (CAD)W/JHONNY BILAT IMPRESSION: Stable bilateral screening mammogram. Yearly follow-up mammogram recommended. (A) ASSESSMENT CATEGORY: BIRADS Category 1: Negative. A letter regarding these results will be sent to the patient by the facility within 30 days. Approximately 10% of breast cancers are not detected by mammography. A normal mammogram should not delay biopsy of a clinically suspicious abnormality. [id number] Electronically Signed: Rajinder Vega MD at 11:08 EDT , CC: DREW Najera; Dr. Maldonado Dash MD Public Relations Sales Marketing: Signed Normal [facility] Established Visit (Otolaryng ology)on 01-19-2023 Established Visit (Otolaryngology) Diagnoses/Problems Cancer of parotid gland (142.0) (C07) Patient Discussion/Summary Status post parotidectomy and neck 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 She has no evidence of any recurrence. A TSH will be obtained today. Significant improvement of the facial asymmetry following surgery. I will see her in 6 months. 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 She has no evidence of any recurrence. A TSH will be obtained today. Significant improvement of the facial asymmetry following surgery. I will see her in 6 months. 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 History of Present IllnessThis patient was seen in October 2020 at the request of a local colleague. In late June 2020 she noticed a lump on the left side of her neck and preauricular area. She had some discomfort over the area and she also had some tightness of her face and some difficulty with eating. She had a CT scan that I personally reviewed that showed a large mass involving the superficial and deep lobe of the left parotid. On November 28, 2020 she underwent a radical parotidectomy and neck dissection with reconstruction. 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 She had 9 positive nodes. She completed her radiation therapy on February 19, 2021. She had a PET scan in May 2021. I personally reviewed that scan and it is definitely negative for anything worrisome in the head neck area or at distant sites. She had a chest x-ray in June 2022 which was negative. 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 She has no significant complaints. 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) Synkinesis (781.0) (R25.8) Trismus (781.0) (R25.2) Cancer of parotid gland (142.0) (C07) Past Medical History History of No pertinent past surgical history (V49.89) (Z78.9) History of No significant past medical history Family History Family history of diabetes mellitus (V18.0) (Z83.3) Family history of malignant neoplasm of colon (V16.0) (Z80.0) Family history of Family history of leukemia (V16.6) (Z80.6) Social History Lives with Non-smoker (V49.89) (Z78.9) Pets/Animals: Cat Pets/Animals: Dog Retired from employment Allergies aspirin Recorded By: Michelle Albert; 11/05/2020 9:32:52 AM No Known Environmental Allergies Recorded By: Michelle Albert; 11/05/2020 9:32:52 AM No Known Food Allergies Recorded By: Michelle Albert; 11/05/2020 9:32:52 AM Current Meds Medication NameInstruction Calcium TABS Multivitamin Women TABS Physical Exam Examination of the parotid, neck, and thyroid field shows no obvious evidence of any masses or adenopathies. He does have some left facial weakness mainly of the upper division. The intraoral exam is negative. The ear examination is negative. 'Scores and Scales' Signatures Electronically signed by : Tyrel Christina MD; Jan 19 2023 12:44PM EST (Author) [facility]23 TSH Qn 1.99 m[IU]/L Normal 0.44 - 3.98 [facility] Comment on above: Result Comment: TSH testing is performed using different testing methodology at [facility] than at other [facility]. Direct result comparisons should only be made within the same method. Performed By: #### T [facility] #### [address] [id number] Tobacco Screening.on 023 Adult depression screening assessment No [facility] Work Phone: Fall risk assessment a) No falls within the last year [facility]-Otolaryngol [facility] Work Phone: Tobacco use status CPHS b) No [facility]-Otolaryngol [facility] Work Phone: CHEST 2 VIEW PA AND LATon CHEST 2 VIEW PA AND LAT Patient Name: KYMBERLY PICHARDO STUDY: TH CHEST 2 VIEW PA AND LAT; 07/21/2022 1:41 pm INDICATION: hx head and neck cancer; assess for pulm mets C07: Cancer of parotid gland Z03.89: Observation for suspected neoplasm. COMPARISON: 11/15/2020 ACCESSION NUMBER(S): [id number] ORDERING CLINICIAN: TYREL CHRISTINA FINDINGS: PA and lateral radiographs of the chest were provided. CARDIOMEDIASTINAL SILHOUETTE: Cardiomediastinal silhouette is stable in size and configuration. LUNGS: Lungs are clear. No definite focal pulmonary nodule or mass. ABDOMEN: No remarkable upper abdominal findings. BONES: No acute osseous changes. IMPRESSION: 1. No evidence of acute cardiopulmonary process. No definite radiographic evidence of focal pulmonary nodule or mass. CT of the chest can be considered for more sensitive characterization if indicated. Electronically signed by: RYAN DELGADO MD [facility] Established Visit (Otolaryng ology)on 07-21-2022 Established Visit (Otolaryngology) Diagnoses/Problems Cancer of parotid gland (142.0) (C07) Patient Discussion/Summary Status post parotidectomy and neck 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 She has no evidence of any recurrence. A chest x-ray will be obtained today. Significant improvement of the facial asymmetry following surgery. I will see her in 6 months. 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 She has no evidence of any recurrence. A chest x-ray will be obtained today. Significant improvement of the facial asymmetry following surgery. I will see her in 6 months. 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 History of Present IllnessThis patient was seen in October 2020 at the request of a local colleague. In late June 2020 she noticed a lump on the left side of her neck and preauricular area. She had some discomfort over the area and she also had some tightness of her face and some difficulty with eating. She had a CT scan that I personally reviewed that showed a large mass involving the superficial and deep lobe of the left parotid. On November 28, 2020 she underwent a radical parotidectomy and neck dissection with reconstruction. 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 She had 9 positive nodes. She completed her radiation therapy on February 19, 2021. She had a PET scan in May 2021. I personally reviewed that scan and it is definitely negative for anything worrisome in the head neck area or at distant sites. The patient is feeling fairly good. 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) Synkinesis (781.0) (R25.8) Trismus (781.0) (R25.2) Past Medical History History of No pertinent past surgical history (V49.89) (Z78.9) History of No significant past medical history Family History Family history of diabetes mellitus (V18.0) (Z83.3) Family history of malignant neoplasm of colon (V16.0) (Z80.0) Family history of Family history of leukemia (V16.6) (Z80.6) Social History Lives with Non-smoker (V49.89) (Z78.9) Pets/Animals: Cat Pets/Animals: Dog Retired from employment Allergies aspirin Recorded By: Michelle Albert; 11/05/2020 9:32:52 AM No Known Environmental Allergies Recorded By: Michelle Albert; 11/05/2020 9:32:52 AM No Known Food Allergies Recorded By: Michelle Albert; 11/05/2020 9:32:52 AM Current Meds Medication NameInstruction Calcium TABS Multivitamin Women TABS Physical Exam Examination of the parotid, neck, and thyroid field shows no obvious evidence of any masses or adenopathies. He does have some left facial weakness mainly of the upper division. The intraoral exam is negative. The ear examination is negative. 'Scores and Scales' Signatures Electronically signed by : Tyrel Christina MD; Jul 21 2022 1:26PM EST (Author) Normal [facility] 07-21-2022 XR Chest 2 Views Please click on the link to view the study images Normal [facility] Work Phone: XR Chest 2 Views Normal [facility]Otola ryngol [facility] Work Phone: Tobacco Screening.on 022 Adult depression screening assessment No [facility] Work Phone: Fall risk assessment a) No falls within the last year [facility] Work Phone: Tobacco use status CPHS b) No [facility] Work Phone: Established Visit (Otolaryng ology)on 07-10-2022 Established Visit (Otolaryngology) Diagnoses/Problems Brow ptosis, left (701.8) (H57.812) Facial asymmetries (754.0) (Q67.0) Synkinesis (781.0) (R25.8) History of Present Illness s/p selective neurectomy, browlift, fascia suspension (fascia annabelle), muscle transposition Doing well, very happy with facial symmetry after browlfit and facial suspension healing well facial contour approriate brows symmetric synkinesis present, eyelid closure with bite recommend prn follow up further facial symmetry concerns may be addressed as needed 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) Synkinesis (781.0) (R25.8) Trismus (781.0) (R25.2) Past Medical History History of No pertinent past surgical history (V49.89) (Z78.9) History of No significant past medical history Family History Family history of diabetes mellitus (V18.0) (Z83.3) Family history of malignant neoplasm of colon (V16.0) (Z80.0) Family history of Family history of leukemia (V16.6) (Z80.6) Social History Lives with Non-smoker (V49.89) (Z78.9) Pets/Animals: Cat Pets/Animals: Dog Retired from employment Allergies aspirin Recorded By: Michelle Albert; 11/05/2020 9:32:52 AM No Known Environmental Allergies Recorded By: Michelle Albert; 11/05/2020 9:32:52 AM No Known Food Allergies Recorded By: Michelle Albert; 11/05/2020 9:32:52 AM Current Meds Medication NameInstruction Calcium TABS Multivitamin Women TABS Vitals Vital Signs Recorded: 10Jul2022 10:35AM Height5 ft 10 in Jvdyht575 lb 7 oz BMI Yhlvyvkbah50.46 kg/m2 BSA Calculated2.02 Tobacco Useb) No PHQ-2 #1. Over the last 2 weeks have you felt down, depressed or hopeless? (If yes, answer PHQ-9 below)No PHQ-2 #2. Over the last 2 weeks have you felt little interest or pleasure in doing things? (If yes, answer PHQ-9 below)No Falls Screening (Age 18+)a) No falls within the last year Pain Scale0/10 'Scores and Scales' Signatures Electronically signed by : Jc Nick MD; Jul 10 2022 1:00PM EST (Author) Normal [facility] Tobacco Screening.on 022 Adult depression screening assessment No [facility] Work Phone: Fall risk assessment a) No falls within the last year [facility]tolaryngol [facility] Work Phone: Tobacco use status CPHS b) No [facility]tolaryngol [facility] Work Phone: Established Visit (Otolaryng ology)on 03-27-2022 Established Visit (Otolaryngology) Diagnoses/Problems Abnormality of facial nerve (351.8) (G51.9) Brow ptosis, left (701.8) (H57.812) Provider Impressions Sutures removed today. She will follow-up with Dr. Nick as scheduled Chief Complaint Suture removal History of Present IllnessPatient presents today for suture removal. Patient of Dr. Nick's. Had surgery a little over 2 weeks ago Review of Systems ENT and Constitutional systems have been reviewed and are negative for complaint except what is stated in the HPI and/or Past Medical History. 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) Synkinesis (781.0) (R25.8) Trismus (781.0) (R25.2) Past Medical History History of No pertinent past surgical history (V49.89) (Z78.9) History of No significant past medical history Family History Family history of diabetes mellitus (V18.0) (Z83.3) Family history of malignant neoplasm of colon (V16.0) (Z80.0) Family history of Family history of leukemia (V16.6) (Z80.6) Social History Lives with Non-smoker (V49.89) (Z78.9) Pets/Animals: Cat Pets/Animals: Dog Retired from employment Allergies aspirin Recorded By: Michelle Albert; 11/05/2020 9:32:52 AM No Known Environmental Allergies Recorded By: Michelle Albert; 11/05/2020 9:32:52 AM No Known Food Allergies Recorded By: Michelle Albert; 11/05/2020 9:32:52 AM Current Meds Medication NameInstruction Calcium TABS Chlorhexidine Gluconate 0.12 % Mouth/Throat SolutionRINSE MOUTH WITH 15ML (1 CAPFUL) FOR 30 SECONDS AM AND PM AFTER TOOTHBRUSHING. EXPECTORATE AFTER RINSING, DO NOT SWALLOW Hibiclens 4 % External LiquidUSE DIRECTED. Multivitamin Women TABS Vitals Vital Signs Recorded: 27Mar2022 10:42AM Kxypcyzhjfg17.4 F Height5 ft 10 in Ubqwpb695 lb 6 oz BMI Kfdhrjxqes59.74 kg/m2 BSA Calculated1.99 Tobacco Useb) No Falls Screening (Age 18+)a) No falls within the last year Pain Scale0/10 Physical Exam Prolene sutures removed from left brow All incisions checked and no sign of infection 'Scores and Scales' Signatures Electronically signed by : Breezy Elliott MD; Mar 30 2022 8:22AM EST (Author) Normal [facility] Tobacco Screening.on 022 Fall risk assessment a) No falls within the last year [facility] Work Phone: Tobacco use status CPHS b) No [facility]Otolaryngol [facility] Work Phone: Established Visit (Otolaryng ology)on 03-16-2022 Established Visit (Otolaryngology) Diagnoses/Problems Facial asymmetries (754.0) (Q67.0) Chief Complaint POV surgery 03/10 History of Present Illnesss/p selective neurectomy, browlift, fascia suspension (fascia annabelle), muscle transposition Doing well, expected swelling incisions c/d/i, healing well facial contour approriate swelling present as expected recommend follow up 2-3 months incision care discussed scar care discussed 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) Synkinesis (781.0) (R25.8) Trismus (781.0) (R25.2) Past Medical History History of No pertinent past surgical history (V49.89) (Z78.9) History of No significant past medical history Family History Family history of diabetes mellitus (V18.0) (Z83.3) Family history of malignant neoplasm of colon (V16.0) (Z80.0) Family history of Family history of leukemia (V16.6) (Z80.6) Social History Lives with Non-smoker (V49.89) (Z78.9) Pets/Animals: Cat Pets/Animals: Dog Retired from employment Allergies aspirin Recorded By: Michelle Albert; 11/05/2020 9:32:52 AM No Known Environmental Allergies Recorded By: Michelle Albert; 11/05/2020 9:32:52 AM No Known Food Allergies Recorded By: Michelle Albert; 11/05/2020 9:32:52 AM Current Meds Medication NameInstruction Calcium TABS Chlorhexidine Gluconate 0.12 % Mouth/Throat SolutionRINSE MOUTH WITH 15ML (1 CAPFUL) FOR 30 SECONDS AM AND PM AFTER TOOTHBRUSHING. EXPECTORATE AFTER RINSING, DO NOT SWALLOW Hibiclens 4 % External LiquidUSE DIRECTED. Multivitamin Women TABS oxyCODONE HCl - 5 MG Oral Tablet Vitals Vital Signs Recorded: 16Mar2022 02:08PM Zgysowieuzv79.4 F Height5 ft 10 in Nulexe796 lb BMI Eobnckmobq42.25 kg/m2 BSA Calculated1.98 Tobacco Useb) No Falls Screening (Age 18+)a) No falls within the last year 'Scores and Scales' Signatures Electronically signed by : Jc Nick MD; Mar 20 2022 5:44PM EST (Author) Normal [facility] Tobacco Screening.on 022 Fall risk assessment a) No falls within the last year MG-Otolaryngol [facility] [address] Work Phone: Tobacco use status CPHS b) No MG-Otolaryngol [facility] [address] Work Phone: Order Reconciliationon 03-10 Order Reconciliation Page 1 Discharge Reconciliation Document Reconciliation Type: Discharge requested on behalf of Terrance Rivers (Resident) done by Terrance Rivers ( (Resident)) Discharge - Reconciliation: 10-Mar-2022 12:18 by: Terrance Rivers (Resident)) Home Medications EnteredHOME MEDICATIONS AT DISCHARGE DateReconciliation Comment/ Additional Information Calcium 600 mg oral tablet 1 tab(s) oral once a day 26-Feb-2022 10:22 Calcium 600 mg oral tablet 1 tab(s) oral once a day 26-Feb-2022 10:22 Calcium 600 mg oral tablet is continued as Calcium 600 mg oral tablet multivitamin Multiple Vitamins oral capsule 1 tab(s) oral once a day 26-Feb-2022 10:22 multivitamin Multiple Vitamins oral capsule 1 tab(s) oral once a day 26-Feb-2022 10:22 multivitamin Multiple Vitamins oral capsule is continued as multivitamin Multiple Vitamins oral capsule Current OrdersDateHOME MEDICATIONS AT DISCHARGE DateReconciliation Comment/ Additional Information Acetaminophen Tablet (TYLENOL)DOSE = 650 mg Oral Every 4 Hours, PRN Pain - Mild (1-3) (PACU) when able to take OralStop After 1 DosesClinician Notes: Lizette-operative order ONLY 10-Mar-2022 08:46 Acetaminophen is not required HYDROmorphone Injectable (DILAUDID)DOSE = 0.2 mg IntraVenous Push Every 5 Minutes, PRN Pain - Mod (4-6) (PACU) if unable to take oralClinician Notes: Lizette-operative order ONLYMax total of 4 mg regardless of dose. 10-Mar-2022 08:46 HYDROmorphone Injectable is not required HYDROmorphone Injectable (DILAUDID)DOSE = 0.4 mg IntraVenous Push Every 5 Minutes, PRN Pain - Severe (7-10) (PACU)Clinician Notes: Lizette-operative order ONLYMax total of 4 mg regardless of dose. 10-Mar-2022 08:46 HYDROmorphone Injectable is not required Lactated Ringers Infusion IV Bag Volume = 1,000 mL Run at: 50 mL/hr IntraVenous Clinician Notes: Lizette-operative order ONLY 10-Mar-2022 08:46 Lactated Ringers Infusion is not required Ondansetron Injectable (ZOFRAN)DOSE = 4 mg IntraVenous Push Once, PRN PONV, first lineClinician Notes: Lizette-operative order ONLY 10-Mar-2022 08:46 Ondansetron Injectable is not required oxyCODONE Immediate Release Tablet (OXYIR, ROXICODONE)DOSE = 5 mg Oral Every 4 Hours, PRN Pain - Mod (4-6) (PACU) when able to take OralStop After 1 DosesClinician Notes: Lizette-operative order ONLY 10-Mar-2022 08:46 oxyCODONE Immediate Release is not required Promethazine IV Piggy Back in Sodium Chloride 0.9% 50 mL (PHENERGAN)DOSE = 6.25 mg Once, PRN persistent PONV if first line ineffectiveRecommended Infusion Time: 15 minute(s)Clinician Notes: Lizette-operative order ONLY 14-Thomas-2022 08:46 Promethazine IV Piggy Back is not required Home Medications Added During Discharge Reconciliation acetaminophen 325 mg oral tablet 2 tab(s) orally 4 times a day, As Needed for mild pain Call Physician For: excessive bleeding (slow general oozing that completely soaks dressing or fresh bright red bleeding) or bleeding that will not stop. Apply pressure to the area and elevate. Call Physician For: inability to urinate every 8-12 hours and your bladder becomes too full or painful. Call Physician For: persistant nausea and/or vomiting Over 24 hours Call Physician For: signs and sypmtoms of infection Increased redness or swelling at incision site, increased pain/tenderness at surgical site, increased temperature greater than 100 degress, increasing and/or progressive drainage from surgical site, and/or unusual odor from surgical site. Diet Regular Discharge Discharge Diagnosis< G51.0 Facial nerve paralysis Discharge Provider, Jc Nick Discharge Disposition : .Home Condition at Discharge: Satisfactory Discharge Communication Instructions for Nursing Only: Remove IV prior to discharge from hospital. Do not remove any midline, if present, without an order from the provider. Discharge Instructions - PHR After your discharge from the hospital, two Summary of Care Documents will be available online in your Personal Health Record (PHR). 1.Consolidated-Clinical Document Architecture (C-CDA) Patient Discharge Summary This document is a summary of your hospital stay to be kept for your reference.2.C-CDA Visit Summary This document is a summary of your hospital stay to be shared with your follow-up providers (doctor, hat block bench hand, physical therapist, etc.). Follow Up with Dr. Nick in 1 Weeks [phone] MiraLax oral powder for reconstitution 17 gram(s) orally once a day, As Needed for constipation oxyCODONE 5 mg oral tablet 1 tab(s) orally every 6 hours, As Needed for severe pain, Dx: G89.18 petrolatum topical ointment Apply topically to incisions area 2 times a day for 10 days or until healed Post Procedure Discharge Criteria Criteria: Easily arousable / responding appropriately; Significant complications are absent; SpO2 = or > 92%, or if SpO2 < 92%, maintains within 2% of baseline; Vital sig (more content not included)... Normal [facility] Patient Profile - Preop v3on 03-10-2022 Patient Profile - Preop v3 Patient Profile - Preop: Initial Info: Patient DemographicsName: KYMBERLY PICHARDO Date: 1955 Address: [address] [place] [address] Primary Phone [phone] How to be AddressedJanis Spoken Language PreferredEnglish Stated Reason for Admissioneyebrow and mouth lift Primary Contact Name and NumberPaul Luis Alberto [phone] Medications Brought to Hospitalno General Health: Weight in kg80.8 kilogram(s) Weight in adm583.1 pound(s) Weight Methodactual (measured) Height in feet5 feet Height in myxqur08 inch(es) Height in cm177.8 centimeter(s) Height Methodstated BMI (kg/m2)25.559 square meter Patient or Family Member Reaction to Anesthesiano previous reaction Blood Avoidance/Restrictionsn one Previous Transfusion Reactionnot applicable Health Mgmt: Symptoms/Conditions Managed at Homeneurological Barriers to Managing Healthnone Relationship/Environ: Lives Withspouse Living Arrangementshouse Resource/Environmental Concernsnone [place]ticipated [facility] [place] [facility] Anticipated at Transitionnone Tobacco Use: Tobacco Useno Pre-op Checklist: Arrival [id number] Arrival Time06:50 Procedure Typehead/face scar revision NPOyes Last Food [id number] 07:11 Last Clear Fluid [id number] 00:00 ID Band On Patientpatient ID (name), allergy Consent Signedpending H&P Completepending Anesthesia Assessment Completedpending EKG Performedsee results tab Chest X-Ray Performedsee results tab Preop Antibioticsnot ordered Beta-pablo Commentn/a COVID 19 Results in Last 7 daysneg Glucose Resultn/a Type and Screen Resultedyes HCG Urine TestN/A Chlorhexadine Bath Givencompleted at home, given night before surgery, completed morning of surgery Nasal Antiseptic Appliednot applicable Soap and Water Bath the Night Before Surgerynot applicable Hair Washed with Shampoonot applicable Bowel Prepno Surgical Site Infection Preventionyes Pain Scales and Managementyes Additional Information: Information Review: Allergies, Home Meds and Significant Events have been Reviewed and Verified with Patient/Familyyes Allergy, Intolerance, Adverse Event: Allergies: aspirin: Drug, Hives/Urticaria, Active Electronic Signatures: Aly Sahni (KATHY) (Signed 10-Mar-2022 07:14) Authored: Initial Info, General Health, Health Mgmt, Relationship/Environ, Tobacco Use, Pre-op Checklist, Additional Information Last Updated: 10-Mar-2022 07:14 by Aly Sahni) Normal [facility] CORONAVIRUS 2019, SCREEN ASY MPTOMATICon 03-08-2022 SARS-CoV-2 (COVID-19) RNA CHAIM+probe Ql (Unsp spec) Not detected Normal Not Detected [facility] Comment on above: Result Comment: . This assay is designed to detect the N, ORF1ab and/or S genes of SARS-CoV-2 via nucleic acid amplification. A Negative (NOT DETECTED) result does not preclude 2019-nCoV infection since the adequacy of sample collection and/or low viral burden may result in presence of viral nucleic acids below the clinical sensitivity of this test method. Negative (NOT DETECTED) result should not be used as the sole basis for treatment or other patient management decisions. Rather negative results should be combined with clinical observations, patient history, and epidemiological information to make patient management decisions. Fact sheet for providers: https://www.fda.gov/media/835895/download Fact sheet for patients: https://www.fda.gov/media/358927/download This test has received FDA Emergency Use Authorization (EUA) and has been verified by [facility] ([facility]). This test is only authorized for the duration of time that circumstances exist to justify the authorization of the emergency use of in vitro diagnostic tests for the detection of SARS-CoV-2 virus and/or diagnosis of COVID-19 infection under section 564(b)(1) of the Act, 21 U.S.C. 360bbb-3(b)(1), unless the authorization is terminated or revoked sooner. [facility] is certified under CLIA-88 as qualified to perform high complexity testing. Testing is performed in the [facility] laboratories located at [id number] [place] [address]. Performed By: #### C OVSC ####[id number] [place] [address] Covid 19 Resultson 2 SARS-CoV-2 (COVID-19) RNA CHAIM+probe Ql (Unsp spec) NEGATIVE COVID-19 Test Coronaviruses are common world-wide and are the cause of many common colds. SARS-COV2 is a new coronavirus that began circulating worldwide in 2019 so we are calling it COVID-19. It has been estimated that four out of five patients with COVID-19 will recover at home without the need for medical attention. Symptoms of COVID-19 may include cough, fever, shortness of breath, loss of taste or smell and other flu-like symptoms including chills, sore muscles, sore throat, and headache. Severe illness is more common in older people and people with other health problems such as high blood pressure, obesity, and immune system problems. If the test is positive, you have COVID-19. You will be contacted by the ordering physicians office and instructed to remain on home isolation, in accordance with CDC guidelines. You may also be contacted by the [facility] to see if any of your close contacts may have been exposed to the virus and need to quarantine. If the test is negative, you likely do not have COVID-19 at this time, but you still may have a different illness that can spread to other people (like Influenza, or the Flu) and could still be at risk for getting COVID-19. We recommend that you stay away from other people to limit the spread of illness until your symptoms are improving and you are fever-free for 24 hours without the use of fever lowering medications such as acetaminophen or ibuprofen. No test is 100% accurate so if you are still concerned you may have COVID-19, talk to your doctor about the need to continue to stay away from others. Medicines Unless your provider told you not to use the following: Acetaminophen (Tylenol and others) is generally safe. Anti-inflammatory medications, such as Ibuprofen (Advil or Motrin) or Naproxen (Aleve) can also be used. Sfbb-msb-mbithfz cough and cold medicines can be used according to the instructions on the package. Some qmyu-sth-fhzxcwg medicines also contain acetaminophen. Make sure you are not taking more than your recommended dose. For those not hospitalized, there is no specific treatment available for this illness. Antibiotics do not treat Coronaviruses. Follow-Up Follow up with your doctor by scheduling a virtual visit or consider follow-up at one of our urgent care fever clinics. If you are having difficulty breathing, or are very weak and having difficulty standing, this is a medical emergency. Call 911 or have someone take you to the nearest emergency room immediately. If possible, wear a facemask. Additional guidance from the CDC for patients who tested POSITIVE for COVID-19 How to isolate: Isolate yourself in a specific room at home and limit your contact with others. Use a separate bathroom from other members of the household, when possible. Leave home only to get essential medical care. Do not go to work, school or public areas. Avoid using public transportation, ride-sharing, or taxis. Restrict contact with pets and other animals. If you must care for your pet or be around animals while you are sick, wash your hands before and after your interaction and wear a facemask. Make sure that shared spaces in the home have good airflow, such as by an air conditioner or an opened window, weather permitting. Personal Hygiene Procedures: Wear a face mask when in the same room as other people or pets. If a face mask interferes with your breathing, others should wear a mask when sharing space with you. Frequent hand-washing: wash your hands with soap and water for at least 20 seconds. If soap and water are not available, use alcohol-based hand cycle touring guide. Avoid touching your eyes, nose, and mouth with unwashed hands. Household Hygiene Procedures: Avoid sharing personal household items such as dishes, glassware, cups, eating utensils, towels or bedding with other people or pets in your home. After use, these items should be washed with soap and hot water. Disinfect all high-touch surfaces every day with antibacterial cleaning solutions such as Lysol wipes, bleach, cleansers, etc. High-touch surfaces include tabletops, doorknobs, bathroom fixtures, toilets, phones, keyboards, tablets and bedside tables. Immediately clean any surfaces that may have blood, poop or body fluids on them, using antibacterial cleaning solutions such as Lysol wipes, bleach, cleansers, etc. If clothing or bedding come into contact with blood, poop or body fluids, they should be washed immediately. Follow the directions on the laundry detergent and clothing labels but hot water is recommended when possible. Stopping home isolation precautions: If possible, consult your doctor before stopping home isolation precautions. According to the CDC, you can discontinue home isolation precautions when you have met both of these criteria: Your fever and respiratory symptoms have been gone for 24 bettina (more content not included)... Normal [facility] CORONAVIRUS 2019, SCREEN ASY MPTOMATICon 03-07-2022 Lab Specimen Source Nasal, Nasopharyngeal Normal [facility] Comment on above: Performed By: #### C OVSC ####[id number] [place] [address] Coronavirus 2019 RNA by PCR, Screening Asymptomticon 03-07-2022 Coronavirus 2019 RNA by PCR, Screening Asymptomtic Not detected Normal See Below [facility] Work Phone: Comment on above: SOURCE: Nasal, Nasop haryngealReference Range: Not Detected.This assay is designed to detect the N, ORF1ab and/or S genes of SARS-CoV-2 via nucleic acid amplification. A Negative (NOT DETECTED) result does not preclude 2019-nCoV infection since the adequacy of sample collection and/or low viral burden may result in presence of viral nucleic acids below the clinical sensitivity of this test method. Negative (NOT DETECTED) result should not be used as the sole basis for treatment or other patient management decisions. Rather negative results should be combined with clinical observations, patient history, and epidemiological information to make patient management decisions.Fact sheet for providers: https://www.fda.gov/media/235040/downloadFact sheet for patients: https://www.fda.gov/media/107960/downloadThis test has received FDA Emergency Use Authorization (EUA) and has been verified by [facility] ([facility]). This test is only authorized for the duration of time that circumstances exist to justify the authorization of the emergency use of in vitro diagnostic tests for the detection of SARS-CoV-2 virus and/or diagnosis of COVID-19 infection under section 564(b)(1) of the Act, 21 U.S.C. 360bbb-3(b)(1), unless the authorization is terminated or revoked sooner. [facility] is certified under CLIA-88 as qualified to perform high complexity testing. Testing is performed in the [facility] laboratories located at [address] [place] [address]. BASIC METABOLIC PANELon 06-0 Anion gap [Moles/Vol] 15 mmol/L Normal 10 - 20 [facility] Comment on above: Performed By: #### B MP #### [facility] [address] [place] [address] Calcium [Mass/Vol] 9.7 mg/dL Normal 8.6 - 10.6 [facility] Comment on above: Performed By: #### B MP #### [facility] [address] [place] [address] Chloride [Moles/Vol] 103 mmol/L Normal 98 - 107 [facility] Comment on above: Performed By: #### B MP #### [facility] [address] [place] [address] Creatinine [Mass/Vol] 0.93 mg/dL Normal 0.50 - 1.05 [facility] Comment on above: Performed By: #### B MP #### [facility] [address] [place] [address] GFR/1.73 sq M.predicted among non-blacks MDRD (S/P/Bld) [Vol rate/Area] 68 mL/min/{1.73_m2} Normal >90 [facility] Comment on above: Result Comment: CALC ULATIONS OF ESTIMATED GFR ARE PERFORMED USING THE 2020 CKD-EPI STUDY REFIT EQUATION WITHOUT THE RACE VARIABLE FOR THE IDMS-TRACEABLE CREATININE METHODS. https://jasn.asnjournals.org/content/early//ASN.902738 8052 Performed By: #### B MP #### [facility] [address] [place] [address] Glucose [Mass/Vol] 87 mg/dL Normal 74 - 99 [facility] Comment on above: Performed By: #### B MP #### [facility] [address] [place] [address] HCO3 (Bld) [Moles/Vol] 28 mmol/L Normal 21 - 32 [facility] Comment on above: Performed By: #### B MP #### [facility] [address] [place] [address] Potassium [Moles/Vol] 4.6 mmol/L Normal 3.5 - 5.3 [facility] Comment on above: Performed By: #### B MP #### [facility] [address] [place] [address] Sodium [Moles/Vol] 141 mmol/L Normal 136 - 145 [facility] Comment on above: Performed By: #### B MP #### [facility] [address] [place] [address] Urea nitrogen [Mass/Vol] 14 mg/dL Normal 6 - 23 [facility] Comment on above: Performed By: #### B MP #### [facility] [address] [place] [address] CBCon 03-02-2022 Erythrocyte distribution width (RBC) [Ratio] 13.3 % Normal 11.5 - 14.5 [facility] Comment on above: Performed By: #### C BC #### [facility] [address] [place] [address] Hematocrit (Bld) [Volume fraction] 43.9 % Normal 36.0 - 46.0 [facility] Comment on above: Performed By: #### C BC #### [facility] [address] [place] [address] Hemoglobin (Bld) [Mass/Vol] 13.7 g/dL Normal 12.0 - 16.0 [facility] Comment on above: Performed By: #### C BC #### [facility] [address] [place] [address] MCHC (RBC) [Mass/Vol] 31.2 g/dL Low 32.0 - 36.0 [facility] Comment on above: Performed By: #### C BC #### [facility] [address] [place] [address] MCV (RBC) [Entitic vol] 96 fL Normal 80 - 100 [facility] Comment on above: Performed By: #### C BC #### [facility] [address] [place] [address] NUCLEATED RBC 0.0 /100 WBC Normal 0.0-0.0 [facility] Comment on above: Performed By: #### C BC #### [facility] [address] [place] [address] Platelets (Bld) [#/Vol] 275 10*3/uL Normal 150 - 450 [facility] Comment on above: Performed By: #### C BC #### [facility] [address] [place] [address] RBC 4.57 x10E12/L Normal 4.00 - 5.20 [facility] Comment on above: Performed By: #### C BC #### [facility] [address] [place] [address] WBC (Bld) [#/Vol] 3.6 10*3/uL Low 4.4 - 11.3 [facility] Comment on above: Performed By: #### C BC #### [facility] [address] [place] [address] Electrocardiogram 12 Leadon 03-02-2022 Electrocardiogram 12 Lead Ventricular Rate 70 Atrial Rate 70 P-R Interval 144 QRS Duration 86 Q-T Interval 402 QTC Calculation(Bazett) 434 P Minerva 38 R Minerva 58 T Minerva 51 QRS Count 11 Q Onset 215 P Onset 143 P Offset 201 T Offset 416 QTC Fredericia 423 Diagnosis Class Normal Diagnosis Normal sinus rhythm Normal ECG When compared with ECG of 15-NOV-2020 13:44, No significant change was found Confirmed by Hola Goodrich ([id number]) on 03/02/2022 4:24:28 PM Normal [facility] Laboratory - Blood bankon ABO group Nom (Bld) A [facility] Work Phone: Blood group antibody screen Ql Negative [facility] Work Phone: Rh immune globulin screen (Bld) [Interp] Negative [facility] Work Phone: Laboratory - Chemistry and C hemistry - challengeon 03-02-2022 Anion gap [Moles/Vol] 15 mmol/L 10 - 20 [facility] Work Phone: Calcium [Mass/Vol] 9.7 mg/dL 8.6 - 10.6 [facility] Work Phone: Chloride [Moles/Vol] 103 mmol/L 98 - 107 [facility] Work Phone: CO2 [Moles/Vol] 28 mmol/L 21 - 32 [facility] Work Phone: Creatinine [Mass/Vol] 0.93 mg/dL See Below [facility] Work Phone: Comment on above: Reference Range: 0.5 0 - 1.05 Glucose [Mass/Vol] 87 mg/dL 74 - 99 [facility] Work Phone: Potassium [Moles/Vol] 4.6 mmol/L 3.5 - 5.3 [facility] Work Phone: Sodium [Moles/Vol] 141 mmol/L 136 - 145 [facility] Work Phone: Urea nitrogen [Mass/Vol] 14 mg/dL 6 - 23 [facility] Work Phone: Laboratory - Hematology and Cell countson 03-02-2022 Erythrocyte distribution width (RBC) [Ratio] 13.3 % See Below [facility] Work Phone: Comment on above: Reference Range: 11. 5 - 14.5 Hematocrit (Bld) [Volume fraction] 43.9 % See Below [facility] Work Phone: Comment on above: Reference Range: 36. 0 - 46.0 Hemoglobin (Bld) [Mass/Vol] 13.7 g/dL See Below [facility] Work Phone: Comment on above: Reference Range: 12. 0 - 16.0 MCHC (RBC) [Mass/Vol] 31.2 g/dL below low threshold See Below [facility] Work Phone: Comment on above: Reference Range: 32. 0 - 36.0 MCV (RBC) [Entitic vol] 96 fL 80 - 100 [facility] Work Phone: Platelets (Bld) [#/Vol] 275 10*3/uL 150 - 450 [facility] Work Phone: RBC (Bld) [#/Vol] 4.57 {x10E12/L} See Below [facility] Work Phone: Comment on above: Reference Range: 4.0 0 - 5.20 WBC (Bld) [#/Vol] 3.6 10*3/uL below low threshold 4.4 - 11.3 [facility] Work Phone: MRSA Screenon 03-02-2022 Staphylococcus sp identified Org specific cx Nom (Unsp spec) [facility] Work Phone: No Panel Informationon 03-02 68 {mL/min/1.73m2} >90 [facility] Work Phone: Comment on above: CALCULATIONS OF JV MATED GFR ARE PERFORMED USING THE 2020 CKD-EPI STUDY REFIT EQUATION WITHOUT THE RACE VARIABLE FOR THE IDMS-TRACEABLE CREATININE METHODS.https://jasn.asnjournals.org/content/early/ N.3406580526 0.0 {/100_WBC} 0.0-0.0 [facility] Work Phone: https://[facility] B[facility] :8080/musescripts/yayow eb.dll?RetrieveTestByDa teTime?GitfenhEH=[email or web address] 827&Date=03-02-2022&Abran e=[email or web address]%3a00&Nelli tType=ECG&Site=1&Output Type=PDF&Ext=PDF [facility] Work Phone: Normal sinus rhythm [facility] Work Phone: Normal [facility] Work Phone: 423 1 [facility] Work Phone: 416 1 [facility] Work Phone: 201 1 [facility] Work Phone: 143 1 [facility] Work Phone: 215 1 [facility] Work Phone: 11 1 [facility] Work Phone: 51 1 [facility] Work Phone: 58 1 [facility] Work Phone: 38 1 [facility] Work Phone: 434 1 [facility] Work Phone: 402 1 [facility] Work Phone: 86 1 [facility] Work Phone: 144 1 [facility] Work Phone: 70 1 [facility] Work Phone: STAPH/MRSA SCREENon 03-02-20 22 STAPH/MRSA SCREEN PATIENT: TERRY PICHARDO SOLOMON LOCATION: [facility]#: [id number] : 59 AGE: SEX: F ORDERED BY: JC NICK SOURCE: ANTERIOR NARES COLLECTED: 03/02/22 12:09 ANTIBIOTICS AT NGOZI.: RECEIVED : 03/02/22 16:53 SITE: Nasal R E S U L T S STAPH/MRSA SCREEN FINAL 03/04/22 12:20 NO Staphylococcus aureus ISOLATED. Normal [facility] Comment on above: Performed By: #### S TAPH ####[id number] [place] [address] TYPE + SCREENon 03-02-2022 ABO TYPE A Normal [facility] Comment on above: Performed By: #### T +S #### [facility] [address] [place] [address] RH TYPE Negative Normal [facility] Comment on above: Performed By: #### T +S #### [facility] [address] 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 She has no evidence of any recurrence. Impacted cerumen in the left ear which was addressed with a small instrument. Facial paralysis for which she will have revision surgery in February by one of my partners. I will see her in 4 months. 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 She has no evidence of any recurrence. Impacted cerumen in the left ear which was addressed with a small instrument. Facial paralysis for which she will have revision surgery in February by one of my partners. I will see her in 4 months. 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 History of Present IllnessThis patient was seen in October 2020 at the request of a local colleague. In late June 2020 she noticed a lump on the left side of her neck and preauricular area. She had some discomfort over the area and she also had some tightness of her face and some difficulty with eating. She had a CT scan that I personally reviewed that showed a large mass involving the superficial and deep lobe of the left parotid. On November 28, 2020 she underwent a radical parotidectomy and neck dissection with reconstruction. 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 She had 9 positive nodes. She completed her radiation therapy on February 19, 2021. She had a PET scan in May 2021. I personally reviewed that scan and it is definitely negative for anything worrisome in the head neck area or at distant sites. The patient is feeling fairly good. She does have some facial asymmetry. He is scheduled to undergo surgery for her facial paralysis next month. 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) Synkinesis (781.0) (R25.8) Trismus (781.0) (R25.2) Past Medical History History of No pertinent past surgical history (V49.89) (Z78.9) History of No significant past medical history Family History Family history of diabetes mellitus (V18.0) (Z83.3) Family history of malignant neoplasm of colon (V16.0) (Z80.0) Family history of Family history of leukemia (V16.6) (Z80.6) Social History Lives with Non-smoker (V49.89) (Z78.9) Pets/Animals: Cat Pets/Animals: Dog Retired from employment Allergies aspirin Recorded By: Michelle Albert; 11/05/2020 9:32:52 AM No Known Environmental Allergies Recorded By: Michelle Albert; 11/05/2020 9:32:52 AM No Known Food Allergies Recorded By: Michelle Albert; 11/05/2020 9:32:52 AM Current Meds Medication NameInstruction Calcium TABS Multivitamin Women TABS Vitals Vital Signs Recorded: 17Feb2022 02:49PM Utdyutkizeo45 F Height5 ft 10 in Twnugk084 lb BMI Qusgpragnq33.83 kg/m2 BSA Calculated2 Tobacco Useb) No Fall Screeninga) No falls within the last year Physical Exam Examination of the parotid, neck, and thyroid field shows no obvious evidence of any masses or adenopathies. He does have some left facial weakness mainly of the upper division. The intraoral exam is negative. The ear examination shows significant impacted dried up material on the left side. This was removed with small instruments. I could not appreciate any bone exposure. 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 There is a profound physical deformity, with asymmetry of the face. Function is compromised with oral incompetence, air escape, difficulty communicating with others, eye irritation, and visual field obstruction. Plan: We discussed options for treatment, including both injectable treatments, facial retraining, and surgical interventions. Each of these is is medically necessary. Treatment plan: doing well after primary grafting and 5-7 transfer. has done well with facial retraining. there is evidence of significant brow ptosis from frontalis paralysis and asymmetry of the brows. Offered brow ptosis repair to re-establish brow symmetry, improve visual field. The patient also requires a fascia annabelle sling to improve commissure symmetry as well as vestibular arch and oral competency History of Present Illness Referring Provider: HPI: KYMBERLY PICHARDO is a 66 year Non- or female who was referred for evaluation of facial paralysis. Onset: November 2020 Side: left side Severity: 5/6 Cause of paralysis: parotid lesion, oncocytic neoplasm, resection Primary concerns: brow ptosis, oral asymmetry, tearing Dry eye history: frequent tearing Previous interventions: eyelid weight (1g), 5-[address] Smart jump grafting A 14 organ review of systems was reviewed with the patient. Pertinent items are noted in HPI. She denies otalgia, odynophagia, dysphagia, dysarthria, voice changes, hemoptysis, or weight loss. Past, family, and social history obtained but not pertinent to current problem. Physical Exam General: Well-developed and well-nourished in appearance. Skin: No rashes or concerning lesions on the visible portions of the skin. Eyes: Extraocular movements intact. Visual shultz grossly normal. Ears: Pinna are normal in shape and position. External canals are patent. Nose: Dorsum is midline. Septum is midline and turbinates are normal on anterior rhinoscopy. Oral Cavity/Oropharynx: Dentition is intact. Mucous membranes moist. No masses or lesions. Tonsils are symmetric and non-obstructive. Neck: Midline trachea without masses or lesions. Thyroid is normal in size. Lymphatics: No palpable cervical lymphadenopathy Respiratory: No respiratory distress. Quiet breathing without stertor or stridor. Cardiovascular: Regular rate and rhythm. Warm extremities with equal pulses. Psych: Normal mood and affect. Judgement and insight appropriate. Neuro: Alert and oriented. CN II-XII grossly intact. No focal deficits. Musculoskeletal: Gait intact. Moves all extremities well without apparent deformities. 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) Impacted cerumen of left ear (380.4) (H61.22) 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) Trismus (781.0) (R25.2) Past Medical History History of No pertinent past surgical history (V49.89) (Z78.9) History of No significant past medical history Family History Family history of diabetes mellitus (V18.0) (Z83.3) Family history of malignant neoplasm of colon (V16.0) (Z80.0) Family history of Family history of leukemia (V16.6) (Z80.6) Social History Lives with Non-smoker (V49.89) (Z78.9) Pets/Animals: Cat Pets/Animals: Dog Retired from employment Allergies aspirin Recorded By: Michelle Albert; 11/05/2020 9:32:52 AM No Known Environmental Allergies Recorded By: Michelle Albert; 11/05/2020 9:32:52 AM No Known Food Allergies Recorded By: Michelle Albert; 11/05/2020 9:32:52 AM Current Meds Medication NameInstruction Calcium TABS Multivitamin Women TABS Vitals Vital Signs Recorded: 26Jan2022 12:08PM Rjwzecbjwqq24.3 F Height5 ft 10 in Mxczig010 lb BMI Rzxgpaclul71.11 kg/m2 BSA Calculated2.01 Tobacco Useb) No Fall Screeninga) No falls within the last year 'Scores and Scales' Signatures Electronically signed by : Jc Nick MD; Feb 04 2022 3:54PM EST (Author) Normal [facility] Office Visit Presurgicalon 0 01-26-2022 Office Visit Presurgical Diagnoses/Problems Assessed 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 There is a profound physical deformity, with asymmetry of the face. Function is compromised with oral incompetence, air escape, difficulty communicating with others, eye irritation, and visual field obstruction. Plan: We discussed options for treatment, including both injectable treatments, facial retraining, and surgical interventions. Each of these is is medically necessary. Treatment plan: doing well after primary grafting and 5-7 transfer. has done well with facial retraining. there is evidence of significant brow ptosis from frontalis paralysis and asymmetry of the brows. Offered brow ptosis repair to re-establish brow symmetry, improve visual field. The patient also requires a fascia annabelle sling to improve commissure symmetry as well as vestibular arch and oral competency History of Present Illness Referring Provider: HPI: KYMBERLY PICHARDO is a 66 year Non- or female who was referred for evaluation of facial paralysis. Onset: November 2020 Side: left side Severity: 5/6 Cause of paralysis: parotid lesion, oncocytic neoplasm, resection Primary concerns: brow ptosis, oral asymmetry, tearing Dry eye history: frequent tearing Previous interventions: eyelid weight (1g), 5-[address] Smart, jump grafting A 14 organ review of systems was reviewed with the patient. Pertinent items are noted in HPI. She denies otalgia, odynophagia, dysphagia, dysarthria, voice changes, hemoptysis, or weight loss. Past, family, and social history obtained but not pertinent to current problem. Physical Exam General: Well-developed and well-nourished in appearance. Skin: No rashes or concerning lesions on the visible portions of the skin. Eyes: Extraocular movements intact. Visual shultz grossly normal. Ears: Pinna are normal in shape and position. External canals are patent. Nose: Dorsum is midline. Septum is midline and turbinates are normal on anterior rhinoscopy. Oral Cavity/Oropharynx: Dentition is intact. Mucous membranes moist. No masses or lesions. Tonsils are symmetric and non-obstructive. Neck: Midline trachea without masses or lesions. Thyroid is normal in size. Lymphatics: No palpable cervical lymphadenopathy Respiratory: No respiratory distress. Quiet breathing without stertor or stridor. Cardiovascular: Regular rate and rhythm. Warm extremities with equal pulses. Psych: Normal mood and affect. Judgement and insight appropriate. Neuro: Alert and oriented. CN II-XII grossly intact. No focal deficits. Musculoskeletal: Gait intact. Moves all extremities well without apparent deformities. 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9) Pets/Animals: Cat Pets/Animals: Dog Retired from employment Allergies Medication aspirin Recorded By: Michelle Albert; 11/05/2020 9:32:52 AM NonMedication No Known Environmental Allergies Recorded By: Michelle Albert; 11/05/2020 9:32:52 AM No Known Food Allergies Recorded By: Michelle Albert; 11/05/2020 9:32:52 AM Current Meds Medication NameInstruction Calcium TABS Multivitamin Women TABS Vitals Vital Signs Recorded: 26Jan2022 12:08PM Kwfdftmospe29.3 F Height5 ft 10 in Yqwlnh892 lb BMI Npdjomoblb81.11 kg/m2 BSA Calculated2.01 Tobacco Useb) No Fall Screeninga) No falls within the last year 'Scores and Scales' Signatures Electronically signed (more content not included)... Normal [employer] Tobacco Screening.on Fall risk assessment a) No falls within the last year MG-Otolaryngol [facility] 4[address] Work Phone: Tobacco use status [facility] b) [facility]: TSH - Thyroid Stimulating Ho baljit, Serumon 11-18-2021 TSH Qn 1.81 m[IU]/L See Below MG-Otolaryng ol [facility] Work Phone: Comment on above: Reference Range: 0.4 4 - 3.98 TSH testing is performed using different testing methodology at [facility] than at other [facility]. Direct result comparisons should only be made within the same method. Tobacco Screening.on Fall risk assessment c) Not medically indicated [facility]-Otolaryngol [place] Work Phone: Tobacco use status [facility] b) No [facility]-Otolaryngol [facility] Work Phone: Tobacco Screening.on Fall risk assessment c) Not medically indicated [facility]-Otolaryngol [facility] Work Phone: Tobacco use status [facility] b) No [facility]-Otolaryngol [facility] Work Phone: Tobacco Screening.on 021 Fall risk assessment a) No falls within the last year [facility]tolaryngol [facility] Work Phone: Tobacco use status [facility] b) No [facility]-Otolaryngol [facility] Work Phone: GLUCOSE-POCTon 06-17-2021 Glucose [Mass/Vol] 99 mg/dL Normal 74 - 99 [facility] Comment on above: Performed By: #### G PREM #### [facility] [address] [place] [address] Laboratory - Chemistry and C hemistry - challengeon 06-17-2021 Glucose [Mass/Vol] 99 mg/dL 74 - 99 [facility] laryngol [facility] Work Phone: PET/CT Head And Neck Staging on 06-17-2021 PET+CT Guidance for localization of tumor of Head and Neck-- W 18F-FDG IV Normal [facility]: PET/CT WB HEAD AND NECK REST AGINGon 06-17-2021 PET/CT WB HEAD AND NECK RESTAGING Patient Name: KYMBERLY PICHARDO STUDY: PET/CT WB HEAD AND NECK RESTAGING; 06/17/2021 9:59 am INDICATION: f/u post treatment for parotid cancer. 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 Patient completed radiation therapy on 02/19/2021. COMPARISON: Outside PET study dated 12/31/2020 from [facility]. ACCESSION NUMBER(S): [id number] ORDERING CLINICIAN: TYREL CHRISTINA TECHNIQUE: DIVISION OF NUCLEAR MEDICINE POSITRON EMISSION TOMOGRAPHY (PET-CT) The patient received an intravenous dose of 12.85 mCi of Fluorine-18 fluorodeoxyglucose (FDG). Positron emission tomographic (PET) images from top of the skull to mid-thigh were then acquired after a one hour delay. Further images of the head and neck with the arms down were also obtained. Also acquired was a contemporaneous low dose noncontrast CT scan performed for attenuation correction of PET images and anatomic localization. The PET and CT images were digitally fused for display. All images were acquired on a combined PET-CT scanner unit. Some areas of FDG accumulation may be described in standardized uptake value (SUV) units. CODING: Subsequent Treatment Strategy (PS) CALIBRATION: Dose Ivcactnnd-mk-Nvmv Interval (mins): 72 Mediastinal bloodpool SUV (normal 1.5-2.5): 2.4 Blood glucose: 99 mg/dL FINDINGS: HEAD AND NECK: Evaluation of brain parenchyma is limited on FDG PET imaging secondary to diffuse brain uptake. Within this limitation, there is no evidence of hypermetabolic metastatic disease within the brain. Asymmetric activity is seen within the palatine tonsils, with no visible activity on the left in comparison to the right, which reflects interval change from the prior study. Current SUV of the right tonsil is 3.9, in comparison to my previous measurement of 5.2 in the same region on the prior PET scan, noting that without imaging parameters available on the old study, SUV calculations are of uncertain accuracy. The right tonsil does not appear to be abnormally enlarged, and this asymmetry could be due to interval postradiation changes of the left neck since the comparison PET scan. Similarly, there is no visible activity in the region of the left submandibular gland in comparison to the right, which is presumably postoperative in nature. There is new, asymmetric fullness of the left posterior pharyngeal soft tissues in comparison to the prior PET scan, with what appears to be effacement of the left piriform sinus. There is diffuse, mildly asymmetrically increased tracer metabolism in this region, with SUV 3.1. Asymmetric activity is present within the left sternocleidomastoid muscles, which presumably is due to the interval postradiation changes. There is no evidence for hypermetabolic lymphadenopathy to suggest susanne metastases. CHEST: A somewhat linear appearing parenchymal opacity previously seen in the left posterolateral lung is not appreciated on today's examination, indicating that it was likely infectious or inflammatory in etiology. There are no hypermetabolic pulmonary nodules and no evidence for malignant intensity lymphadenopathy within the chest. ABDOMEN AND PELVIS: No abnormal hypermetabolic lesions within the soft tissues of the abdomen or pelvis to suggest metastatic disease. Expected physiologic activity is present within the genitourinary tract and bowel loops. Expected activity is also present within the liver and spleen. MUSCULOSKELETAL: There is no evidence of hypermetabolic osseous lesions to suggest metastasis. Arthritic changes are scattered throughout the spinous processes of multiple vertebral body levels. Relative photopenia throughout the cervical spine is consistent with interval postradiation changes. IMPRESSION: 1. New asymmetric fullness in the left posterior pharyngeal soft tissues with relative effacement of the left piriform sinus and mild corresponding diffuse metabolism. Findings may simply reflect interval postradiation changes since the prior comparison PET/CT scan, but further clinical correlation is recommended. 2. Asymmetric activity in the parapharyngeal tonsils and submandibular gland, with no visible activity on the left side, respectively in comparison to the right, which is presumably due to post radiation and post surgical changes, respectively. 3. No evidence for distant metastases. This study was interpreted at [facility]. Electronically signed by: CHELSY MARTINEZ MD [facility] Tobacco Screening.on 021 Fall risk assessment a) No falls within the last year MP-Otolaryngol [facility] [address] [place] Work Phone: Tobacco use status [facility] b) No MP-Otolaryngol [facility] [address] [place] Work Phone: Tobacco Screening.on 021 Fall risk assessment c) Not medically indicated [facility]-Otolaryngol [facility] Work Phone: Tobacco use status [facility] b) No [facility]-Otolaryngol [facility] Work Phone: Tobacco Screening.on 021 Fall risk assessment a) No falls within the last year [facility]-Otolaryngol [facility] [address] [place] Work Phone: Tobacco use status [facility] b) No [facility]-Otolaryngol [facility] Work Phone: Tobacco Screening.on 021 Fall risk assessment a) No falls within the last year [facility] Work Phone: Tobacco use status [facility] b) No [facility]-Otolaryngol [facility] Work Phone: Tobacco Screening.on 021 Fall risk assessment c) Not medically indicated MG-Otolaryngol [place] Work Phone: Tobacco Screening. b) No MG-[place]ov[place] laryngol [place] Work Phone: .GFRon 10-29-2020 GFR 69 ml/min/1.73sqm Normal [facility] ([place]) Comment on above: Result Comment: GFR Population mean for , Non- Americans Ages 20-29 = 116 mL/min/1.73 sq.m. Ages 30-39 = 107 mL/min/1.73 sq.m. Ages 40-49 = 99 mL/min/1.73 sq.m. Ages 50-59 = 93 mL/min/1.73 sq.m. Ages 60-69 = 85 mL/min/1.73 sq.m. Ages 70+ = 75 mL/min/1.73 sq.m. Chronic Kidney Disease: Less than 60 mL/min/1.73 square meters End Stage Renal Disease: Less than 15 mL/min/1.73 square meters Performed By: #### G FR, CRE #### [place] [address] GFR Non- 57 ml/min/1.73sqm Normal [facility] ([place]) Comment on above: Result Comment: GFR Population mean for , Non- Americans Ages 20-29 = 116 mL/min/1.73 sq.m. Ages 30-39 = 107 mL/min/1.73 sq.m. Ages 40-49 = 99 mL/min/1.73 sq.m. Ages 50-59 = 93 mL/min/1.73 sq.m. Ages 60-69 = 85 mL/min/1.73 sq.m. Ages 70+ = 75 mL/min/1.73 sq.m. Chronic Kidney Disease: Less than 60 mL/min/1.73 square meters End Stage Renal Disease: Less than 15 mL/min/1.73 square meters Performed By: #### G FR, CRE #### [address] [address] CREon 10-29-2020 Creatinine [Mass/Vol] 0.99 mg/dL Normal 0.55-1.02 [facility] ([place]) Comment on above: Result Comment: Call ed result to Caleb in Radiology @10/29/2020 13:54:44 EST BP Performed By: #### G FR, CRE #### [facility] [address] [place] [address] SOFT TISSUE NECK W/ CONTR Andres 10-29-2020 CT SOFT TISSUE NECK W/ CONTRAST ORIGINAL Procedure: CT neck with intravenous contrast Clinical: Localized swelling, mass and lump LEFT side of neck Comparison: None. Technique: CT of the neck was performed following the uneventful administration 100 mL of Omnipaque 300 intravenous contrast. Axial images were obtained through the neck with multiplanar reformats. One or more of the following dose reduction techniques were used: automated exposure control. DICOM images are available. Findings: Soft tissues: No evidence of an abscess or drainable fluid collection. Aerodigestive tract: No primary lesion identified within the nasopharynx, oropharynx, hypopharynx, larynx, and proximal trachea. Salivary glands: A lobulated heterogeneously enhancing soft tissue mass is located in the superficial and deep LEFT parotid gland measuring 2.3 x 2.8 x 2.9 cm (AP, transverse, craniocaudal). 2 punctate calcifications the largest measuring 1.6 mm are identified within this mass. This finding is seen on axial image 23/86 and coronal image 37/76. Diagnostic considerations include benign epithelial tumors (pleomorphic adenoma, Warthin), malignant epithelial tumors, metastasis, and less likely lymphoma. Soft tissue correlation is advised. The RIGHT parotid gland is unremarkable. The bilateral submandibular glands are symmetric and unremarkable. Thyroid: Unremarkable. Lymph nodes: 11 mm LEFT level IIb lymph node is identified on axial image 33/86. A 9 mm LEFT level IIb lymph node is identified on axial image 32/86. Vessels: Unremarkable. Bones: The hard palate is prominent measuring 12 mm in craniocaudal dimension (sagittal 35/76). No fracture, aggressive appearing osteolytic or osteoblastic lesion. Moderate disc height loss involves C5-C6. A remote appearing mild compression deformity of the superior T3 vertebral body is noted. Visualized lung apices: The apices are clear. Visualized brain parenchyma: No acute pathology. Additional comment: None. Impression: 1. Lobulated heterogeneous enhancing soft tissue mass located in the superficial and deep LEFT parotid gland measuring 2.3 x 2.8 x 2.9 cm containing 2 punctate calcifications. Diagnostic considerations include benign and malignant epithelial tumors, metastasis and less likely lymphoma. Soft tissue correlation is advised. 2. 11 mm LEFT level IIb lymph node 3. Enlarged hard palate measuring 12 mm in craniocaudal dimension. Interpreted By: Frankie Godwin MD Preliminary Report By: Frankie Godwin MD Electronically Signed By: Frankie Godwin MD Dictated Date: 10/29/2020 7:28:34 PM Prelim Date: 10/29/2020 7:28:34 PM Sign Date: 10/29/2020 7:52:25 PM Ordering Provider:Lacho Garcia [facility] ([place]) COVID AB TOTALon 10-03-2020 COVID AB TOTAL NONREACTIVE Normal NONREACTIVE [facility] Comment on above: Result Comment: Resu lts from antibody testing should not be used to diagnose or exclude acute SARS-CoV-2 infection. Negative results do not preclude acute SARS-CoV-2 infection. If acute infection is suspected, direct testing for SARS-CoV-2 is necessary by PCR methodology. Positive results may be due to past or present infection with pmi-VQLK-JjZ-2 coronavirus strains, such as coronavirus HKU1, NL63, OC43, or 229E. Results of this assay should always be interpreted in conjunction with the patient's medical history, clinical presentation and other findings. This test has not been FDA cleared or approved. This test has been authroized by the FDA under an EUA for the use by authorized laboratories. This test is only authorized for the duration of the declaration that circumstances exist justifying the authorization of emergency use of in vitro diagnostics for detection of an/or diagnosis of COVID-19 under section 564 (b)(1) of the Act, 21 U.S.C 360bbb-3 (b)(1), unless the authorization is revoked sooner. Performed By: #### L [id number] #### [facility] [place] [address] CBC W/DIFFon 10-02-2020 BASO ABS 0.00 K/CU MM Normal 0-0.2 [facility] Comment on above: Performed By: #### L [id number] #### [facility] [address] [place] [address] Basophils/100 WBC (Bld) 0.6 % Normal 0-2 [facility] Comment on above: Performed By: #### L [id number] #### [facility] [address] [place] [address] EOS ABS 0.10 K/CU MM Normal 0-0.5 [facility] Comment on above: Performed By: #### L [id number] #### [facility] [address] [place] [address] Eosinophils/100 WBC (Bld) 2.2 % Normal 0-5 [facility] Comment on above: Performed By: #### L [id number] #### [facility] [address] [place] [address] Erythrocyte distribution width (RBC) [Ratio] 12.9 % Normal 11-14.5 [facility] Comment on above: Performed By: #### L [id number] #### [facility] [address] [place] [address] Hematocrit (Bld) [Volume fraction] 42.0 % Normal 35.0-47.0 [facility] Comment on above: Performed By: #### L [id number] #### [facility] [address] [place] [address] Hemoglobin (Bld) [Mass/Vol] 13.8 g/dL Normal 11.5-15.5 [facility] Comment on above: Performed By: #### L [id number] #### [facility] [address] [place] [address] IMMATR GRAN ABS 0.00 K/CU MM Normal Less than 2 [facility] Comment on above: Performed By: #### L [id number] #### [facility] [address] [place] [address] IMMATURE GRAN % 0.2 % Normal Less than 2 [facility] Comment on above: Performed By: #### L [id number] #### [facility] [address] [place] [address] Lymphocytes (Bld) [#/Vol] 2.00 K/CU MM Normal 0.9-4.4 [facility] Comment on above: Performed By: #### L [id number] #### [facility] [address] [place] [address] Lymphocytes/100 WBC (Bld) 31.7 % Normal 20-40 [facility] Comment on above: Performed By: #### L [id number] #### [facility] [address] [place] [address] MCHC (RBC) [Mass/Vol] 32.9 g/dL Normal 32.0-36.0 [facility] Comment on above: Performed By: #### L [id number] #### [facility] [address] [place] [address] MCV (RBC) [Entitic vol] 91.1 fL Normal 80.0-99.0 [facility] Comment on above: Performed By: #### L [id number] #### [facility] [address] [place] [address] MONO ABS 0.60 K/CU MM Normal 0.1-1.1 [facility] Comment on above: Performed By: #### L [id number] #### [facility] [address] [place] [address] Monocytes/100 WBC (Bld) 10.1 % High 2-10 [facility] Comment on above: Performed By: #### L [id number] #### [facility] [place] [address] NEUTROPHIL ABS 3.50 K/CU MM Normal 2.0-8.3 [facility] Comment on above: Performed By: #### L [id number] #### [facility] [address] [place] [address] Neutrophils/100 WBC (Bld) 55.2 % Normal 45-75 [facility] Comment on above: Performed By: #### L [id number] #### [facility] [address] [place] [address] Nucleated RBC/100 WBC (Bld) [Ratio] 0.0 % Normal Less than [address] [facility] Comment on above: Performed By: #### L [id number] #### [facility] [address] [place] [address] Platelet mean volume (Bld) [Entitic vol] 10.4 fL Normal 9.4-12.4 [facility] Comment on above: Performed By: #### L 200.17931 #### [facility] [address] [place] [address] Platelets (Bld) [#/Vol] 311 K/CU MM Normal 150-450 [facility] Comment on above: Performed By: #### L 200.04129 #### [facility] [address] [place] [address] 30713 RBC (Bld) [#/Vol] 4.61 M/CU MM Normal 3.90-5.30 [facility] Comment on above: Performed By: #### L 200.54326 #### [facility] [address] [place], [place] [id number] WBC (Bld) [#/Vol] 6.3 K/CUMM Normal 4.5-11.0 [facility] Comment on above: Performed By: #### L 200.92403 #### [facility] [address] [place] [address] [facility] Albumin [Mass/Vol] 4.0 g/dL Normal 3.2-5.0 [facility] Comment on above: Performed By: #### L 500.21773, L500.65248, L500.63238 #### [facility] [address] [place] [address]3397 Albumin/Globulin [Mass ratio] 1.4 {ratio} Normal 0.8-2.0 [facility] Comment on above: Performed By: #### L 500.75848, L500.90929, L500.23293 #### [facility] [address] [place] [address] ALK PHOS 87 U/L Normal 45-117 [facility] Comment on above: Performed By: #### L 500.60879, L500.76837, L500.29564 #### [facility] [address] [place] [address] 20359 ALT [Catalytic activity/Vol] 15 U/L Normal 13-61 [facility] Comment on above: Result Comment: RESU LTS MAY BE FALSELY DEPRESSED AFTER THE ADMINISTRATION OF SULFASALAZINE AND/OR SULFAPYRIDINE. Performed By: #### L 500.12206, L500.48909, L500.19609 #### [facility] [place] [address] Anion gap [Moles/Vol] 4 mmol/L Low 5-16 [facility] Comment on above: Performed By: #### L 500.90808, L500.27609, L500.98666 #### [facility] [address] [place] [address] 13344 BILI TOTAL 0.50 MG/DL Normal 0.2-1.0 [facility] Comment on above: Performed By: #### L 500.04026, L500.49052, L500.63602 #### [facility] [address] [place] [address] Calcium [Mass/Vol] 10.1 mg/dL Normal 8.5-10.5 [facility] Comment on above: Result Comment: NOTE NEW NORMAL RANGE DUE TO REAGENT CHANGE Performed By: #### L 500.75008, L500.28613, L500.92771 #### [facility] [address] [place] [address] Chloride [Moles/Vol] 107 mmol/L Normal 98-107 [facility] Comment on above: Performed By: #### L 500.82411, L500.90208, L500.64822 #### [facility] [address] [place] [address] CO2 [Moles/Vol] 30.0 mmol/L Normal 21-32 [facility] Comment on above: Performed By: #### L 500.99556, L500.73158, L500.12578 #### [facility] [address] [place] [address] Creatinine [Mass/Vol] 0.95 mg/dL Normal 0.510-0.[address] [facility] Comment on above: Result Comment: Bonnie ents receiving either N-Acetylcysteine (NAC) or Metamizole prior to venipuncture, may have falsely depressed results. Performed By: #### L 500.83981, L500.00643, L500.36068 #### [facility] [address] [place], [place] [id number] Globulin (S) [Mass/Vol] 2.8 g/dL Normal 2.2-4.2 [facility] Comment on above: Performed By: #### L 500.92986, L500.08531, L500.71979 #### [facility] [address] [place] [address] Glucose [Mass/Vol] 96 mg/dL Normal 70-100 [facility] Comment on above: Result Comment: 70-1 00- Normal Fasting; 100-125 Impaired Fasting; greater than 126 on more than one result- Diabetes. ADA guidelines. Results may be falsely elevated after the administration of Sulfapyridine. Results may be falsely depressed after the administration of Sulfasalazine. Performed By: #### L 500.45438, L500.07109, L500.13297 #### [facility] [address] [place] [address] Potassium [Moles/Vol] 4.4 mmol/L Normal 3.5-5.1 [facility] Comment on above: Performed By: #### L 500.00933, L500.90090, L500.33644 #### [facility] [address] [place] [address] Protein [Mass/Vol] 6.8 g/dL Normal 6.0-8.5 [facility] Comment on above: Performed By: #### L 500.72152, L500.16518, L500.77899 #### [facility] [address] [place] [address] SGOT (AST) 15 U/L Normal 8-34 [facility] Comment on above: Result Comment: RESU LTS MAY BE FALSELY DEPRESSED AFTER THE ADMINISTRATION OF SULFASALAZINE AND/OR SULFAPYRIDINE. Performed By: #### L 500.31139, L500.16421, L500.84555 #### [facility] [address] [place] [address] Sodium [Moles/Vol] 141 mmol/L Normal 136-145 [facility] Comment on above: Performed By: #### L 500.77209, L500.45693, L500.76612 #### [facility] [address] [place] [address] Urea nitrogen [Mass/Vol] 17 mg/dL Normal 7-26 [facility] Comment on above: Performed By: #### L 500.88186, L500.48712, L500.71283 #### [facility] [address] [place] [address] Urea nitrogen/Creatinine [Mass ratio] 18 mg/mg Normal 15-24 [facility] Comment on above: Performed By: #### L 500.24176, L500.45276, L500.88580 #### [facility] [address] [place] [address] GFR ESTon 10-02-2020 IF AMER Greater than 60 Normal [facility] Comment on above: Performed By: #### L 500.95364, L500.98183, L500.19642 #### [facility] [address] [place] [address] IF non-AFR AMER 59 Normal [facility] Comment on above: Performed By: #### L 500.37014, L500.06147, L500.72779 #### [facility] [address] [place] [address] LIPIDon 10-02-2020 Cholesterol [Mass/Vol] 233 MG/dL High 0-199 [facility] Comment on above: Performed By: #### L 500.39618, L500.51882, L500.94092 #### [facility] [address] [place], [place] [address] Cholesterol in HDL [Mass/Vol] 78 mg/dL Normal GREATER THAN 40 [facility] Comment on above: Result Comment: Bonnie ents receiving Metamizole prior to venipuncture, may have falsely depressed results. Performed By: #### L 500.06450, L500.85946, L500.25270 #### [facility] [address] [place] [address] Cholesterol in LDL [Mass/Vol] 135 mg/dL Normal [facility] Comment on above: Result Comment: ___C HOLESTEROL/HDL RATIO RISK___ CHD RISK = Total CHOL LDL HDL (CHOL/HDL) Recommended <200 <130 >40 <3.4 Borderline 200-239 130-159 3.4-4.99 High >240 >160 >5.0 Performed By: #### L 500.09913, L500.06932, L500.85084 #### [facility] [address] [place] [address] Triglyceride [Mass/Vol] 101 mg/dL Normal 30-149 [facility] Comment on above: Result Comment: Bonnie ents receiving either N-Acetylcysteine (NAC) or Metamizole prior to venipuncture, may have falsely depressed results. Performed By: #### L 500.74882, L500.33793, L500.44486 #### [facility] [address] [place] [address] Vital Signs Date Time Vital Sign Value Performing Clinician Facility 06-04-2025 08:11-0400 Body height 177.[address] Maldonado Dash MD Work Phone: [facility] 06-04-2025 08:11-0400 Body mass index (BMI) [Ratio] 30.1 kg/m2 Dr. Maldonado Dash MD Work Phone: [facility] 06-04-2025 08:11-0400 Body temperature 97.1 [degF] Dr. Maldonado Dash MD Work Phone: [facility] 06-04-2025 08:11-0400 Body weight 95.[address] Maldonado Dash MD Work Phone: [facility] 06-04-2025 08:11-0400 Diastolic blood pressure 70 mm[Hg] Dr. Maldonado Dash MD Work Phone: [facility] 06-04-2025 08:11-0400 Heart rate 64 /min Dr. Maldonado Dash MD Work Phone: [facility] 06-04-2025 08:11-0400 Respiratory rate 16 /min Dr. Maldonado Dash MD Work Phone: [facility] 06-04-2025 08:11-0400 SaO2% (BldA) [Mass fraction] 96 % Dr. Maldonado Dash MD Work Phone: [facility] 06-04-2025 08:11-0400 Systolic blood pressure 118 mm[Hg] Dr. Maldonado Dash MD Work Phone: [facility] 05-03-2025 16:11-0400 Body height 177.[address] Maldonado Dash MD Work Phone: [facility] 05-03-2025 16:11-0400 Body mass index (BMI) [Ratio] 30.9 kg/m2 Dr. Maldonado Dash MD Work Phone: [facility] 05-03-2025 16:11-0400 Body temperature 97.9 [degF] Dr. Maldonado Dash MD Work Phone: [facility] 05-03-2025 16:11-0400 Body weight 97.[address] Maldonado Dash MD Work Phone: [facility] 05-03-2025 16:11-0400 Diastolic blood pressure 74 mm[Hg] Dr. Maldonado Dash MD Work Phone: [facility] 05-03-2025 16:11-0400 Heart rate 72 /min Dr. Maldonado Dash MD Work Phone: [facility] 05-03-2025 16:11-0400 Respiratory rate 14 /min Dr. Maldonado Dash MD Work Phone: [facility] 05-03-2025 16:11-0400 SaO2% (BldA) [Mass fraction] 98 % Dr. Maldonado Dash MD Work Phone: [facility] 05-03-2025 16:11-0400 Systolic blood pressure 118 mm[Hg] Dr. Maldonado Dash MD Work Phone: [facility] 01-16-2025 12:03-0400 Body height 175.3 cm Tyrel Christina MD Work Phone: [facility] 01-16-2025 12:03-0400 Body mass index (BMI) [Ratio] 31.9 kg/m2 Tyrel Christina MD Work Phone: [facility] 01-16-2025 12:03-0400 Body weight 97.98 kg Tyrel Christina MD Work Phone: [facility] 01-18-2024 11:51-0400 Body height 177.8 cm Tyrel Christina MD Work Phone: [facility] 01-18-2024 11:51-0400 Body mass index (BMI) [Ratio] 30.13 kg/m2 Tyrel Christina MD Work Phone: [facility] 01-18-2024 11:51-0400 Body weight 95.25 kg Tyrel Christina MD Work Phone: [facility] 07-20-2023 12:29-0400 Body height 177.8 cm Tyrel Christina MD Work Phone: [facility] 07-20-2023 12:29-0400 Body mass index (BMI) [Ratio] 28.84 kg/m2 Tyrel Christina MD Work Phone: [facility] 07-20-2023 12:29-0400 Body weight 91.17 kg Tyrel Christina MD Work Phone: [facility] 01-19-2023 12:34-0400 Body height 177.8 cm Efewongbe B Oleghe Work Phone: [facility] [place] Work Phone: 01-19-2023 12:34-0400 Body mass index (BMI) [Ratio] 27.58 kg/m2 Efewongbe B Oleghe Work Phone: [facility] [place] Work Phone: 01-19-2023 12:34-0400 Body surface area Derived from formula 2.05 m2 Efewongbe B Oleghe Work Phone: [facility] [place] Work Phone: 01-19-2023 12:34-0400 Body weight 87.18 kg Efewongbe B Oleghe Work Phone: [facility] [place] Work Phone: 01-19-2023 12:34-0400 0 1 Efewongbe B Oleghe Work Phone: [facility] [place] Work Phone: Comment on above: [facility] 10-26-2022 10:11-0500 Body height 177.[address] Maldonado Dash Work Phone: [facility] 10-26-2022 10:08-0500 Body mass index (BMI) [Ratio] 27.9 kg/m2 Dr. Maldonado Dash Work Phone: [facility] 10-26-2022 10:08-0500 Body temperature 96.8 [degF] Dr. Maldonado Dash Work Phone: [facility] 10-26-2022 10:08-0500 Body weight 88.[address] Maldonado Dash Work Phone: [facility] 10-26-2022 10:08-0500 Diastolic blood pressure 70 mm[Hg] Dr. Maldonado Dash Work Phone: [facility] 10-26-2022 10:08-0500 Heart rate 70 /min Dr. Maldonado Dash Work Phone: [facility] 10-26-2022 10:08-0500 Respiratory rate 16 /min Dr. Maldonado Dash Work Phone: [facility] 10-26-2022 10:08-0500 SaO2% (BldA) [Mass fraction] 97 % Dr. Maldonado Dash Work Phone: [facility] 10-26-2022 10:08-0500 Systolic blood pressure 121 mm[Hg] Dr. Maldonado Dash Work Phone: [facility] 07-21-2022 13:17-0400 Body height 177.8 cm Maldonado Dash Work Phone: [facility] Work Phone: 07-21-2022 13:17-0400 Body mass index (BMI) [Ratio] 26.85 kg/m2 Maldonado Mckeoneboniee Work Phone: [facility] [place] Work Phone: 07-21-2022 13:17-0400 Body surface area Derived from formula 2.03 m2 Maldonado Mckeoneboniee Work Phone: [facility] [place] Work Phone: 07-21-2022 13:17-0400 Body weight 84.88 kg Maldonado Mckeoneboniee Work Phone: -[facility] [place] Work Phone: 07-21-2022 13:17-0400 0 1 Maldonado Mckeonmatthew Work Phone: [facility] [place] Work Phone: Comment on above: [facility] 07-20-2022 14:08-0400 Body height 177.[address] Maldonado Dash Work Phone: [facility] Work Phone: 07-20-2022 14:00-0400 Body mass index (BMI) [Ratio] 27 kg/m2 Dr. Maldonado Dash Work Phone: [facility] 07-20-2022 14:00-0400 Body weight 85.[address] Maldonado Dash Work Phone: [facility] 07-20-2022 14:00-0400 Diastolic blood pressure 86 mm[Hg] Dr. Maldonado Dash Work Phone: [facility] 07-20-2022 14:00-0400 Systolic blood pressure 132 mm[Hg] Dr. Maldonado Dash Work Phone: [facility] 07-10-2022 10:35-0400 Body height 177.8 cm Maldonado Anguianoe Work Phone: [facility] [place] Work Phone: 07-10-2022 10:35-0400 Body mass index (BMI) [Ratio] 26.46 kg/m2 Maldonado Anguianoe Work Phone: [facility] [place] Work Phone: 07-10-2022 10:35-0400 Body surface area Derived from formula 2.02 m2 Maldonado Anguianoe Work Phone: [facility] [place] Work Phone: 07-10-2022 10:35-0400 Body weight 83.66 kg Maldonado Anguianoe Work Phone: [facility] [place] Work Phone: 07-10-2022 10:35-0400 0 1 Maldonado Dash Work Phone: [facility] [place] Work Phone: Comment on above: [facility] 06-22-2022 09:43-0400 Body mass index (BMI) [Ratio] 26.7 kg/m2 Dr. Maldonado Dash Work Phone: [facility] Work Phone: 06-22-2022 09:43-0400 Body temperature 97.8 [degF] Dr. Maldonado Dash Work Phone: [facility] Work Phone: 06-22-2022 09:43-0400 Body weight 84.[address] Maldonado Dash Work Phone: [facility] Work Phone: 06-22-2022 09:43-0400 Diastolic blood pressure 78 mm[Hg] Dr. Maldonado Dash Work Phone: [facility] Work Phone: 06-22-2022 09:43-0400 Heart rate 75 /min Dr. Maldonado Dash Work Phone: [facility] Work Phone: 06-22-2022 09:43-0400 Respiratory rate 16 /min Dr. Maldonado Dash Work Phone: [facility] Work Phone: 06-22-2022 09:43-0400 SaO2% (BldA) [Mass fraction] 99 % Dr. Maldonado Dash Work Phone: [facility] Work Phone: 06-22-2022 09:43-0400 Systolic blood pressure 127 mm[Hg] Dr. Maldonado Dash Work Phone: [facility] Work Phone: 03-27-2022 10:42-0400 Body height 177.8 cm Maldonado Fritz Mikee Work Phone: [facility] [place] Work Phone: 03-27-2022 10:42-0400 Body mass index (BMI) [Ratio] 25.74 kg/m2 Maldonado Fritz Silvioe Work Phone: [facility] [place] Work Phone: 03-27-2022 10:42-0400 Body surface area Derived from formula 1.99 m2 mariajoseracquel Catrina Anguianoe Work Phone: -[facility] [place] Work Phone: 03-27-2022 10:42-0400 Body temperature 97.4 [degF] Maldonado Fritz Silvioe Work Phone: [facility] [place] Work Phone: 03-27-2022 10:42-0400 Body weight 81.37 kg Efewongbe B Oleghe Work Phone: [facility] Work Phone: 03-27-2022 10:42-0400 0 1 Efewongbe B Oleghe Work Phone: [facility] Work Phone: Comment on above: [facility] 03-16-2022 14:08-0400 Body height 177.8 cm Efewongbe B Oleghe Work Phone: [facility] [address] Work Phone: 03-16-2022 14:08-0400 Body mass index (BMI) [Ratio] 25.25 kg/m2 Efewongbe B Oleghe Work Phone: [facility] [address] Work Phone: 03-16-2022 14:08-0400 Body surface area Derived from formula 1.98 m2 Efewongbe B Oleghe Work Phone: [facility] [address] Work Phone: 03-16-2022 14:08-0400 Body temperature 96.4 [degF] Efewongbe B Oleghe [facility] Work Phone: 03-16-2022 14:08-0400 Body weight 79.83 kg Efewongbe B Oleghe Work Phone: [facility] [address] Work Phone: 2022 14:49-0400 Body height 177.8 cm Efewongbe B Oleghe Work Phone: [facility] [place] Work Phone: 2022 14:49-0400 Body mass index (BMI) [Ratio] 25.83 kg/m2 Maldonado Dash Work Phone: [facility] [place] Work Phone: 2022 14:49-0400 Body surface area Derived from formula 2 m2 Maldonado Dash Work Phone: [facility] [place] Work Phone: 2022 14:49-0400 Body temperature 97 [degF] Maldonado Dash Work Phone: [facility] [place] Work Phone: 2022 14:49-0400 Body weight 81.65 kg Maldonado Dash Work Phone: [facility] [place] Work Phone: 01-26-2022 12:08-0400 Body height 177.8 cm Lacho Leavitt Work Phone: [facility] [address] Work Phone: 01-26-2022 12:08-0400 Body mass index (BMI) [Ratio] 26.11 kg/m2 Lacho Leavitt Work Phone: [facility] [address] Work Phone: 01-26-2022 12:08-0400 Body surface area Derived from formula 2.01 m2 Lacho Leavitt Work Phone: [facility] [address] Work Phone: 01-26-2022 12:08-0400 Body temperature 97.3 [degF] Lacho Leavitt Work Phone: [facility] [address] Work Phone: 01-26-2022 12:08-0400 Body weight 82.56 kg Lacho Leavitt Work Phone: [facility] [address] Work Phone: 12-22-2021 10:08-0400 Body temperature 98.2 [degF] Dr. Lacho Leavitt Work Phone: [facility] Work Phone: 12-22-2021 10:08-0400 Body weight 83.[address] Lacho Leavitt Work Phone: [facility] Work Phone: 12-22-2021 10:08-0400 Diastolic blood pressure 78 mm[Hg] Dr. Lacho Leavitt Work Phone: [facility] Work Phone: 12-22-2021 10:08-0400 Heart rate 77 /min Dr. Lacho Leavitt Work Phone: [facility] Work Phone: 12-22-2021 10:08-0400 Respiratory rate 14 /min Dr. Lacho Leavitt Work Phone: [facility] Work Phone: 12-22-2021 10:08-0400 SaO2% (BldA) [Mass fraction] 99 % Dr. Lacho Leavitt Work Phone: [facility] Work Phone: 12-22-2021 10:08-0400 Systolic blood pressure 123 mm[Hg] Dr. Lacho Leavitt Work Phone: [facility] Work Phone: 11-18-2021 14:13-0500 Body height 177.8 cm Lacho Leavitt Work Phone: [facility] [place] Work Phone: 11-18-2021 14:13-0500 Body mass index (BMI) [Ratio] 25.97 kg/m2 Lacho Leavitt Work Phone: [facility] [place] Work Phone: 11-18-2021 14:13-0500 Body surface area Derived from formula 2 m2 Lacho Roseon Work Phone: [facility] [place] Work Phone: 11-18-2021 14:13-0500 Body weight 82.1 kg Lacho Leavitt Work Phone: [facility] [place] Work Phone: 08-05-2021 15:05-0500 Body height 177.8 cm Lacho Leavitt Work Phone: [facility] [place] Work Phone: 08-05-2021 15:05-0500 Body mass index (BMI) [Ratio] 25.83 kg/m2 Lacho Leavitt Work Phone: [facility] [place] Work Phone: 08-05-2021 15:05-0500 Body surface area Derived from formula 2 m2 Lacho Leavitt Work Phone: [facility] [place] Work Phone: 08-05-2021 15:05-0500 Body temperature 97.4 [degF] Lacho Leavitt Work Phone: [facility] [place] Work Phone: 08-05-2021 15:05-0500 Body weight 81.65 kg Lacho Leavitt Work Phone: [facility] [place] Work Phone: 07-30-2021 10:25-0400 Body height 177.8 cm Lacho Roseon Work Phone: [facility] [place] Work Phone: 07-30-2021 10:25-0400 Body mass index (BMI) [Ratio] 25.83 kg/m2 Lacho Roseon Work Phone: [facility] [place] Work Phone: 07-30-2021 10:25-0400 Body surface area Derived from formula 2 m2 Lacho Roseon Work Phone: [facility] [place] Work Phone: 07-30-2021 10:25-0400 Body temperature 97 [degF] Lacho Leavitt Work Phone: [facility] [place] Work Phone: 07-30-2021 10:25-0400 Body weight 81.64 kg Lacho Leavitt Work Phone: [facility] [place] Work Phone: 07-30-2021 10:25-0400 Respiratory rate 16 /min Lacho Leavitt Work Phone: [facility] [place] Work Phone: 06-17-2021 10:33-0400 Body height 177.8 cm Lacho Leavitt Work Phone: [facility] [place] [address] [place] Work Phone: 06-17-2021 10:33-0400 Body mass index (BMI) [Ratio] 25.91 kg/m2 Lacho Leavitt Work Phone: [facility] [place] [address] [place] Work Phone: 06-17-2021 10:33-0400 Body surface area Derived from formula 2 m2 Lacho Leavitt Work Phone: [facility] [place] [address] [place] Work Phone: 06-17-2021 10:33-0400 Body temperature 97 [degF] Lacho Leavitt Work Phone: [facility] [place] [address] [place] Work Phone: 06-17-2021 10:33-0400 Body weight 81.9 kg Lacho Leavitt Work Phone: [facility] [place] [address] [place] Work Phone: 06-17-2021 10:33-0400 Respiratory rate 16 /min Lacho Leavitt Work Phone: [facility] [place] [address] [place] Work Phone: 05-06-2021 17:56-0400 Body height 177.8 cm Lacho Leavitt Work Phone: [facility] [place] Work Phone: 05-06-2021 17:56-0400 Body mass index (BMI) [Ratio] 26.83 kg/m2 Lacho Leavitt Work Phone: [facility] [place] Work Phone: 05-06-2021 17:56-0400 Body surface area Derived from formula 2.03 m2 Lacho Leavitt Work Phone: [facility] [place] Work Phone: 05-06-2021 17:56-0400 Body temperature 96.7 [degF] Lacho Leavitt Work Phone: [facility] [place] Work Phone: 05-06-2021 17:56-0400 Body weight 84.82 kg Lacho Leavitt Work Phone: [facility] [place] Work Phone: 04-08-2021 09:46-0400 Body height 177.8 cm Lacho Leavitt Work Phone: [facility] [place] [address] [place] Work Phone: 04-08-2021 09:46-0400 Body mass index (BMI) [Ratio] 27.52 kg/m2 Lacho Leavitt Work Phone: [facility] [place] [address] [place] Work Phone: 04-08-2021 09:46-0400 Body surface area Derived from formula 2.05 m2 Lacho Leavitt Work Phone: [facility] [place] [address] [place] Work Phone: 04-08-2021 09:46-0400 Body temperature 97.3 [degF] Lacho Leavitt Work Phone: [facility] [place] [address] [place] Work Phone: 04-08-2021 09:46-0400 Body weight 87 kg Lacho Leaivtt Work Phone: -[facility] [place] [address] [place] Work Phone: 04-08-2021 09:46-0400 Heart rate 68 /min Lacho Leavitt Work Phone: [facility] [place] [address] [place] Work Phone: 04-08-2021 09:46-0400 SaO2% (BldA) [Mass fraction] 99 % Lacho Leavitt Work Phone: [facility] [place] [address] [place] Work Phone: 03-11-2021 10:58-0400 Body height 177.8 cm Lacho Leavitt Work Phone: [facility] [place] [address] [place] Work Phone: 03-11-2021 10:58-0400 Body mass index (BMI) [Ratio] 28.5 kg/m2 Lacho Leavitt [facility] Phone: [facility] [place] Work Phone: 03-11-2021 10:58-0400 Body surface area Derived from formula 2.08 m2 Lacho Leavitt Work Phone: [facility] [address] [place] Work Phone: 03-11-2021 10:58-0400 Body temperature 97.9 [degF] Lacho Leavitt Work Phone: [place] [address] [place] Work Phone: 03-11-2021 10:58-0400 Body weight 90.1 kg Lacho Leavitt Work Phone: [place] [address] [place] Work Phone: 03-11-2021 10:58-0400 Heart rate 82 /min Lacho Leavitt Work Phone: [place] [address] [place] Work Phone: 03-11-2021 10:58-0400 SaO2% (BldA) [Mass fraction] 99 % Lacho Leavitt Work Phone: [place] [address] [place] Work Phone: 02-18-2021 11:54-0400 Body height 177.8 cm Lacho Leavitt Work Phone: [facility] Work Phone: 02-18-2021 11:54-0400 Body mass index (BMI) [Ratio] 28.7 kg/m2 Lacho Leavitt Work Phone: [facility] [place] Work Phone: 02-18-2021 11:54-0400 Body surface area Derived from formula 2.09 m2 Lacho Leavitt Work Phone: [facility] [place] Work Phone: 02-18-2021 11:54-0400 Body temperature 97 [degF] Lacho Leavitt Work Phone: [facility] [place] Work Phone: 02-18-2021 11:54-0400 Body weight 90.72 kg Lacho Leavitt Work Phone: [facility] [place] Work Phone: 12-24-2020 13:08-0400 BMI (Body Mass Index) 30.71 kg/m2 [facility] [facility] Work Phone: 12-24-2020 13:08-0400 Body Temperature 96.4 [degF] [facility] [facility] Work Phone: 12-24-2020 13:08-0400 Body weight 97.07 kg [facility] [facility] Work Phone: 12-24-2020 13:08-0400 BSA (Body Surface Area) 2.15 m2 [facility] [facility] Work Phone: 12-24-2020 13:08-0400 Height 177.8 cm [facility] [facility] Work Phone: 12-17-2020 15:38-0400 BMI (Body Mass Index) 30.78 kg/m2 [facility] [facility] Work Phone: 12-17-2020 15:38-0400 Body Temperature 98.2 [degF] [facility] [facility] Work Phone: Comment on above: Method: Temporal 12-17-2020 15:38-0400 Body weight 97.3 kg [facility] [facility] Work Phone: 12-17-2020 15:38-0400 BSA (Body Surface Area) 2.15 m2 [facility] [facility] Work Phone: 12-17-2020 15:38-0400 Height 177.8 cm [facility] [facility] Work Phone: 12-17-2020 15:38-0400 Pulse (Heart Rate) 80 /min [facility] [facility] Work Phone: 12-17-2020 15:38-0400 Pulse Oximetry 100 % [facility] [facility] Work Phone: Comment on above: Source: Non-Rebreather Encounters Encounter Date Encounter Type Care Provider Facility Start: 06-11-[address] Herb Saldana DO -Radiology [facility] Work Phone: Start: 06-11-2025 ambulatory Herb Saldana Facility: [facility] Start: 06-04-[address] Gonzalo Dash MD Work Phone: [facility] Start: 06-04-2025 End: 06-04-[address] Maldonado Dash MD [facility] Work Phone: Start: 06-04-2025 End: 06-04-[address] Maldonado Dash MD [facility] Start: 06-04-2025 End: 06-04-[address] Maldonado Dash MD Work Phone: [facility] Start: 06-04-2025 End: 06-04-2025 ambulatory Maldonado Dash Facility:[facility] Start: 05-03-2025 End: 05-03-2025 Patient encounter procedure Simran RUSSELL -[facility] Work Phone: Start: 05-03-2025 End: 05-03-[address] Maldonado Dash MD Work Phone: [facility] Start: 03-27-2025 Non-patient / Non-visit Dr. 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); Impacted cerumen of left ear Start: 08-10-2024 End: 08-10-2024 ambulatory [facility] Facility:[facility] Start: 08-04-2024 End: 08-04-2024 ambulatory [facility] Facility:[facility] Start: 08-02-2024 End: 08-02-2024 ambulatory [facility] Facility:[facility] Start: 07-10-2024 End: 07-10-2024 ambulatory Herb Seminole Facility:[facility] Start: 07-04-2024 End: 07-04-2024 ambulatory [facility] Facility:[facility] Start: 01-18-2024 End: 01-18-2024 Office outpatient visit 15 minutes Tyrel Christina MD Work Phone: [facility] Comment on above: 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 Maldonado Dash Facility:[id number] Start: 01-19-2023 AUDIT Maldonado Cline egmichelle Work Phone: SJ-Xdodrjczbrdoyd-Wiciz bharati Work Phone: Start: 10-26-2022 End: 10-26-[address] Maldonado Dash Work Phone: [facility] Work Phone: Start: 10-26-2022 End: 10-26-[address] Maldonado Dash Work Phone: [facility]-Speech Therapy Start: 10-26-2022 End: 10-26-[address] Maldonado Dash Work Phone: [facility] Start: 08-06-2022 End: 08-06-[address] Maldonado Dash Work Phone: [facility] Work Phone: Start: 08-06-2022 End: 08-06-[address] Maldonado Dash Work Phone: [facility]-Outpatient Bone Densitometry Start: 07-23-2022 Chart Update Maldonado Cline egmichelle Work Phone: OK-Dciilpmgppsauq-Deqdb bharati Work Phone: Start: 07-21-2022 ambulatory MD TYREL CHRISTINA Fac ility:[id number] Start: 07-21-2022 Office outpatient vi sit 15 minutes Maldonado Anguianoe Work Phone: MO-Dbnqtzqesqhous-Gzfqr bharati Work Phone: Start: 07-20-2022 End: 07-20-[address] Maldonado Dash Work Phone: [facility] Start: 07-10-2022 Office outpatient vi sit 10 minutes Maldonado Dash Work Phone: KQ-Aeisfwsuofhuzv-Cvihj bharati Work Phone: Start: 07-10-[address] Jc Nick Facility:[id number] Start: 06-22-2022 End: 06-22-[address] Maldonado Dash Work Phone: [facility] Start: 05-26-2022 End: 05-26-[address] Maldonado Dash Work Phone: [facility]-Radiology, [facility] Start: 05-18-2022 End: 05-18-2022 ambulatory [facility] Work Phone: Start: 05-18-2022 End: 05-18-2022 Patient encounter procedure [facility]-Outpatient Breast Imaging Start: 04-06-2022 Registered Recurring [facility]-Speech Therapy Start: 03-27-2022 Postop follow up vis it related to original px Efewongbe B Oleghe Work Phone: VY-Xaylfhgadqmzne-Bnrlg bharati Work Phone: Start: 03-27-[address] Breezy Elliott Facility:[id number] Start: 03-16-2022 Patient encounter procedure Maldonado Dash Work Phone: TI-Hjqvmpypefavoa-Xltcf in [facility] 4100 Work Phone: Start: 03-16-2022 Postop follow up vis it related to original px Efewongbe B Oleghe Work Phone: ZM-Uoywyeukwtiody-Cnokc bharati Work Phone: Start: 03-16-[address] Jc Nick Facility:[id number] Start: 03-10-2022 [facility], Provider: Jc Nick, Status: Pen, Time: 9:00 AM Efewongbe B Oleghe Work Phone: SJ-Jkmxwsocknfyvz-Ffulj bharati Work Phone: Start: 03-10-2022 End: 03-10-[address] Jc Nick Facility:[facility] Start: 03-09-2022 Chart Update Efewongbe B Ol eghe Work Phone: RN-Oebkwqbtjzpkiz-Ubtea bharati Work Phone: Start: 03-02-[address] Jc Nick Facility:[facility] Start: 03-02-2022 Encounter for blood typing Dr. Jc Nick [facility] Start: 03-02-2022 Encounter for preprocedural cardiovascular examination Dr. Jc Nick [facility] Start: 03-02-2022 Encounter for preprocedural laboratory examination Dr. Jc Nick [facility] Start: 03-02-2022 AUDIT Efewongbe B Ol eghe Work Phone: AU-Uuphiucafopzcc-Zmu for Perioperative Med Work Phone: Start: 2022 Office outpatient vi sit 15 minutes Efewongbe B Oleghe Work Phone: BL-Lqlupxbehapaek-Zqdmx bharati Work Phone: Start: [address] Lacho Leavitt Facility:[id number] Start: 02-10-2022 End: 02-10-[address] Lacho Leavitt Work Phone: [facility] Start: 02-10-[address] Daly Leavitt Work Phone: [facility] Start: 01-26-2022 Patient encounter procedure Lacho Leavitt Work Phone: JU-Xdvbmtgkrjsqmp-Qmxha in [facility] 4100 Work Phone: Start: 01-26-[address] Jc Morales [facility] Facility:[id number] Start: 12-22-2021 End: 12-22-[address] Lacho Leavitt Work Phone: [facility] Start: 11-19-2021 Chart Update Lacho conde Work Phone: GT-Jqiuakwvgcoyuk-Pduzd bharati Work Phone: Start: 11-18-2021 Office outpatient vi sit 15 minutes Lacho Leavitt Work Phone: HO-Gmxiiorjriarxs-Ntdgu bharati Work Phone: Start: 11-11-2021 End: 11-11-[address] Lacho Leavitt [facility] Start: 08-05-2021 Office outpatient vi sit 15 minutes Lacho Leavitt Work Phone: DC-Hlapguoeojfmbk-Dxekc bharati Work Phone: Start: 07-30-2021 Office outpatient vi sit 25 minutes Lacho Leavitt Work Phone: QV-Lwcxbhefhgyowh-Tixys bharati Work Phone: Start: 07-30-2021 Patient encounter procedure Lacho Leavitt Work Phone: NC-Yxrdnkwtesxfcp-Chqmt an Work Phone: Start: 06-17-2021 Chart Update Lacho conde Work Phone: PH-Hvjiiifjaqvfxf-Uehfa ban Work Phone: Start: 06-17-2021 Current tobacco non- user cad cap copd pv dm Lacho Leavitt Work Phone: IZ-Dvqdzkgefrlons-Pqrtf 205 [place] Work Phone: Start: 05-13-2021 AUDIT Lacho García n Work Phone: EP-Poztyrnzpeqeuv-Svcxv an Work Phone: Start: 05-06-2021 Office outpatient vi sit 15 minutes Lacho Leavitt Work Phone: NQ-Epgllvhlfptvjh-Nbyyr ban Work Phone: Start: 04-08-2021 Current tobacco non- user cad cap copd pv dm Lacho Leavitt Work Phone: HV-Wykuuthucfifax-Czhhk 205 [place] Work Phone: Start: 02-18-2021 Office outpatient vi sit 15 minutes Lacho Leavitt Work Phone: CQ-Awyqqlkswqpedi-Svmdj bharati Work Phone: Start: 12-24-2020 Patient encounter procedure [facility] [facility] Work Phone: Start: 12-17-2020 Patient encounter [facility] [facility] Work Phone: Start: 12-03-2020 Patient encounter procedure [facility] [facility] Work Phone: Start: 11-15-2020 Patient encounter procedure [facility] [facility] Work Phone: Start: 11-05-2020 Patient encounter procedure [facility] [facility] Work Phone: Procedures Date Procedure Procedure Detail Performing Clinician Start: 06-04-2025 Vitamin D, 25-hydrox y measurement Dr. Maldonado Dash MD Work Phone: Comment on above: Vitamin D StatusDefi ciency: <20 ng/mL (50nmol/L)Insufficiency: 20-30 ng/mL (50-75 nmol/L)Sufficiency: 30-100 ng/mL (75-250 nmol/L)Toxicity: >100 ng/mL (>250 nmol/L) Start: 08-06-2022 Dual energy X-ray absorptiometry Dr. Maldonado Dash Work Phone: Start: 05-26-2022 Videoswaldelia Dash Work Phone: Start: 05-18-2022 Screening mammography Start: 03-02-[address] Augustus Nick Comment on above: Performed By: #### T +S #### [facility] [address] [place] [address] Start: 09-02-2015 Colonoscopy Tyrel umana MD Work Phone: Plan of Treatment Date Care Activity Detail Author Start: 02-18-2032 RSV High Risk: (Elde rly (60+) or Population) (1 - 1-dose 75+ series) RSV High Risk: (Elderly (60+) or Population) (1 - 1-dose 75+ series) [facility] Start: 01-22-2026 End: 01-22-2026 Patient encounter procedure 01/22/2026 11:15 AM EDT Office Visit [facility] [address] [place] [id number] [place] [address] [place] [address] [facility] Start: 09-02-2025 Screening for malign ant neoplasm of colon [facility] Start: 06-11-2025 [facility] Start: 06-04-2025 CBC W Auto Different ial panel - Blood [facility] Start: 06-04-2025 Comprehensive metabo lic 2000 panel - Serum or Plasma [facility] Start: 06-04-2025 Lipid 1996 panel - S flako or Plasma [facility] Start: 06-04-2025 Vitamin D, 25-hydrox y measurement [facility] Start: 05-28-2025 Influenza vaccination Influenz a Vaccine (Season Ended) [facility] Start: 01-16-2025 End: 01-16-2025 Patient encounter procedure 01/16/2025 11:45 AM EDT Office Visit [facility] [address] [place] [address] [place] [address] [facility] [place] [address] [facility] Start: 05-28-2024 COVID-19 Vaccine ( season) COVID-19 Vaccine ( season) [facility] Start: 01-18-2024 End: 01-17-2025 Thyrotropin [Units/volume] in Serum or Plasma [facility] Work Phone: Comment on above: Expected: 01/18/2024 (Approximate), Expires: 01/17/2025 Start: 07-20-2023 FUV, Provider: Tyrel Christina, Status: Pen, Time: 12:30 PM FUV, Provider: Tyrel Christina, Status: Pen, Time: 12:30 PM ZA-Hsnrboynzavhqt-Mgi [place] Work Phone: Start: 07-20-2023 End: 07-20-2024 XR Chest 2 Views XR chest 2 views Imaging Routine Cancer of parotid gland (CMS/HCC) Expected: 07/20/2023, Expires: 07/20/2024 [facility] Work Phone: Comment on above: Expected: 07/20/2023 , Expires: 07/20/2024 Start: 05-28-2023 COVID-19 Vaccine ( season) COVID-19 Vaccine ( season) [facility] Start: 01-19-2023 FUV, Provider: Tyrel Christina, Status: Pen, Time: 12:30 PM FUV, Provider: Tyrel Christina, Status: Pen, Time: 12:30 PM YV-Ejgbjxaugdnzxx-Zue [place] Work Phone: Start: 07-21-2022 FUV, Provider: Tyrel Christina, Status: Pen, Time: 12:45 PM FUV, Provider: Tyrel Christina, Status: Pen, Time: 12:45 PM PG-Myrcslykbgdxwz-Fkq [place] Work Phone: Start: 06-17-2022 Diabetes mellitus screening Diabetes Screening [facility] Start: 03-27-2022 POV, Provider: Jc Nick, Status: Pen, Time: 4:00 PM POV, Provider: Jc Nick, Status: Pen, Time: 4:00 PM [facility] Work Phone: Start: 03-10-2022 SURGCMC, Provider: Jc Nick, Status: Pen, Time: 9:00 AM SURGCMC, Provider: Jc Nick, Status: Pen, Time: 9:00 AM AK-Wrxmgeqwljfwym-Aha for Perioperative Med Work Phone: Start: 2022 FUV, Provider: Tyrel Christina, Status: Pen, Time: 2:15 PM FUV, Provider: Tyrel Christina, Status: Pen, Time: 2:15 PM BO-Hyocmmgoncfmis-Arb [place] Work Phone: Start: 2022 Pneumococcal Vaccine : 65+ Years (1 - PCV) Pneumococcal Vaccine: 65+ Years (1 - PCV) [facility] Start: 2022 Pneumococcal Vaccine : 65+ Years (1 of 1 - PCV) Pneumococcal Vaccine: 65+ Years (1 of 1 - PCV) [facility] Start: 11-18-2021 FUV, Provider: Tyrel Christina, Status: Pen, Time: 2:00 PM FUV, Provider: Tyrel Christina, Status: Pen, Time: 2:00 PM CM-Eqjjmxkpbyrcjr-Rmv [place] Work Phone: Start: 08-05-2021 FUV, Provider: Tyrel Christina, Status: Pen, Time: 2:50 PM FUV, Provider: Tyrel Christina, Status: Pen, Time: 2:50 PM UP-Xfelnkaaloiabh-Amw urban Work Phone: Start: 06-17-2021 FUV, Provider: Hitesh Smart, Status: Pen, Time: 10:30 AM FUV, Provider: Contreras Smart, Status: Pen, Time: 10:30 AM VS-Aofsiqpggwlcmv-Ybe ma [address] [place] Work Phone: Start: 05-06-2021 FUV, Provider: Tyrel Christina, Status: Pen, Time: 3:50 PM FUV, Provider: Tyrel Christina, Status: Pen, Time: 3:50 PM RV-Mggulklugwfpex-Vlf [place] Work Phone: Start: 03-11-2021 FUV, Provider: Hitesh Smart, Status: Pen, Time: 11:00 AM FUV, Provider: Contreras Smart, Status: Pen, Time: 11:00 AM VY-Kzyvjtzazfgfzc-Feu [place] Work Phone: Start: 02-21-2021 COVID-19 Vaccine (3 - Pfizer series) COVID-19 Vaccine (3 - Pfizer series) [facility] Start: 2017 RSV patient s and/or patients aged 60+ years (1 - 1-dose 60+ series) RSV patients and/or patients aged 60+ years (1 - 1-dose 60+ series) [facility] Start: 2007 Pneumococcal vaccination Pneum ococcal Vaccine (1 of 1 - PCV) [facility] Start: 2007 Zoster Vaccines (1 of 2) Zoste r Vaccines (1 of 2) [facility] Start: 1997 Screening for malign ant neoplasm of breast Mammogram [facility] Start: 1979 DTaP/Tdap/Td Vaccine s (1 - Tdap) DTaP/Tdap/Td Vaccines (1 - Tdap) [facility] Start: 1975 Hepatitis C screening Hepatiti s C Screening [facility] Start: 1957 Lipid panel Lipid Panel [facility] Start: 1957 Medicare Annual Well ness Visit Medicare Annual Wellness Visit (AWV) [facility] Start: 1957 Screening for malign ant neoplasm of colon [facility] Start: 1957 Screening for osteoporosis Bone Density Scan [facility] Alanine aminotransfe rase [Enzymatic activity/volume] in Serum or Plasma [facility] Albumin [Mass/volume ] in Serum or Plasma [facility] Alkaline phosphatase [Enzymatic activity/volume] in Serum or Plasma [facility] Anion gap in Serum o r Plasma [facility] Bilirubin, total measurement [facility] BUN/Creatinine ratio [facility] Calcium [Mass/volume ] in Serum or Plasma [facility] Carbon dioxide, tota l [Moles/volume] in Central venous blood [facility] Cholesterol [Mass/volume] in Serum or Plasma [facility] Cholesterol in HDL [Mass/volume] in Serum or Plasma [facility] Creatinine [Mass/vol ume] in Serum or Plasma [facility] Erythrocyte mean corpuscular volume determination [facility] Glucose [Mass/volume ] in Serum or Plasma [facility] Hematocrit [Volume Fraction] of Blood [facility] Hemoglobin [Mass/vol ume] in Blood [facility] Leukocytes [#/volume ] in Blood [facility] Low density lipoprot ein cholesterol measurement [facility] Mean corpuscular hemoglobin concentration determination [facility] Mean corpuscular hemoglobin determination [facility] Measurement of renal function [facility] Neutrophil count [facility] Neutrophil percent differential count [facility] Platelets [#/volume] in Blood [facility] Potassium measurement [facility] Red blood cell count [facility] Red cell distributio n width determination [facility] Serum chloride measurement [facility] Sodium measurement [facility] Total cholesterol:HD L ratio measurement [facility] Total protein measurement [facility] Triglycerides measurement [facility] Urea nitrogen [Mass/volume] in Serum or Plasma [facility] VLDL cholesterol measurement [facility] End: 01-16-2025 XR Chest 2 Views [facility] Work Phone: Comment on above: Once for 1 Occurrenc es starting 01/16/2025 until 01/16/2025 [facility] Work Phone: [facility] NEGATED: Highlighted row has been ruled out! Planned Goals not documented [facility] Work Phone: Immunizations Immunization Date Immunization Notes Care Provider Fa cili 07-02-2023 influenza, injectabl e, quadrivalent, preservative free Dr. Maldonado Dash MD Work Phone: [facility] 07-02-2023 influenza virus vaccine, unspecified formulation Tyrel Christina MD Work Phone: [facility] Work Phone: 12-27-2020 Covid (Pfizer) Dr. Lacho horton Work Phone: [facility] 12-06-2020 Covid (Pfizer) Dr. Lacho horton Work Phone: [facility] Payers Date Payer Category Payer Self-pay [id number] 2022 Medicare [employer] [place] [employer] [place] [employer] [id number] 2022-Present [address] [place] [address] [id number] 2022 Medicare (Managed Care) [facility] MEDICARE [id number] 2022 Medicare [id number] 1957 Unknown [id number]. 1957 Unknown [id number] [id number]. 1957 Unknown [id number] [id number]. 1957 Unknown [id number] [id number]. 1957 Unknown [id number] [id number]. 1957 Unknown [id number] [id number]. 356 1957 Unknown [id number] [id number]. 1957 Unknown [id number] [id number]. 1957 Unknown [id number] [id number]. 1957 Unknown [id number] [id number]. 1957 Unknown [id number] [id number]. 1245 1957 Unknown [id number] [id number]. 1244 Medicare [id number] Unknown Unknown [id number] Unknown [id number] Unknown [id number] Unknown [id number] 462 Unknown [id number] 462 Unknown [id number] 462 Unknown [id number]. 462 Unknown [id number]. 462 Unknown [id number] [id number]. 462 Unknown [id number]. 462 Unknown [id number] 462 Social History Date Type Detail Facility Assertion Tobacco [facility] consumption unknown (finding) [facility] Start: 07-20-2023 End: 01-16-2025 Retired from employment Retired from employment [facility] Work Phone: Start: 09-05-2021 End: 07-20-2022 Tobacco smoking status NHIS Unknown if ever smoked [facility] Start: 12-18-2020 Non-smoker [facility] Start: 1955 Sex Assigned At Female [facility] Start: 07-20-2023 End: 06-04-2025 Tobacco smoking status NHIS Never smoked tobacco [facility] Start: 07-20-2023 Tobacco use and exposure Smokeless tobacco non-user [facility] Work Phone: Start: 07-20-2023 End: 01-16-2025 Tobacco use panel [facility] Work Phone: Start: 1955 Sex Assigned At Not on file [facility] Work Phone: Start: 07-10-2023 End: 01-16-2025 Exposure to SARS-CoV-2 (event) Not sure [facility] Sexual Orientation Heterosexual (finding) [facility] Medical Equipment Procedure Code Equipment Code Equipment Original Text Equipment Identifier Dates Eyelid Weight, 1.0gram, [place], Thin Profile Case [id number] Start: 11-28-2020 Comment on above: Description: Convert ed from [facility]. Please see archived information for full log information. Functional Status Date Assessment Result Facility NEGATED: Highlighted row Functional performance Functional status health issues are not documented [facility] Work Phone: Mental Status Date Assessment Result Facility NEGATED: Highlighted row Cognitive function [Interpretation] Cognitive status health issues are not documented [facility] Work Phone: Clinical Notes 10-28-2020 to 05-03-2025 Note Date & Type Note Facility 05-03-2025 Evaluation note Diagnosis Onset Date Resolution Contact dermatitis acute May 03, 2025 4:05pm [facility] Work Phone: 1(507) 576-530408-07-2025 Evaluation note* Diagnosis Onset Date Resolution Status Admit Date Contact dermatitis acute May 03, 2025 4:05pm Contact dermatitis acute Sept2024 8:01am Health care maintenance acute S eptember 2024 8:01am Hyperlipidemia chronic June 04, 2025 8:01am Osteopenia chronic June 04, 2025 8:01am [facility] Work Phone: 1(969) 492-876704-22-2025 History of Present illness Narrative* Tyrel Christina MD - 01/16/2025 11:45 AM EDT Provider Impressions Status post parotidectomy and neck 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 She has no evidence of any recurrence. A TSH and a chest x-ray will be obtained today. Significant improvement of the facial asymmetry following surgery. I will see her in 1 year. 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 History of Present Illness This patient was seen in October 2020 at the request of a local colleague. In late June 2020 she noticed a lump on the left side of her neck and preauricular area. She had some discomfort over the area and she also had some tightness of her face and some difficulty with eating. She had a CT scan that I personally reviewed that showed a large mass involving the superficial and deep lobe of theleft parotid. On November 28, 2020 she underwent a radical parotidectomy and neck dissection with reconstruction. 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 She completed her radiation therapy on February 19, 2021. She had a PET scan in May 2021. I personally reviewed that scan and it is definitely negative for anything worrisome in the head neck area or at distant sites. She had a chest x- ray in June 2023 which was negative. She had a TSH level in December 2022 which was normal. 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 She has no significant complaints. Physical Exam Examination of the parotid, neck, and thyroid field shows no obvious evidence of any masses or adenopathies. She does have some left facial weakness mainly of the upper division. The intraoral exam is negative. The ear examination on the left side showed a lot of debris and this was removed with small instruments. 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 She has no evidence of any recurrence. A TSH will be obtained today. Significant improvement of the facial asymmetry following surgery. I will see her in 1 year. 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 History of Present Illness This patient was seen in October 2020 at the request of a local colleague. In late June 2020 she noticed a lump on the left side of her neck and preauricular area. She had some discomfort over the area and she also had some tightness of her face and some difficulty with eating. She had a CT scan that I personally reviewed that showed a large mass involving the superficial and deep lobe of theleft parotid. On November 28, 2020 she underwent a radical parotidectomy and neck dissection with reconstruction. 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 She completed her radiation therapy on February 19, 2021. She had a PET scan in May 2021. I personally reviewed that scan and it is definitely negative for anything worrisome in the head neck area or at distant sites. She had a chest x- ray in June 2023 which was negative. She had a TSH level in December 2022 which was normal. 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 She has no significant complaints. Physical Exam Examination of the parotid, neck, and thyroid field shows no obvious evidence of any masses or adenopathies. She does have some left facial weakness mainly of the upper division. The intraoral exam is negative. The ear examination on the left side showed a lot of debris and this was removed with small instruments. 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 She has no evidence of any recurrence. A TSH will be obtained today. Significant improvement of the facial asymmetry following surgery. I will see her in 6 months. 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 History of Present IllnessThis patient was seen in October 2020 at the request of a local colleague. In late June 2020 she noticed a lump on the left side of her neck and preauricular area. She had some discomfort over the area and she also had some tightness of her face and some difficulty with eating. She had a CT scan that I personally reviewed that showed a large mass involving the superficial and deep lobe of the left parotid. On November 28, 2020 she underwent a radical parotidectomy and neck dissection with reconstruction. This turned out to be consistent with a salivary duct carcinomaclassified as high-grade. She had 9 positive nodes. She completed her radiation therapy on February 19, 2021. She had a PET scan in May 2021. I personally reviewed that scan and it is definitely negative for anything worrisome in the head neck area or at distant sites. She had a chest x-ray in June 2022 which was negative. She had a TSH level in December 2022 which was normal. 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 She has no significant complaints. Physical Exam Examination of the parotid, neck, and thyroid field shows no obvious evidence of any masses or adenopathies. She does have some left facial weakness mainly of the upper division. The intraoral exam is negative. The ear examination is negative. documented in this [facility] Work Phone: 1(144) 510-377706-24-2022 History of Present illness Narrative* s/p selective neurectomy, browlift, fascia suspension (fascia annabelle), muscle transposition * Doing well, expected swelling * incisions c/d/i, healing well * facial contour approriate * swelling present as expected * recommend follow up 2-3 months * incision care discussed * scar care discussed [facility] Work Phone: 1(171) 373-888306-20-2022 History of Present illness NarrativePatient presents today for suture removal. Patient of Dr. Nick's. Had surgery a little over 2 weeks [facility] Work Phone: 1([phone]) 449-304306-14-2022 NotePROCEDURE DETAILS Preoperative Diagnosis: Jurado's palsy, G51.0 Postoperative Diagnosis: same Surgeon: Jc Nick Resident/Fellow/Other College Basketball Coach: Terrance Rivers Procedure: 1. Facial Suspension, Fascia Graft 2. Selective Neuromyectomy 3. Muscle transposition/flap with fascia annabelle extension 4. SMAS facial suspension with fat/fascia grafting for facial atrophy and volume loss Anesthesia: Aby Caldwell Estimated Blood Loss: 50 ml Findings: see operative note Operative Report: The patient was brought to the operating room and placed supine on the table. Identity was confirmed. General anesthesia was induced and patient was intubated with a cuffed endotracheal tube. A time-out was performed. The operating table was rotated 90 degrees. SCD boots were placed and the arms protected and tucked at the left side. The facial nerve stimulation was performed with the hand-held stimulator. A left facelift incision was created with a 15-blade scalpel. Sharp excision of previous scar tissue was performed. Skin flaps were then elevated. A superficial musculoaponeurotic flap based on the facial artery distribution was then elevated and raised with dissection in the sub-SMAS layer performed. A composite SMAS and skin flap was elevated based on the facial artery distribution . The parotid-masseteric fascia was entered in order to expose facial nerves, subsequently dissection was performed to fully exposed the relevant branches of the facial nerve. The buccal, temporal, and zygomatic branches were identified. Nerve stimulation of these branches was performed. Nerves contributing to favorable movement of the oral commissure and orbicularis oculi muscles were maintained. This including upward and lateral movement of the commissure. Those branches of the zygomatic nerve that contributed to orbicularis oculi spasm were lysed. In total, two distal branches of the facial nerve were lysed, clipped proximally for denervation of the muscle. Multiple branches to the orbicularis oculi were preserved providing lateral innervation. Further sub-SMAS deep place dissection was performed to the left oral commissure. This depressor anguli doni was identified and isolated. It was detached inferiorly and transposed superiorly while maintaining its attachment to the modiolus. A 10 x 4 cm fascia annabelle graft was then harvested from the left lateral thigh. This was performed with a vertical incision with dissection carried down to the desired fascia for harvest. This was incised and isolated. Hemostasis was achieved and closure was performed in a multilayer fashion with vicryl and fast gut suture. This was taken to the left face. The fascia annabelle was then sutured to the free end of the depressor anguli doni for favorable vector and extension of muscle for facial suspension. This was then placed on adequate tension and suspended to the lateral temporal fascia and zygomatic fascia with a combination of PDS and vicryl suture. The superficial musculoaponeurotic flap was then resuspended to the adjacent SMAS edges with PDS suture in order to achieve suspension of the facial fascial layers appropriately. Excess skin margin was excised to accommodate the lift achieved. The skin was closed with 5-0 fast gut suture. Ointment and xeroform was applied to the incision with a face lift dressing placed. A pre-trichial incision was made on the left forehead. Sub-galeal dissection was performed inferiorly for a distance of roughly 2 cm and dissection then preceded to the subcutaneous plan to protect the frontal branch of the facial nerve. In this way the brow was mobilized and was elevated manually. The right walnut dehydrator operator muscle was then identified and isolated with fine dissection; excision of this muscle was subsequently performed to complete the selective myectomy. Based on the location of maximal elevation determined pre-operatively, her brown was suspended with a 3-0 PDS suture from the galea inferior to the incision up to the galea/periostium superior to the incision. A second suspension suture was placed and there was good elevation of the temporal aspect of the brow Attention was given to brow symmetry. The incisions were closed in a layered fashion with 4-0 monocryl for the deep layer and 4-0 prolene for skin. Ointment was again applied. A facelift and browlift wrap dressing was then applied. The patient was awoken from general anesthesia and sent to the recovery room in a stable condition. Attestation: Note Completion: Attending AttestationI was present for the entire procedure Electronic Signatures: Jc Nick) (Signed 11-Mar-2022 11:55) Authored: Post-Operative Note, Chart Review, Note Completion Last Updated: 11-Mar-2022 11:55 by Jc Nick)[facility]06-14-2022 NoteThis report has been cancelled.[facility] 03-10-2022 NoteHistory & Physical Reviewed: I have reviewed the History and Physical dated: 17-Feb-2022 History and Physical reviewed and relevant findings noted. Patient examined to review pertinent physical findings.: No significant changes Home Medications Reviewed: no changes noted Allergies Reviewed: no changes noted ERAS (Enhanced Recovery After Surgery): ERAS Patient: no Consent: COVID-19 Consent: COVID-19 Risk ConsentSurgeon has reviewed layton risks related to the risk of milotn COVID-19 and if they contract COVID-19 what the risks are. Attestation: Note Completion: I am a: Resident/Fellow Attending AttestationI saw and evaluated the patient. I personally obtained the layton and critical portions of the history and physical exam or was physically present for layton and critical portions performed by the resident/fellow. I reviewed the resident/fellows documentation and discussed the patient with the resident/fellow. I agree with the resident/fellows medical decision making as documented in the note. I personally evaluated the patient [id number] Electronic Signatures: Terrance Rivers (Resident)) (Signed 09-Mar-2022 23:31) Authored: History & Physical Reviewed, ERAS, Consent, Note Completion Jc Nick) (Signed 10-Mar-2022 12:35) Authored: Note Completion Co-Signer: History & Physical Reviewed, ERAS, Consent, Note Completion Last Updated: 10-Mar-2022 12:35 by Jc Nick)[facility]10-01-2021 History of Present illness Narrative* 65 yo woman who presents for evaluation of a left parotid mass. She first noticed some tightness ofthe face back in June, and a little swelling around the left saliva gland. Saw her PCP and was placed on steroids. This area kept growing and she eventually went to outside ENT who performed a CT scan, FNA and sent her to Dr. Christina. The biopsy showed oncocytic neoplasm. He is planning a radical parotidectomy with facial nerve sacrifice, I am consulted for reconstruction. * 12-03-20 postop: doing well, drains with <30 cc of output over past 24 hours. minimal pain, took some tylenol. no eye drying. some discomfort in the left ear at times. Tolerating PO intake without any issues * 12-17-20 FU: doing well, no new complaints, no eye tearing or dryness. saw Dr. Saldana, plan for radiation to start 01/06. Tolerating PO * 03-11-21 FU: completed adjuvant radiation, some dry mouth, no eye irritation, still using lube / drops; some limited jaw opening bought a jaw stretcher online * 04-08-21 FU: improved left facial movement with exercise. no dry eye, some excess tearing at times * 06-17-21 FU: improved eye tearing, some twitching over the eye at times wish muscle use. PET scan done today [facility] Work Phone: 1([phone]) 922-754603-01-2021 History of Present illness Narrative* Referring Provider: * HPI: KYMBERLY PICHARDO is a 66 year Non- or female who was referred for evaluation of facial paralysis. * Onset: November 2020 * Side: left side * Severity: 56 * Cause of paralysis: parotid lesion, oncocytic neoplasm, resection * Primary concerns: brow ptosis, oral asymmetry, tearing * Dry eye history: frequent tearing * Previous interventions: eyelid weight (1g), 5-[address] Smart jump grafting * A 14 organ review of systems was reviewed with the patient. Pertinent items are noted in HPI. She denies otalgia, odynophagia, dysphagia, dysarthria, voice changes, hemoptysis, or weight loss. * Past, family, and social history obtained but not pertinent to current problem. * Physical Exam * General: Well-developed and well-nourished in appearance. * Skin: No rashes or concerning lesions on the visible portions of the skin. * Eyes: Extraocular movements intact. Visual shultz grossly normal. * Ears: Pinna are normal in shape and position. External canals are patent. * Nose: Dorsum is midline. Septum is midline and turbinates are normal on anterior * rhinoscopy. * Oral Cavity/Oropharynx: Dentition is intact. Mucous membranes moist. No masses or * lesions. Tonsils are symmetric and non-obstructive. * Neck: Midline trachea without masses or lesions. Thyroid is normal in size. * Lymphatics: No palpable cervical lymphadenopathy * Respiratory: No respiratory distress. Quiet breathing without stertor or stridor. * Cardiovascular: Regular rate and rhythm. Warm extremities with equal pulses. * Psych: Normal mood and affect. Judgement and insight appropriate. * Neuro: Alert and oriented. CN II-XII grossly intact. No focal deficits. * Musculoskeletal: Gait intact. Moves all extremities well without apparent deformities. * A comprehensive facial examination was performed with the following highlights: * HB: 5/6 * Appearance at rest: asymmetry of brow and commissure * Upper third exam: * Brow: moderate ptosis * Upper eyelid: weight * Lower eyelid: mild ectropion * Corneal exam: healthy * Austell phenomenon: present * Middle third exam: * NL fold: blunted on the left * Oral commissure: mild asymmetry * Lower lip: droop * Lower third exam: absent on the left * Good commissure movement/excursion with masseteric nerve [facility] Work Phone: 1(762) 894-586102-01-2021 History of Present illness Jeff patient was seen in October 2020 at the request of a local colleague. In late June 2020 she noticed a lump on the left side of her neck and preauricular area. She had some discomfort over the area and she also had some tightness of her face and some difficulty with eating. She had a CT scan that I personally reviewed that showed a large mass involving the superficial and deep lobe of the left parotid. On November 28, 2020 she underwent a radical parotidectomy and neck dissection with reconstruction. 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 She will be completing her radiation therapy on February 19, 2021. She does have issues with trismus.[facility] Work Phone: 1(859) 157-650602-01-2021 History of Present illness Jeff patient was seen in October 2020 at the request of a local colleague. In late June 2020 she noticed a lump on the left side of her neck and preauricular area. She had some discomfort over the area and she also had some tightness of her face and some difficulty with eating. She had a CT scan that I personally reviewed that showed a large mass involving the superficial and deep lobe of the left parotid. On November 28, 2020 she underwent a radical parotidectomy and neck dissection with reconstruction. 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 She will be completing her radiation therapy on February 19, 2021. She does have issues with trismus. Otherwise she seems to be doing fairly well. Her facial function has recovered.[facility] Work Phone: 1(227) 854-928902-01-2021 History of Present illness Jeff patient was seen in October 2020 at the request of a local colleague. In late June 2020 she noticed a lump on the left side of her neck and preauricular area. She had some discomfort over the area and she also had some tightness of her face and some difficulty with eating. She had a CT scan that I personally reviewed that showed a large mass involving the superficial and deep lobe of the left parotid. On November 28, 2020 she underwent a radical parotidectomy and neck dissection with reconstruction. 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 She completed her radiation therapy on February 19, 2021. She had a PET scan in May 2021. I personally reviewed that scan and it is definitely negative for anything worrisome in the head neck area or at distant sites. The patient is feeling fairly good. She does have somefacial asymmetry.[facility] Work Phone: 1(370) 275-233302-01-2021 History of Present illness Jeff patient was seen in October 2020 at the request of a local colleague. In June 2020 she noticed a lump on the left side of her neck and preauricular area. She had some discomfort over the area and she also had some tightness of her face and some difficulty with eating. She had a CT scan that I personally reviewed that showed a large mass involving the superficial and deep lobe of the left parotid. On November 28, 2020 she underwent a radical parotidectomy and neck dissection with reconstruction. 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 She completed her radiation therapy on February 19, 2021. She had a PET scan in May 2021. I personally reviewed that scan and it is definitely negative for anything worrisome in the head neck area or at distant sites. The patient is feeling fairly good. She does have somefacial asymmetry.[facility] Work Phone: 1(622) 508-442302-01-2021 History of Present illness Jeff patient was seen in October 2020 at the request of a local colleague. In June 2020 she noticed a lump on the left side of her neck and preauricular area. She had some discomfort over the area and she also had some tightness of her face and some difficulty with eating. She had a CT scan that I personally reviewed that showed a large mass involving the superficial and deep lobe of the left parotid. On November 28, 2020 she underwent a radical parotidectomy and neck dissection with reconstruction. 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 She completed her radiation therapy on February 19, 2021. She had a PET scan in May 2021. I personally reviewed that scan and it is definitely negative for anything worrisome in the head neck area or at distant sites. The patient is feeling fairly good. She does have somefacial asymmetry. 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 In late June 2020 she noticed a lump on the left side of her neck and preauricular area. She had some discomfort over the area and she also had some tightness of her face and some difficulty with eating. She had a CT scan that I personally reviewed that showed a large mass involving the superficial and deep lobe of the left parotid. On November 28, 2020 she underwent a radical parotidectomy and neck dissection with reconstruction. 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 She completed her radiation therapy on February 19, 2021. She had a PET scan in May 2021. I personally reviewed that scan and it is definitely negative for anything worrisome in the head neck area or at distant sites. The patient is feeling fairly good. 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 FV-Gxezfvcrqdknby-Slqyqndq Work Phone: Evaluation note* Diagnosis Onset Date Resolution Status Primary parotid gland malignancy acute [facility] Work Phone: Evaluation noteNo assessment information available [facility] Work Phone: Evaluation note* Diagnosis Onset Date Resolution Status Primary parotid gland malignancy acute Atrophic vaginitis noneactiv e Encounter for routine gynecological examination noneactive [facility] Work Phone: Evaluation note* Diagnosis Onset Date Resolution Status Atrophic vaginitis noneactiv e Encounter for routine gynecological examination noneactive Primary parotid gland malignancy acute [facility] Work Phone: Evaluation note* Diagnosis Cancer of parotid gland (CMS/HCC) Malignant neoplasm of parotid gland documented in this encounter [facility] Work Phone: Evaluation note* Diagnosis Cancer of parotid gland (Multi)- Primary Malignant neoplasm of parotid gland Effects of radiation, sequela Other specified disorders of thyroid Impacted cerumen of left ear Impacted cerumen documented in this encounter [facility] Work Phone: Evaluation note* Diagnosis Cancer of parotid gland (Multi)- Primary Malignant neoplasm of parotid gland Impacted cerumen of left ear Impacted cerumen documented in this encounter [facility] Work Phone: Evaluation note* Diagnosis Cancer of parotid gland (Multi) Malignant neoplasm of parotid gland documented in this encounter [facility] Work Phone: History of Present illness Narrative* 65 yo woman who presents for evaluation of a left parotid mass. She first noticed some tightness ofthe face back in June, and a little swelling around the left saliva gland. Saw her PCP and was placed on steroids. This area kept growing and she eventually went to outside ENT who performed a CT scan, FNA and sent her to Dr. Christina. The biopsy showed oncocytic neoplasm. He is planning a radical parotidectomy with facial nerve sacrifice, I am consulted for reconstruction. * 3-06-17 postop: doing well, drains with <30 cc of output over past 24 hours. minimal pain, took some tylenol. no eye drying. some discomfort in the left ear at times. Tolerating PO intake without any issues * 12-17- FU: doing well, no new complaints, no eye tearing or dryness. saw Dr. Saldana, plan for radiation to start 01/06. Tolerating PO * 03-11-21 FU: completed adjuvant radiation, some dry mouth, no eye irritation, still using lube / drops; some limited jaw opening bought a jaw stretcher online * 04-08-21 FU: improved left facial movement with exercise. no dry eye, some excess tearing at times DT-Qakodfeizqebhh-Tpuoe [address] [place] Work Phone: History of Present illness Narrative* 65 yo woman who presents for evaluation of a left parotid mass. She first noticed some tightness ofthe face back in June, and a little swelling around the left saliva gland. Saw her PCP and was placed on steroids. This area kept growing and she eventually went to outside ENT who performed a CT scan, FNA and sent her to Dr. Christina. The biopsy showed oncocytic neoplasm. He is planning a radical parotidectomy with facial nerve sacrifice, I am consulted for reconstruction. * 12-03-20 postop: doing well, drains with <30 cc of output over past 24 hours. minimal pain, took some tylenol. no eye drying. some discomfort in the left ear at times. Tolerating PO intake without any issues * 12-17-20 FU: doing well, no new complaints, no eye tearing or dryness. saw Dr. Saldana, plan for radiation to start 01/06. Tolerating PO * 03-11-21 FU: completed adjuvant radiation, some dry mouth, no eye irritation, still using lube / drops; some limited jaw opening bought a jaw stretcher online * 04-08-21 FU: improved left facial movement with exercise. no dry eye, some excess tearing at times * - FU: improved eye tearing, some twitching over the eye at times wish muscle use. PET scan done today YL-Xxjojpmnbhzcfa-Dtwyzcx Work Phone: History of Present illness Narrative* 65 yo woman who presents for evaluation of a left parotid mass. She first noticed some tightness ofthe face back in June, and a little swelling around the left saliva gland. Saw her PCP and was placed on steroids. This area kept growing and she eventually went to outside ENT who performed a CT scan, FNA and sent her to Dr. Christina. The biopsy showed oncocytic neoplasm. He is planning a radical parotidectomy with facial nerve sacrifice, I am consulted for reconstruction. * 12-03-20 postop: doing well, drains with <30 cc of output over past 24 hours. minimal pain, took some tylenol. no eye drying. some discomfort in the left ear at times. Tolerating PO intake without any issues * 12-17-20 FU: doing well, no new complaints, no eye tearing or dryness. saw Dr. Saldana, plan for radiation to start 01/06. Tolerating PO * 03-11-21 FU: completed adjuvant radiation, some dry mouth, no eye irritation, still using lube / drops; some limited jaw opening bought a jaw stretcher online * 04-08-21 FU: improved left facial movement with exercise. no dry eye, some excess tearing at times * 06-17-21 FU: improved eye tearing, some twitching over the eye at times wish muscle use. PET scan done today [facility] Work Phone: History of Present illness Narrative* Referring Provider: * HPI: KYMBERLY PICHARDO is a 66 year Non- or female who was referred for evaluation of facial paralysis. * Onset: * Side: * Severity: * Cause of paralysis: * Primary concerns: * Dry eye history: * Previous interventions: * A 14 organ review of systems was reviewed with the patient. Pertinent items are noted in HPI. She denies otalgia, odynophagia, dysphagia, dysarthria, voice changes, hemoptysis, or weight loss. * Past, family, and social history obtained but not pertinent to current problem. * Physical Exam * General: Well-developed and well-nourished in appearance. * Skin: No rashes or concerning lesions on the visible portions of the skin. * Eyes: Extraocular movements intact. Visual shultz grossly normal. * Ears: Pinna are normal in shape and position. External canals are patent. * Nose: Dorsum is midline. Septum is midline and turbinates are normal on anterior * rhinoscopy. * Oral Cavity/Oropharynx: Dentition is intact. Mucous membranes moist. No masses or * lesions. Tonsils are symmetric and non-obstructive. * Neck: Midline trachea without masses or lesions. Thyroid is normal in size. * Lymphatics: No palpable cervical lymphadenopathy * Respiratory: No respiratory distress. Quiet breathing without stertor or stridor. * Cardiovascular: Regular rate and rhythm. Warm extremities with equal pulses. * Psych: Normal mood and affect. Judgement and insight appropriate. * Neuro: Alert and oriented. CN II-XII grossly intact. No focal deficits. * Musculoskeletal: Gait intact. Moves all extremities well without apparent deformities. * A comprehensive facial examination was performed with the following highlights: * HB: * Appearance at rest: * Upper third exam: * Brow: * Upper eyelid: * Lower eyelid: * Corneal exam: * Austell phenomenon: * Middle third exam: * NL fold: * Oral commissure: * Lower lip: * Lower third exam: * Masseter Movement: * Tongue Movement: CX-Bocrydvttmurqt-Oqxwolx Work Phone: History of Present illness Narrative* Referring Provider: * HPI: KYMBERLY PICHARDO is a 66 year Non- or female who was referred for evaluation of facial paralysis. * Onset: * Side: * Severity: * Cause of paralysis: * Primary concerns: * Dry eye history: * Previous interventions: * A 14 organ review of systems was reviewed with the patient. Pertinent items are noted in HPI. She denies otalgia, odynophagia, dysphagia, dysarthria, voice changes, hemoptysis, or weight loss. * Past, family, and social history obtained but not pertinent to current problem. * Physical Exam * General: Well-developed and well-nourished in appearance. * Skin: No rashes or concerning lesions on the visible portions of the skin. * Eyes: Extraocular movements intact. Visual shultz grossly normal. * Ears: Pinna are normal in shape and position. External canals are patent. * Nose: Dorsum is midline. Septum is midline and turbinates are normal on anterior * rhinoscopy. * Oral Cavity/Oropharynx: Dentition is intact. Mucous membranes moist. No masses or * lesions. Tonsils are symmetric and non-obstructive. * Neck: Midline trachea without masses or lesions. Thyroid is normal in size. * Lymphatics: No palpable cervical lymphadenopathy * Respiratory: No respiratory distress. Quiet breathing without stertor or stridor. * Cardiovascular: Regular rate and rhythm. Warm extremities with equal pulses. * Psych: Normal mood and affect. Judgement and insight appropriate. * Neuro: Alert and oriented. CN II-XII grossly intact. No focal deficits. * Musculoskeletal: Gait intact. Moves all extremities well without apparent deformities. * A comprehensive facial examination was performed with the following highlights: * HB: * Appearance at rest: * Upper third exam: * Brow: * Upper eyelid: * Lower eyelid: * Corneal exam: * Austell phenomenon: * Middle third exam: * NL fold: * Oral commissure: * Lower lip: * Lower third exam: * Masseter Movement: * Tongue Movement: PD[facility]pmyfx[facility]St[facility] Work Phone: History of Present illness Narrative* s/p selective neurectomy, browlift, fascia suspension (fascia annabelle), muscle transposition * Doing well, very happy with facial symmetry after browlfit and facial suspension * healing well * facial contour approriate * brows symmetric * synkinesis present, eyelid closure with bite * recommend prn follow up * further facial symmetry concerns may be addressed as needed PB-Ytkqxbbsufmktk-Abzgzwcf Work Phone: Reason for referral (narrative)No reason for referral information [facility] Work Phone: Reason for visit Narrative* Imaging (Routine) - Authorized Specialty Diagnoses / Procedures Referred By Esvin t Referred To Contact Radiology Diagnoses Cancer of parotid gland (Multi) Procedures XR chest 2 [place] [address] [place] [address] Phone: tel: fax: Referral ID Status Reason Start Date Expiration Date Visits Requested Visits Authorized [id number] Authorized Perform Procedure 01/16/2025 01/16/2026 1 1 [facility] Work Phone: Summary Purpose Family History No Family History Records Found Mother Name Dates Details Family history of malignant neoplasm of colon(V16.0, Z80.0) Status:Active Family history of diabetes m ellitus(V18.0, Z83.3) Status:Active Father Name Dates Details Family history of (7 99.9, R99) Status:Active Family history of leukemia(V 16.6, Z80.6) Status:Active Unknown Family Member Name Dates Details Family history of malignant neoplasm of colon: Mother(V16.0, Z80.0) Status:Active Family history of diabetes m ellitus: Mother(V18.0, Z83.3) Status:Active : Father Status:Active Family history of leukemia: Father(V16.6, Z80.6) Status:Active Unknown Family Member Name Dates Details Family history of malignant neoplasm of colon: Mother(V16.0, Z80.0) Status:Active Family history of diabetes m ellitus: Mother(V18.0, Z83.3) Status:Active : Father Status:Active Family history of leukemia: Father(V16.6, Z80.6) Status:Active Unknown Family Member Name Dates Details Family history of malignant neoplasm of colon: Mother(V16.0, Z80.0) Status:Active Family history of diabetes m ellitus: Mother(V18.0, Z83.3) Status:Active : Father Status:Active Family history of leukemia: Father(V16.6, Z80.6) Status:Active Unknown Family Member Name Dates Details Family history of leukemia: Father(V16.6, Z80.6) Status:Active : Father Status:Active Family history of diabetes m ellitus: Mother(V18.0, Z83.3) Status:Active Family history of malignant neoplasm of colon: Mother(V16.0, Z80.0) Status:Active Unknown Family Member Name Dates Details Family history of malignant neoplasm of colon: Mother(V16.0, Z80.0) Status:Active Family history of diabetes m ellitus: Mother(V18.0, Z83.3) Status:Active : Father Status:Active Family history of leukemia: Father(V16.6, Z80.6) Status:Active Unknown Family Member Name Dates Details Family history of malignant neoplasm of colon: Mother(V16.0, Z80.0) Status:Active Family history of diabetes m ellitus: Mother(V18.0, Z83.3) Status:Active : Father Status:Active Family history of leukemia: Father(V16.6, Z80.6) Status:Active Unknown Family Member Name Dates Details Family history of malignant neoplasm of colon: Mother(V16.0, Z80.0) Status:Active Family history of diabetes m ellitus: Mother(V18.0, Z83.3) Status:Active : Father Status:Active Family history of leukemia: Father(V16.6, Z80.6) Status:Active Unknown Family Member Name Dates Details Family history of malignant neoplasm of colon: Mother(V16.0, Z80.0) Status:Active Family history of diabetes m ellitus: Mother(V18.0, Z83.3) Status:Active : Father Status:Active Family history of leukemia: Father(V16.6, Z80.6) Status:Active Unknown Family Member Name Dates Details Family history of malignant neoplasm of colon: Mother(V16.0, Z80.0) Status:Active Family history of diabetes m ellitus: Mother(V18.0, Z83.3) Status:Active : Father Status:Active Family history of leukemia: Father(V16.6, Z80.6) Status:Active Unknown Family Member Name Dates Details Family history of malignant neoplasm of colon: Mother(V16.0, Z80.0) Status:Active Family history of diabetes m ellitus: Mother(V18.0, Z83.3) Status:Active : Father Status:Active Family history of leukemia: Father(V16.6, Z80.6) Status:Active Unknown Family Member Name Dates Details Family history of malignant neoplasm of colon: Mother(V16.0, Z80.0) Status:Active Family history of diabetes m ellitus: Mother(V18.0, Z83.3) Status:Active : Father Status:Active Family history of leukemia: Father(V16.6, Z80.6) Status:Active Unknown Family Member Name Dates Details Family history of leukemia: Father(V16.6, Z80.6) Status:Active : Father Status:Active Family history of diabetes m ellitus: Mother(V18.0, Z83.3) Status:Active Family history of malignant neoplasm of colon: Mother(V16.0, Z80.0) Status:Active Unknown Family Member Name Dates Details Family history of malignant neoplasm of colon: Mother(V16.0, Z80.0) Status:Active Family history of diabetes m ellitus: Mother(V18.0, Z83.3) Status:Active : Father Status:Active Family history of leukemia: Father(V16.6, Z80.6) Status:Active Relationship Condition Age at Onset Recorded Date/T ingrid mother Diabetes mellitus Unknown Malignant neoplasm of colon Unknown father Leukemia Unknown Unknown Family Member Name Dates Details Family history of malignant neoplasm of colon: Mother(V16.0, Z80.0) Status:Active Family history of diabetes m ellitus: Mother(V18.0, Z83.3) Status:Active : Father Status:Active Family history of leukemia: Father(V16.6, Z80.6) Status:Active Unknown Family Member Name Dates Details Family history of malignant neoplasm of colon: Mother(V16.0, Z80.0) Status:Active Family history of diabetes m ellitus: Mother(V18.0, Z83.3) Status:Active : Father Status:Active Family history of leukemia: Father(V16.6, Z80.6) Status:Active Unknown Family Member Name Dates Details Family history of malignant neoplasm of colon: Mother(V16.0, Z80.0) Status:Active Family history of diabetes m ellitus: Mother(V18.0, Z83.3) Status:Active : Father Status:Active Family history of leukemia: Father(V16.6, Z80.6) Status:Active Unknown Family Member Name Dates Details Family history of malignant neoplasm of colon: Mother(V16.0, Z80.0) Status:Active Family history of diabetes m ellitus: Mother(V18.0, Z83.3) Status:Active : Father Status:Active Family history of leukemia: Father(V16.6, Z80.6) Status:Active Unknown Family Member Name Dates Details Family history of malignant neoplasm of colon: Mother(V16.0, Z80.0) Status:Active Family history of diabetes m ellitus: Mother(V18.0, Z83.3) Status:Active : Father Status:Active Family history of leukemia: Father(V16.6, Z80.6) Status:Active Unknown Family Member Name Dates Details Family history of malignant neoplasm of colon: Mother(V16.0, Z80.0) Status:Active Family history of diabetes m ellitus: Mother(V18.0, Z83.3) Status:Active : Father Status:Active Family history of leukemia: Father(V16.6, Z80.6) Status:Active Unknown Family Member Name Dates Details Family history of malignant neoplasm of colon: Mother(V16.0, Z80.0) Status:Active Family history of diabetes m ellitus: Mother(V18.0, Z83.3) Status:Active : Father Status:Active Family history of leukemia: Father(V16.6, Z80.6) Status:Active Unknown Family Member Name Dates Details Family history of malignant neoplasm of colon: Mother(V16.0, Z80.0) Status:Active Family history of diabetes m ellitus: Mother(V18.0, Z83.3) Status:Active : Father Status:Active Family history of leukemia: Father(V16.6, Z80.6) Status:Active Unknown Family Member Name Dates Details Family history of malignant neoplasm of colon: Mother(V16.0, Z80.0) Status:Active Family history of diabetes m ellitus: Mother(V18.0, Z83.3) Status:Active : Father Status:Active Family history of leukemia: Father(V16.6, Z80.6) Status:Active Unknown Family Member Name Dates Details Family history of malignant neoplasm of colon: Mother(V16.0, Z80.0) Status:Active Family history of diabetes m ellitus: Mother(V18.0, Z83.3) Status:Active : Father Status:Active Family history of leukemia: Father(V16.6, Z80.6) Status:Active Advance Directives No Advanced Directives Records Found Advance Directive Response Recorded Date/ Time Living Will Yes September 05 1:14pm Power of Dust Puller Yes September 05, 2021 1:14pm Advance Directive Response Recorded Date/ Time Living Will Yes Jim 10th, 2 021 12:14pm Power of Dust Puller Yes September 05, 2021 12:14pm Chief Complaint Follow-up status post surgery for the management of a left parotid cancer.* BMI - 27.52 * follow up Follow-up status post surgery for the management of a left parotid cancer.follow upfollow upfollow upFollow-up status post surgery for the management of a left parotid cancer.follow upFollow-up status post surgery for the management of a left parotid cancer.Follow-up status post surgery for the management of a left parotid cancer.POV surgery 03/10POV surgery 03/10Suture removalFollow-up status post surgery for the management of a left parotid cancer. 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 Reason for Visit Primary parotid glan d malignancy Atrophic vaginitis Encounter for routine gynecological examination Chief Complaint 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 month f/u parotid MAJOR SALIVARY GLAND CARCINOMA/RX HERE Reason for Visit Atrophic vaginitis Encounter for routine gynecological examination Primary parotid gland malignancy Chief Complaint Admit Date POISON BOB - ARM AND STOMACH May 03, 2025 4:05pm Chief Complaint Admit Date POISON BOB - ARM AND STOMACH May 03, 2025 4:05pm YEARLY June 04, 2025 8:01am Reason for Visit Admit Date Contact dermatitis May 03, 2025 4:0 5pm Chief Complaint Admit Date POISON BOB - ARM AND STOMACH May 03, 2025 4:05pm YEARLY June 04, 2025 8:01am Malignant neoplasm of parotid gland Sept ember 2024 12:51pm Reason for Visit Admit Date Contact dermatitis May 03, 2025 4:0 5pm Contact dermatitis June 04, 2025 8:01am Health care maintenance June 04, 025 8:01am Hyperlipidemia June 04, 2025 8:01am Osteopenia June 04, 2025 8:01am Reason for Referral Specialty Diagnoses / Procedures Referred By Contac t Referred To Contact Radiology Diagnoses Cancer of parotid gland (CMS/HCC) Procedures XR chest 2 [place] [address] [facility] [place] [address] Referral ID Status Reason Start Date Expiration Date Visits Requested Visits Authorized [id number] Authorized Perform Procedure 3 07/19/2024 1 1 Additional Source Comments INFORMATION SOURCE (unrecogn ized section and content) DATE CREATED AUTHOR 10/08/2020 [facility] [place] DATE CREATED AUTHOR AUTHOR'S ORGANIZ ATION 10/29/2020 [facility] ([place]) DATE CREATED AUTHOR AUTHOR'S ORGANIZ ATION 06/25/2021 [facility] DATE CREATED AUTHOR AUTHOR'S ORGANIZ ATION 01/21/2023 [employer] DATE CREATED AUTHOR AUTHOR'S ORGANIZ ATION 01/21/2023 [facility] DATE CREATED AUTHOR AUTHOR'S ORGANIZ ATION 01/18/2025 [facility] DATE CREATED AUTHOR AUTHOR'S ORGANIZ ATION 01/19/2025 [facility] DATE CREATED AUTHOR AUTHOR'S ORGANIZ ATION 01/19/2025 [facility] DATE CREATED AUTHOR AUTHOR'S ORGANIZ ATION 06/14/2025 [facility] Goals (unrecognized section and content) Goals may be documented in a n alternate sectionGoals may be documented in an alternate sectionGoals may be documented in an alternate sectionGoals may be documented in an alternate sectionGoals may be documented in an alternate sectionGoals may be documented in an alternate sectionGoals may be documented in an alternate section Care Teams (unrecognized sec tion and content) Team Status: Active Member Role Status Dates No Primary Care Physician Family Provider Active Dr. Maldonado Dash MD Primary Care Provider Active Team Status: Inactive Member Role Status Dates Dr. Maldonado Dash MD Primary Care Provider, Refer ring Provider Active Flor Najera NP, CATTLE DEALER-C Attending Provider Active Team Status: Inactive Member Role Status Dates Dr. Maldonado Dash MD Primary Care Provider Active Dr. Herb Saldana DO Attending Provider Active Team Status: Inactive Member Role Status Dates Dr. Maldonado Dash MD Primary Care Provider Active Dr. Herb Shana , DO Attending Provider, Referring P santi Active Team Status: Inactive Member Role Status Dates Dr. Maldonado Dash MD Primary Care Provider Active Flor Najera CATTLE DEALER, CATTLE DEALER-C Attending Provider, Referring Provider Active Medicinal Plant Picker Relationship Specialty Start Date End Date Maldonado Dash MD [address] [facility] [place] [address] PCP - General 02/17/22 Karlos Saldana DO [address] [facility] [place] [address] Radiation Oncologist Radiation Oncology 07/16/23 Jan Romano MD [address] [facility]ose [facility] Thro[facility] [place], [place] [address] Referring Physician Otolaryngology 07/16/23 Ronny Mcguire MD [address] [place] [address] Radiation Oncologist Radiation Oncology 07/16/23 Medicinal Plant Picker Relationship Specialty Start Date End Date Maldonado Dash MD [address] [facility] [place] [address] PCP - General 02/17/22 Karlos Saldana DO [address] [facility] Internal [place] [address] Radiation Oncologist Radiation Oncology 07/16/23 Jan Romano MD [address] [facility] Nose and [facility] [place], [place] [id number] Referring Physician Otolaryngology 07/16/23 Ronny Mcguire MD [address] [place] [address] Radiation Oncologist Radiation Oncology 07/16/23 Medicinal Plant Picker Relationship Specialty Start Date End Date Maldonado Dash MD [facility]6 [facility] [place], [place] [address] PCP - General 02/17/22 Karlos Saldana DO [address] [facility] [place] [address] Radiation Oncologist Radiation Oncology 07/16/23 Jan Romano MD [address] [facility] Ear, Nose and Throat [place], [place] [id number] Referring Physician Otolaryngology 07/16/23 Ronny Mcguire MD [address] [place] [address] Radiation Oncologist Radiation Oncology 07/16/23 Medicinal Plant Picker Relationship Specialty Start Date End Date Madlonado Dash MD 6 [facility] [place] [address] PCP - General 02/17/22 Karlos Saldana DO [address] [facility] [place] [address] Radiation Oncologist Radiation Oncology 07/16/23 Jan Romano MD [address] [facility] Ear, Nose and Throat [place], [place] [address] Referring Physician Otolaryngology 07/16/23 Ronny Mcguire MD [address] [facility] [place] [address] Radiation Oncologist Radiation Oncology 07/16/23 Team Status: Active Member Role/Relationship Status Dates No Primary Care Physician Family Provider Active Dr. Maldonado Dash MD Primary Care Provider Active Team Status: Inactive Member Role/Relationship Status Dates Dr. Maldonado Dash MD Primary Care Provider Active Start: March 27, 2025 Dr. Mariaelena Romero MD Attending Provider Active Start: March 27, 2025 Team Status: Inactive Member Role/Relationship Status Dates Dr. Maldonado Dash MD Primary Care Provider Active Start: May 03, 2025 End: May 03, 2025 Dr. Maldonado Dash MD Referring Provider Active Start: May 03, 2025 End: May 03, 2025 DREW Christy Attending Provider Active Start: May 03, 2025 End: May 03, 2025 Team Status: Active Member Role/Relationship Status Dates Dr. Maldonado Dash MD Primary Care Provider Active Team Status: Inactive Member Role/Relationship Status Dates Dr. Maldonado Dash MD Primary Care Provider Active Start: June 04, 2025 End: June 04, 2025 Dr. Maldonado Dash MD Attending Provider Active Start: June 04, 2025 End: June 04, 2025 Dr. Maldonado Dash MD Referring Provider Active Start: June 04, 2025 End: June 04, 2025 Team Status: Active Member Role/Relationship Status Dates Dr. Maldonado Dash MD Primary Care Provider Active Start: June 04, 2025 Dr. Maldonado Dash MD Attending Provider Active Start: June 04, 2025 Dr. Maldonado Dash MD Referring Provider Active Start: June 04, 2025 Team Status: Active Member Role/Relationship Status Dates Dr. Maldonado Dash MD Primary care physician Activ e Team Status: Inactive Member Role/Relationship Status Dates Dr. Maldonado Dash MD Primary care physician Activ e Start: March 27, 2025 Dr. Mariaelena Romero MD Attending physician Active Start: March 27, 2025 Team Status: Inactive Member Role/Relationship Status Dates Dr. Maldonado Dash MD Primary care physician Activ e Start: May 03, 2025 End: May 03, 2025 Dr. Maldonado Dash MD Referring Provider Active Start: May 03, 2025 End: May 03, 2025 DREW Christy Attending physician Active Start: May 03, 2025 End: May 03, 2025 Team Status: Inactive Member Role/Relationship Status Dates Dr. Maldonado Dash MD Primary care physician Activ e Start: June 04, 2025 End: June 04, 2025 Dr. Maldonado Dash MD Attending physician Active Start: June 04, 2025 End: June 04, 2025 Dr. Maldonado Dash MD Referring Provider Active Start: June 04, 2025 End: June 04, 2025 Team Status: Inactive Member Role/Relationship Status Dates Dr. Maldonado Dash MD Primary care physician Activ e Start: June 04, 2025 End: June 04, 2025 Dr. Maldonado Dash MD Attending physician Active Start: June 04, 2025 End: June 04, 2025 Dr. Maldonado Dash MD Referring Provider Active Start: June 04, 2025 End: June 04, 2025 Team Status: Active Member Role/Relationship Status Dates Dr. Maldonado Dash MD Primary care physician Activ e Start: June 11, 2025 Dr. Herb Saldana DO Attending physician Active Start: June 11, 2025 Dr. Herb Saldana DO Referring Provider Active Start: June 11, 2025 Reason for Visit (unrecogniz ed section and content) Reason Comments Follow-up FOR RECORDS PERTAINING TO PATIENTS WHO ARE OR HAVE BEEN ENROLLED IN A CHEMICAL DEPENDENCY/SUBSTANCEABUSE PROGRAM, SOME INFORMATION MAY BE OMITTED. This clinical summary was aggregated from multiple sources. Caution should be exercised in using it in the provision of clinical care. This summary normalizes information from multiple sources, and as a consequence, information in this document may materially change the coding, format and clinical context of patient data. In addition, data may be omitted in some cases. CLINICAL DECISIONS SHOULD BE BASED ON THE PRIMARY CLINICAL RECORDS. [facility]. provides no warranty or guarantee of the accuracy or completeness of information in this document.
[2025-06-17 11:03] VITALS: BP 139/74; PULSE 84; RESP 16; TEMP 36.6; O2SAT 100
== END 2025-06-17 11:05 | disposition home or self-care (01) ==
PROVIDERS: Emergency Provider Student in an Organized Health Care Education/Training Program; PCP Internal Medicine; Visit Provider Student in an Organized Health Care Education/Training Program
DX: M25.562 Pain in left knee (principal); G89.29 Other chronic pain; E78.5 Hyperlipidemia, unspecified
CPT/HCPCS: 73564; 99282

== ENCOUNTER → 2025-07-09 | Outpatient (CLI) | payer MEDICARE, SELFPAY ==
[2024-08-04 08:29] VITALS: BMI 30.9
== END | disposition home or self-care (01) ==
LOC: OPBI 10:34
PROVIDERS: PCP Internal Medicine; Referring Provider Nurse Practitioner Women's Health; Visit Provider Nurse Practitioner Women's Health
DX: Z12.31 Encounter for screening mammogram for malignant neoplasm of breast (principal)
CPT/HCPCS: 77063; 77067

== ENCOUNTER → 2025-07-12 | Outpatient (CLI) | payer MEDICARE, SELFPAY ==
[2024-08-04 08:29] VITALS: BMI 30.9
--- NOTE | 2025-07-12 09:45 | BI_ITS ---
EXAM: DIAG MAMM W/CAD, UNILAT 07/12/2025 CLINICAL HISTORY: F, Age 70 y/o , ABN MAMM TECHNIQUE: Procedure Code: [id number] Modality: MG Procedure: DIAG MAMM W/CAD, UNILAT.. Compression spot views of the right breast in the mediolateral oblique and craniocaudad projections were obtained. 90 degree lateral view was obtained as well. COMPARISON: Prior exam(s) dated July 09, 2025.. FINDINGS: TISSUE DENSITY: The breasts are heterogeneously dense, which may obscure small masses. Bilateral Breast Mammographic Findings: No significant masses, calcifications or other abnormalities are identified. BI/DIAG MAMM W/CAD, UNILAT IMPRESSION: No significant abnormality is seen. Targeted sonographic correlation recommend ed. OVERALL FINAL ASSESSMENT BI-RADS 0: INCOMPLETE - NEED ADDITIONAL IMAGING EVALUATION. RECOMMENDATION: Ultrasound Recommended Additional Recommendation none A letter with findings and recommendations will be mailed to the patient. Reading Location: [place] [address]
--- NOTE | 2025-07-12 09:45 | US_ITS ---
PROCEDURE: BREAST LIMITED UNILATERAL 07/12/2025 REASON FOR EXAM: F, Age 70 y/o , ABN MAMM COMPARISON: Prior mammogram dated July 12, 2025 in July 09, 2025.. TECHNIQUE: Procedure Code: [id number] Modality: US Procedure: BREAST LIMITED UNILATERAL. The medial aspect of the right breast was examined with ultrasound. FINDINGS: There is evidence of fibroglandular tissue. No sonographic abnormality is seen. US/Breast Limited Unilateral IMPRESSION: No sonographic abnormality is seen. BI-RADS 2: BENIGN RECOMMENDATION: Routine annual follow-up in 1 Year Reading Location: [place] [address]
== END | disposition home or self-care (01) ==
PROVIDERS: PCP Internal Medicine; Referring Provider Nurse Practitioner Women's Health; Visit Provider Nurse Practitioner Women's Health
DX: R92.8 Other abnormal and inconclusive findings on diagnostic imaging of breast (principal)
CPT/HCPCS: 76642; 77061; 77065; G0279